=== PATIENT | male | born 1930 | race Caucasian/White ===

== ENCOUNTER → 2016-06-09 | Outpatient (CLI) | payer OTHER ==
[~2016-06-09] MED LIST: IOPAMIDOL (ISOVUE-300) 100 ML BTL IV ONE
== END ==
LOC: FIMAGING 14:21
PROVIDERS: ATTEND Internal Medicine
DX: R93.2 Abnormal findings on diagnostic imaging of liver and biliary tract (principal); J90 Pleural effusion, not elsewhere classified
CPT/HCPCS: 74178; Q9967

== ENCOUNTER 2016-06-10 12:24 | Inpatient (IN) | payer OTHER ==
--- NOTE | 2016-06-10 12:34 | EDPHY ---
H & P Time Seen by Provider: 06/10/16 12:31 HPI/ROS: CHIEF COMPLAINT: Here for embolization HISTORY OF PRESENT ILLNESS: This 85-year-old man has a history of atrial fibrillation and is on Eliquis anticoagulation. He is sent [facility] the [facility] for embolization of a bleeding intrahepatic hepatoma. This 85-year-old man has had bloating nausea and right upper per quadrant abdominal pain for the past 2 weeks. He had an ultrasound 2 days [address] a CT scan yesterday was seen in the gastroenterology office today by Dr. Mcbride and sent here for admission in embolization of a bleeding hepatoma in the right upper quadrant. REVIEW OF SYSTEMS: Eye: no change in vision ENT: no sore throat Cardiac: no chest pain or syncope Pulmonary: no cough or SOB Abdomen: No vomiting or diarrhea. Musculoskeletal: no back pain Skin: Ecchymosis especially on the left arm where he had tape placed a couple of days ago. Neuro: no headache. He is chronically little bit unsteady on his feet but no vertigo and no new symptoms of being off balance. Constitutional: no fever : no urinary symptoms A comprehensive 10 point review of systems is otherwise negative aside from elements mentioned in the history of present illness. PAST MEDICAL HISTORY: History and physical by Dr. Martinez dated 03/12/2016 personally reviewed by myself. Includes hyperkalemia, coronary artery disease with bypass grafting, ventricular tachycardia with AICD, atrial fibrillation, small-bowel obstruction , liver hepatoma as in HPI, aortic aneurysm, malignant melanoma, prostatic hypertrophy, ischemic cardiomyopathy. Social history: No tobacco or alcohol General Appearance: Alert and conversant, cooperative. Eyes: No scleral icterus. ENT, Mouth: Normal mucous membranes. Respiratory: Normal respiratory effort, breath sounds equal, lungs are clear to auscultation. Cardiovascular: Regular rate and rhythm. Gastrointestinal: Abdomen is soft and non tender. Central ventral hernia which is soft and not incarcerated. Neurological: Alert and oriented x3. Normally conversant. Face symmetric, normal movement and sensation in all extremities. Skin: Occasional scattered ecchymoses especially over the left AC. Musculoskeletal: No peripheral edema and no joint swelling. Psychiatric: Not agitated. Emergency Department course/MDM: Labs drawn to include CBC chemistries and coags. Admission to hospitalist with interventional Radiology consultation. Mao at [phone]. [phone]: Hematocrit noted is stable at 39, was 37.4 on 05/31/2016; admission to step-down unit anticipating interventional radiology procedure. Smoking Status: Former smoker Constitutional: Initial Vital Signs Temperature (C) 36.4 C 06/10/16 12:30 Heart Rate 77 06/10/16 12:30 Respiratory Rate 18 06/10/16 12:30 Blood Pressure 96/50 L 06/10/16 12:30 O2 Sat (%) 93 06/10/16 12:30 O2 Delivery Mode Room Air Allergies/Adverse Reactions: amiodarone Allergy (Verified 06/10/16 12:33) Other-Enter Comments aspirin Allergy (Verified 06/10/16 12:33) nitrofurantoin [From Macrobid] Allergy (Verified 06/10/16 12:33) nitrofurantoin macrocrystalline [From Macrobid] Allergy (Verified 06/10/16 12:33 ) Xefklkb-Iyr-Kmi Reductase Inhibitor Allergy (Verified 06/10/16 12:33) Home Medications: Medication Instructions Recorded Multivitamins [Multivitamin (*)] 1 each PO DAILY@12 07/09/14 Sotalol HCl [Betapace 80 MG (*)] 120 mg PO BID 07/09/14 Magnesium Hydroxide [Milk of 30 ml PO DAILY PRN #0 udcup 07/19/14 Magnesia (*)] Docusate Sodium [Colace 100 MG (*)] 100 mg PO BID PRN 03/20/15 Furosemide [Lasix 40 MG (*)] 80 mg PO DAILY@12 03/20/15 Omeprazole [Prilosec 20 mg] 20 mg PO DAILY@12 PRN 03/20/15 Mexiletine HCl [Mexiletine HCl 150 150 mg PO BID #60 cap 03/27/15 mg (*)] Spironolactone [Aldactone 25 MG 25 mg PO BID 01/10/16 (*)] Isosorbide Mononitrate [Imdur 30 15 mg PO DAILY@12 03/12/16 mg (*)] Losartan Potassium [Cozaar 25 mg 12.5 mg PO DAILY@12 03/12/16 (*)] [place]-3 Fatty Acids [Fish Oil 1000 1,000 mg PO BID 03/12/16 mg (*)] Acetaminophen [Tylenol ES 500 mg 1,000 mg PO TID PRN 06/10/16 (*)] Apixaban [Eliquis] 5 mg PO BID 06/10/16 Bismuth Subsalicylate 15 ml PO Q3 06/10/16 [Pepto-Bismol oral liquid (*)] Calcium Carbonate [Tums 500MG (*)] 1,000 mg PO Q4 PRN 06/10/16 Carvedilol [Coreg] 6.25 mg PO DAILY@12 06/10/16 Carvedilol [Coreg] 12.5 mg PO BID 06/10/16 Simethicone [GAS-X] 80 - 160 mg PO QID PRN 06/10/16 Medical Decision Making - Diagnostics EKG Interpretation: 12-lead EKG interpreted by me; official reading is in trace master. My interpretation is ventricular paced rhythm at a rate of 70. Differential Diagnosis: Differential for right upper quadrant abdominal pain considered including but not limited to cholecystitis, hepatitis, bleeding hepatoma, right lower lung problem, shingles. Consult/Admit Bed Type: [place] [id number] - Data Points Laboratory Results: Laboratory Results 06/10/16 12:53 06/10/16 12:53 06/10/16 06/10/16 06/10/16 12:53 12:53 12:53 WBC RBC Hgb Hct MCV MCH MCHC RDW Plt Count MPV Neut % (Auto) Lymph % (Auto) [place] % (Auto) Eos % (Auto) Baso % (Auto) Nucleat RBC Rel Count Absolute Neuts (auto) Absolute Lymphs (auto) Absolute Monos (auto) Absolute Eos (auto) Absolute Basos (auto) Absolute Nucleated RBC Immature Gran % Immature Gran # PT 17.4 SEC H SEC (12.0-15.0) INR 1.43 H (0.83-1.16) APTT 33.8 SEC SEC (23.0-38.0) Sodium 138 mEq/L mEq/L (134-144) Potassium 5.1 mEq/L mEq/L (3.5-5.2) Chloride 97 mEq/L mEq/L (97-110) Carbon Dioxide 31 mEq/l mEq/l (22-31) Anion Gap 10 mEq/L mEq/L (8-16) BUN 27 mg/dL H mg/dL (7-23) Creatinine 1.1 mg/dL mg/dL (0.7-1.3) Estimated GFR > 60 Glucose 85 mg/dL mg/dL (70-100) Calcium 9.1 mg/dL mg/dL (8.5-10.4) Total Bilirubin 1.6 mg/dL H mg/dL (0.1-1.4) Conjugated Bilirubin 0.6 mg/dL H mg/dL (0.0-0.5) Unconjugated Bilirubin 1.0 mg/dL mg/dL (0.0-1.1) AST 202 IU/L H IU/L (17-59) ALT 141 IU/L H IU/L (21-72) Alkaline Phosphatase 263 IU/L H IU/L (38-126) Total Protein 7.9 g/dL g/dL (6.3-8.2) Albumin 3.8 g/dL g/dL (3.5-5.0) Patient ABO/Rh B POSITIVE Antibody Screen NEGATIVE 06/10/16 12:53 WBC 6.02 10^3/uL 10^3/uL (3.80-9.50) RBC 4.13 10^6/uL L 10^6/uL (4.40-6.38) Hgb 12.7 g/dL L g/dL (13.7-17.5) Hct 39.4 % L % (40.0-51.0) MCV 95.4 fL fL (81.5-99.8) MCH 30.8 pg pg (27.9-34.1) MCHC 32.2 g/dL L g/dL (32.4-36.7) RDW 14.3 % % (11.5-15.2) Plt Count 271 10^3/uL 10^3/uL (150-400) MPV 9.5 fL fL (8.7-11.7) Neut % (Auto) 69.2 % % (39.3-74.2) Lymph % (Auto) 18.1 % % (15.0-45.0) [place] % (Auto) 11.0 % % (4.5-13.0) Eos % (Auto) 0.7 % % (0.6-7.6) Baso % (Auto) 0.7 % % (0.3-1.7) Nucleat RBC Rel Count 0.0 % % (0.0-0.2) Absolute Neuts (auto) 4.17 10^3/uL 10^3/uL (1.70-6.50) Absolute Lymphs (auto) 1.09 10^3/uL 10^3/uL (1.00-3.00) Absolute Monos (auto) 0.66 10^3/uL 10^3/uL (0.30-0.80) Absolute Eos (auto) 0.04 10^3/uL 10^3/uL (0.03-0.40) Absolute Basos (auto) 0.04 10^3/uL 10^3/uL (0.02-0.10) Absolute Nucleated RBC 0.00 10^3/uL 10^3/uL (0-0.01) Immature Gran % 0.3 % % (0.0-1.1) Immature Gran # 0.02 10^3/uL 10^3/uL (0.00-0.10) PT INR APTT Sodium Potassium Chloride Carbon Dioxide Anion Gap BUN Creatinine Estimated GFR Glucose Calcium Total Bilirubin Conjugated Bilirubin Unconjugated Bilirubin AST ALT Alkaline Phosphatase Total Protein Albumin Patient ABO/Rh Antibody Screen Departure - Departure Disposition: [facility] Acute Clinical Impression: Hepatoma Condition: Serious
[2016-06-10 13:11] LABS: % IMMATURE GRANULYOCYTES 0.3 % (0.0-1.1); ABSOLUTE IMMATURE GRANULOCYTES 0.02 10^3/uL (0.00-0.10); ADD DIFF? NO; ADD MORPH? NO; ADD SCAN? NO; ATYPICAL LYMPHOCYTE FLAG 0 (0-99); FRAGMENT RBC FLAG 0 (0-99); HEMATOCRIT 39.4 % (40.0-51.0); HEMOGLOBIN 12.7 g/dL (13.7-17.5); LEFT SHIFT FLG 0 (0-99); LIPEMIA HEMOLYSIS FLAG 80 (0-99); MEAN CELL HEMOGLOBIN 30.8 pg (27.9-34.1); MEAN CELL HEMOGLOBIN CONCENTR. 32.2 g/dL (32.4-36.7); MEAN CELL VOLUME 95.4 fL (81.5-99.8); MEAN PLATELET VOLUME 9.5 fL (8.7-11.7); PLATELET CLUMPS FLAG 0 (0-99); PLATELET COUNT 271 10^3/uL (150-400); RED BLOOD CELL COUNT 4.13 10^6/uL (4.40-6.38); RED CELL DISTRIBUTION WIDTH 14.3 % (11.5-15.2)
[2016-06-10 13:22] LABS: INR 1.43 (0.83-1.16); PROTIME(PATIENT) 17.4 SEC (12.0-15.0)
[2016-06-10 13:23] LABS: APTT 33.8 SEC (23.0-38.0)
[2016-06-10 13:35] LABS: ALANINE AMINOTRANSFERASE 141 IU/L (21-72); ALBUMIN 3.8 g/dL (3.5-5.0); ALKALINE PHOSPHATASE 263 IU/L (38-126); ANION GAP 10 mEq/L (8-16); ASPARTATE AMINOTRANSFERASE 202 IU/L (17-59); BILIRUBIN,TOTAL 1.6 mg/dL (0.1-1.4); BILIRUBIN-CONJUGATED 0.6 mg/dL (0.0-0.5); CALCIUM 9.1 mg/dL (8.5-10.4); CARBON DIOXIDE 31 mEq/l (22-31); CHLORIDE 97 mEq/L (97-110); CREATININE 1.1 mg/dL (0.7-1.3); GLOMERULAR FILTRATION RATE > 60; GLUCOSE 85 mg/dL (70-100); POTASSIUM 5.1 mEq/L (3.5-5.2); SODIUM 138 mEq/L (134-144); TOTAL PROTEIN 7.9 g/dL (6.3-8.2)
[2016-06-10] MEDS ORDERED: ONDANSETRON 4 MG/2 ML VIAL IVP PRN (14:07)
[2016-06-10] MEDS ORDERED: HYDROmorphONE/DILAUDID 1 MG/ML SYR IVP PRN (14:07)
[2016-06-10] MEDS ORDERED: oxyCODONE IR 5 MG TAB PO PRN (14:07)
[2016-06-10] MEDS ORDERED: ONDANSETRON DISINTEGRATING 4 MG TAB PO PRN (14:07)
[2016-06-10] MEDS ORDERED: NS 1,000 ML IV SCH (14:15)
--- NOTE | 2016-06-10 14:22 | PDGENHP ---
History and Physical - Chief Complaint abdominal pain and bloating - History of Present Illness 85 yo M with MMI including CAD, iCM with most recent EF of 30% as well as A fib on chronic anticoagulation and a known liver mass previously thought to be benign admitted with concerns from GI that he is likely bleeding into this liver tumor. He has been dealing with recurrent UTI versus prostatitis for the last several months and due to that has been on a prolonged course fo macrobid. This was thought to be resolved per his report when he developed the abdominal pain and bloating. He has been seen both by his PCP and GI and has had imaging including abd US and most recently an abdominal CT. The CT showed that this liver lesion had significantly increased in size and it noted to be hypervascular with internal hemorrhage and active bleeding. He was sent here for admission and presumably IR intervention for the bleeding. He notes that other than the abdominal pain and bloating he has felt more or less in his usual state of health. He is not having lightheadedness or fainting, has not had n/v or bowel changes. History Information - Allergies/Home Medication List Allergies/Adverse Reactions: amiodarone Allergy (Verified 06/10/16 12:33) Other-Enter Comments aspirin Allergy (Verified 06/10/16 12:33) nitrofurantoin [From Macrobid] Allergy (Verified 06/10/16 12:33) nitrofurantoin macrocrystalline [From Macrobid] Allergy (Verified 06/10/16 12:33 ) Bhlgczy-Rka-Qip Reductase Inhibitor Allergy (Verified 06/10/16 12:33) Home Medications: Multivitamins [Multivitamin (*)] 1 each PO DAILY@12 07/09/14 [Last Taken ] Sotalol HCl [Betapace 80 MG (*)] 120 mg PO BID 07/09/14 [Last Taken 06/10/16 09: 00] Docusate Sodium [Colace 100 MG (*)] 100 mg PO BID PRN 03/20/15 [Last Taken 03/12 09:00] Furosemide [Lasix 40 MG (*)] 80 mg PO DAILY@12 03/20/15 [Last Taken 06/09/16] Omeprazole [Prilosec 20 mg] 20 mg PO DAILY@12 PRN 03/20/15 [Last Taken 03/11/16] Spironolactone [Aldactone 25 MG (*)] 25 mg PO BID 01/10/16 [Last Taken 06/10/16] Isosorbide Mononitrate [Imdur 30 mg (*)] 15 mg PO DAILY@12 03/12/16 [Last Taken 06/09/16] Losartan Potassium [Cozaar 25 mg (*)] 12.5 mg PO DAILY@12 03/12/16 [Last Taken 06/09/16] [place]-3 Fatty Acids [Fish Oil 1000 mg (*)] 1,000 mg PO BID 03/12/16 [Last Taken 03/12/16 09:00] Acetaminophen [Tylenol ES 500 mg (*)] 1,000 mg PO TID PRN 06/10/16 [Last Taken Unknown] Apixaban [Eliquis] 5 mg PO BID 06/10/16 [Last Taken 06/10/16] Bismuth Subsalicylate [Pepto-Bismol oral liquid (*)] 15 ml PO Q3 06/10/16 [Last Taken Unknown] Calcium Carbonate [Tums 500MG (*)] 1,000 mg PO Q4 PRN 06/10/16 [Last Taken Unknown] Carvedilol [Coreg] 6.25 mg PO DAILY@12 06/10/16 [Last Taken 06/10/16 08:00] Carvedilol [Coreg] 12.5 mg PO BID 06/10/16 [Last Taken 06/10/16 08:00] Simethicone [GAS-X] 80 - 160 mg PO QID PRN 06/10/16 [Last Taken Unknown] I have personally reviewed and updated: family history, medical history, social history, surgical history - Past Medical History atrial fibrillation, coronary artery disease, cancer (malignant melanoma), CHF ( ischemic CM with EF of 15% and now 30%), hypertension, hyperlipidemia, liver disease (known liver mass, previously thought to be benign, as per HPI) Additional medical history: BPH. VT with VT storm requiring ablation. AAA - Surgical History Reports: coronary bypass surgery, cholecystectomy, pacemaker/AICD Additional surgical history: AAA repair. small bowel resection for SBO with HARRIS and bezoar - Family History Positive for: non-pertinent - Social History Smoking Status: Former smoker Alcohol Use: None Drug Use: None Additional social history: , lives independently with Review of Systems ROS: 10pt was reviewed & negative except for what was stated in HPI & below Physical Exam Temp Pulse Resp BP Pulse Ox 36.4 C 77 18 96/50 L 93 06/10/16 12:30 06/10/16 12:30 06/10/16 12:30 06/10/16 12:30 06/10/16 12:30 Constitutional: not in pain, chronically ill appearing Eyes: PERRL Ears, Nose, Mouth, Throat: moist mucous membranes, hearing normal Cardiovascular: regular rate and rhythym, no murmur, rub, or gallop, edema Respiratory: no respiratory distress, no rales or rhonchi, reduced air movement (at bases bilaterally) Gastrointestinal: normoactive bowel sounds, tenderness (slight ttp in ruq), distension, No guarding, No rebound Genitourinary: no bladder tenderness Skin: warm, normal color Musculoskeletal: full muscle strength, No asymmetric calves, No muscular tenderness Neurologic: AAOx3, CN II-XII Intact Psychiatric: interacting appropriately, not anxious, not encephalopathic Lab Data & Imaging Review 06/10/16 12:53 06/10/16 12:53 WBC 6.02 10^3/uL (3.80-9.50) 06/10/16 12:53 RBC 4.13 10^6/uL (4.40-6.38) L 06/10/16 12:53 Hgb 12.7 g/dL (13.7-17.5) L 06/10/16 12:53 Hct 39.4 % (40.0-51.0) L 06/10/16 12:53 MCV 95.4 fL (81.5-99.8) 06/10/16 12:53 MCH 30.8 pg (27.9-34.1) 06/10/16 12:53 MCHC 32.2 g/dL (32.4-36.7) L 06/10/16 12:53 RDW 14.3 % (11.5-15.2) 06/10/16 12:53 Plt Count 271 10^3/uL (150-400) 06/10/16 12:53 MPV 9.5 fL (8.7-11.7) 06/10/16 12:53 Neut % (Auto) 69.2 % (39.3-74.2) 06/10/16 12:53 Lymph % (Auto) 18.1 % (15.0-45.0) 06/10/16 12:53 [place] % (Auto) 11.0 % (4.5-13.0) 06/10/16 12:53 Eos % (Auto) 0.7 % (0.6-7.6) 06/10/16 12:53 Baso % (Auto) 0.7 % (0.3-1.7) 06/10/16 12:53 Nucleat RBC Rel Count 0.0 % (0.0-0.2) 06/10/16 12:53 Absolute Neuts (auto) 4.17 10^3/uL (1.70-6.50) 06/10/16 12:53 Absolute Lymphs (auto) 1.09 10^3/uL (1.00-3.00) 06/10/16 12:53 Absolute Monos (auto) 0.66 10^3/uL (0.30-0.80) 06/10/16 12:53 Absolute Eos (auto) 0.04 10^3/uL (0.03-0.40) 06/10/16 12:53 Absolute Basos (auto) 0.04 10^3/uL (0.02-0.10) 06/10/16 12:53 Absolute Nucleated RBC 0.00 10^3/uL (0-0.01) 06/10/16 12:53 Immature Gran % 0.3 % (0.0-1.1) 06/10/16 12:53 Immature Gran # 0.02 10^3/uL (0.00-0.10) 06/10/16 12:53 PT 17.4 SEC (12.0-15.0) H 06/10/16 12:53 INR 1.43 (0.83-1.16) H 06/10/16 12:53 APTT 33.8 SEC (23.0-38.0) 06/10/16 12:53 Sodium 138 mEq/L (134-144) 06/10/16 12:53 Potassium 5.1 mEq/L (3.5-5.2) 06/10/16 12:53 Chloride 97 mEq/L (97-110) 06/10/16 12:53 Carbon Dioxide 31 mEq/l (22-31) 06/10/16 12:53 Anion Gap 10 mEq/L (8-16) 06/10/16 12:53 BUN 27 mg/dL (7-23) H 06/10/16 12:53 Creatinine 1.1 mg/dL (0.7-1.3) 06/10/16 12:53 Estimated GFR > 60 06/10/16 12:53 Glucose 85 mg/dL (70-100) 06/10/16 12:53 Calcium 9.1 mg/dL (8.5-10.4) 06/10/16 12:53 Total Bilirubin 1.6 mg/dL (0.1-1.4) H 06/10/16 12:53 Conjugated Bilirubin 0.6 mg/dL (0.0-0.5) H 06/10/16 12:53 Unconjugated Bilirubin 1.0 mg/dL (0.0-1.1) 06/10/16 12:53 AST 202 IU/L (17-59) H 06/10/16 12:53 ALT 141 IU/L (21-72) H 06/10/16 12:53 Alkaline Phosphatase 263 IU/L (38-126) H 06/10/16 12:53 Total Protein 7.9 g/dL (6.3-8.2) 06/10/16 12:53 Albumin 3.8 g/dL (3.5-5.0) 06/10/16 12:53 Patient ABO/Rh B POSITIVE 06/10/16 12:53 Antibody Screen NEGATIVE 06/10/16 12:53 Visualized and Interpreted imaging results: Yes Interpretation: abdominal CT from 06/09: large hypervascular mass in R lobe of liver increased signficantly in size from prior w/ internal hemorrhage and active bleeding. --8th rib lesion most c/w metastasis Assessment & Plan Assessment: 85 yo M with MMI including CAD, CHF, A fib on chronic AC presenting with bleeding into liver mass # bleeding liver mass: noted to have active bleeding into large liver mass, most c/w HCC on imaging though previously benign on biopsy. IR is aware and plans to to perform angio in the am so long as he remains stable overnight-- patient did take his eliquis this am. Currently H/H are stable and hemodynamically stable though mildly hypotensive. Will trend h/h. Admit for close monitoring. # liver mass: as above with evidence of active bleeding and mass significantly increased from prior. Given comorbidities and patient goals, there are not plans to aggressively treat this mass. Is followed by [facility]. # chronic systolic heart failure: with EF of 30% most recently, appears to be largely euvolemic currently. Will monitor daily weight. Continue OP medications # a fib: with hx of multiple prior ablations, anti-coagulated as above, will hold eliquis for now and monitor on tele # CAD: without any recent issues, continue op meds # hx of: malignant melanoma, HTN, HLD, BPH # recent recurrent UTI/prostatitis: followed by urology, had been on macrobid for a prolonged period of time which is now listed as an allergy. Last urine culture showing > 100K or normal urogenital bonny on 05/31. No current sxs # dispo :IP status, high risk presenting issues Patient is new to my care. Old records reviewed and summarized as above. Care plan reviewed with ER doctor and Dr. Singh of IR.
[2016-06-10] MEDS ORDERED: ACETAMINOPHEN 500 MG TAB PO PRN (15:00)
[2016-06-10] MEDS ORDERED: DOCUSATE SODIUM 100 MG CAP PO PRN (15:00)
[2016-06-10] MEDS ORDERED: SIMETHICONE 80 MG TAB CHEW PO PRN (15:00)
--- NOTE | 2016-06-10 15:57 | CPEKG ---
Heart Rate: 70 RR Interval: 857 P-R Interval: 206 QRSD Interval: 178 QT Interval: 460 QTC Interval: 497 P Jarreau: 0 QRS Jarreau: 143 EKG Severity - ABNORMAL ECG - EKG Impression: VENTRICULAR-PACED RHYTHM Electronically Signed By: Noble Schrader 10-Jun-2016 16:29:23
[2016-06-10] MEDS: BISMUTH SUBSALICYLATE 524 MG/30 ML UDL PO SCH ×4 (17:33→23:58)
--- NOTE | 2016-06-10 17:52 | GCON ---
INPATIENT CONSULTATION NOTE REASON FOR CONSULTATION: Right upper quadrant pain and abnormal imaging of the GI tract. CHIEF COMPLAINT: Abdominal pain. HISTORY OF PRESENT ILLNESS: Briefly, the patient is an 85-year-old male with a history of chronic liver disease. He is uncertain exactly the nature of his chronic liver disease. He reports that he has been told over the last many decades of intermittent liver problems. He has undergone prior liver biopsy, including biopsy of an apparent liver mass. He reports these tests have been nondiagnostic. Over the last several weeks, he was noticing increasing abdominal discomfort. He recently had a urinary tract infection for which he was treated with antibiotics. After his urinary tract infection was resolved, he continued to have abdominal symptoms. His primary care doctor worked up those symptoms with laboratory testing and imaging. Imaging revealed a hepatic lesion with probable bleeding into it. With those symptoms and imaging findings , he was asked to present to the hospital for further management. PAST MEDICAL HISTORY: Includes atrial fibrillation for which he is on anticoagulation, dysphagia, elevated liver enzymes, esophagitis, heart disease, hypertension. Also has a recent history of congestive heart failure and has had an AICD and pacemaker placed. It was initially felt that his liver lesion was focal nodular hyperplasia. OUTPATIENT MEDICATIONS: Antacids, carvedilol, Colace, Eliquis, fish oil, isosorbide dinitrate, Klor-Con, Lasix, losartan, mexiletine, multivitamin, omeprazole, Pepto-Bismol, simethicone, milk of magnesia, sotalol, spironolactone , and Tylenol. ALLERGIES: Flomax. SOCIAL HISTORY: He drinks 3 cups of coffee a day. Does not smoke; was a former smoker. Is not using alcohol; his last alcohol use was in the ; prior to that, he drank on social occasions. He does not use any drugs. He is currently retired and . FAMILY HISTORY: Negative for chronic liver disease or liver cancer. His sister did have perhaps esophageal and lung cancer. REVIEW OF SYSTEMS: A complete 10-system review is undertaken with the patient and is negative except for those details described in the History of Present Illness. Pertinent positives and negatives are described there. PHYSICAL EXAM: GENERAL: This is a well-developed, well-nourished male, in no apparent distress. SKIN: Warm and dry. He has no icterus. HEENT: Exam reveals normocephalic exam with no scleral icterus. His oropharynx is grossly normal. NECK: Supple without lymphadenopathy. HEART: Regular without murmur. LUNGS: Normal with good respiratory effort. ABDOMEN: Soft, nontender. He has minimal right upper quadrant tenderness. There is no masses , rebound, or guarding. EXTREMITIES: Show no edema, cyanosis, or clubbing. NEURO: Exam is grossly nonfocal. He has no asterixis. MUSCULOSKELETAL: He appears to have good range of motion with normal station. LABORATORY TESTING: On 06/09/16, he had an abdominal and pelvis CT scan with and without IV contrast which revealed large hypervascular mass in the right lobe of the liver that has increased in size since June of 2014 and is suspicious for hepatocellular carcinoma. The mass has internal hemorrhage and probable active bleeding contained within the liver capsule. There are also numerous new hypervascular lesions scattered throughout the liver, suspicious for new multicentric hepatocellular carcinoma. There is also trace reactive stranding and fluid along the posterior capsule without hemoperitoneum. There is a sclerotic right 8th rib lesion as well. White count of 6.01, hematocrit of 39.4, hemoglobin of 12.7, platelet count of 271. INR of 1.43. Sodium of 138, potassium of 5.1, chloride of 97, bicarb of 31, BUN of 27, creatinine of 1.1. AST of 202, ALT of 141, alkaline phosphatase of 263, total bilirubin of 1.6. AFP of 3.6. IMPRESSION/RECOMMENDATIONS: The patient has been diagnosed with a liver mass with internal bleeding. The differential diagnosis for this includes hemangioma , hepatoma, focal nodular hyperplasia, etc. The radiographic appearance would be consistent with hepatoma. He reports having an uncertain chronic liver disease, to the degree that that may lead to cirrhosis, this would increase his likelihood of developing hepatoma. Given his ongoing symptoms and radiographic findings, additional management workup is necessary. IR services will be consulted in order to consider embolization of the bleeding into this lesion. We may need to consider repeat biopsy as well. AFP was normal, but this can be normal in as many as 40% of true hepatomas. Pending the success of the IR intervention, additional liver work-up may be indicated. It is not clear to me if the patient has underlying chronic liver disease. I will obtain his prior workup to review. /[id number]/MODL MTDD
[2016-06-10] MEDS: LOSARTAN POTASSIUM 25 MG TAB PO SCH (18:00)
[2016-06-10] MEDS: ISOSORBIDE MONONITRATE 30 MG TAB.SR PO SCH (18:02)
[2016-06-10] MEDS: CARVEDILOL 6.25 MG TAB PO SCH (18:21)
[2016-06-10] MEDS: ACETAMINOPHEN 325 MG TAB PO PRN (21:04)
[2016-06-10] MEDS: MAGNESIUM HYDROXIDE 30 ML UDCUP PO PRN (21:05)
[2016-06-10] MEDS: SOTALOL HCL 80 MG TAB PO SCH (21:05)
[2016-06-10] MEDS: OMEGA-3 FATTY ACIDS 1,000 MG CAP PO SCH (21:08)
[2016-06-10] MEDS: MEXILETINE HCL 150 MG CAP PO SCH (21:11)
[2016-06-10 22:58] LABS: HEMATOCRIT 32.6 % (40.0-51.0); HEMOGLOBIN 10.9 g/dL (13.7-17.5)
[2016-06-10] MEDS: CALCIUM CARBONATE 500 MG CHEWABLE TAB PO PRN (23:02)
[2016-06-10] MEDS: PANTOPRAZOLE SODIUM 40 MG TAB PO PRN (23:20)
[2016-06-11] MEDS: BISMUTH SUBSALICYLATE 524 MG/30 ML UDL PO SCH ×8 (00:07→20:23)
[2016-06-11 05:06] LABS: % IMMATURE GRANULYOCYTES 0.5 % (0.0-1.1); ABSOLUTE IMMATURE GRANULOCYTES 0.02 10^3/uL (0.00-0.10); ADD DIFF? NO; ADD MORPH? NO; ADD SCAN? NO; ATYPICAL LYMPHOCYTE FLAG 0 (0-99); FRAGMENT RBC FLAG 0 (0-99); HEMATOCRIT 32.9 % (40.0-51.0); HEMOGLOBIN 10.7 g/dL (13.7-17.5); LEFT SHIFT FLG 0 (0-99); LIPEMIA HEMOLYSIS FLAG 80 (0-99); MEAN CELL HEMOGLOBIN 30.7 pg (27.9-34.1); MEAN CELL HEMOGLOBIN CONCENTR. 32.5 g/dL (32.4-36.7); MEAN CELL VOLUME 94.3 fL (81.5-99.8); MEAN PLATELET VOLUME 9.5 fL (8.7-11.7); PLATELET CLUMPS FLAG 0 (0-99); PLATELET COUNT 171 10^3/uL (150-400); RED BLOOD CELL COUNT 3.49 10^6/uL (4.40-6.38); RED CELL DISTRIBUTION WIDTH 14.1 % (11.5-15.2)
[2016-06-11 05:20] LABS: ALANINE AMINOTRANSFERASE 155 IU/L (21-72); ALBUMIN 2.8 g/dL (3.5-5.0); ALKALINE PHOSPHATASE 198 IU/L (38-126); ANION GAP 5 mEq/L (8-16); ASPARTATE AMINOTRANSFERASE 260 IU/L (17-59); BILIRUBIN,TOTAL 1.4 mg/dL (0.1-1.4); CALCIUM 8.2 mg/dL (8.5-10.4); CARBON DIOXIDE 29 mEq/l (22-31); CHLORIDE 101 mEq/L (97-110); CREATININE 0.9 mg/dL (0.7-1.3); GLOMERULAR FILTRATION RATE > 60; GLUCOSE 69 mg/dL (70-100); POTASSIUM 4.3 mEq/L (3.5-5.2); SODIUM 135 mEq/L (134-144); TOTAL PROTEIN 6.1 g/dL (6.3-8.2)
[2016-06-11] MEDS: MEXILETINE HCL 150 MG CAP PO SCH ×2 (08:31→17:52)
[2016-06-11] MEDS: ACETAMINOPHEN 325 MG TAB PO PRN (08:31)
[2016-06-11] MEDS: SOTALOL HCL 80 MG TAB PO SCH ×2 (08:32→20:23)
[2016-06-11] MEDS: CARVEDILOL 6.25 MG TAB PO SCH ×3 (08:32→17:52)
[2016-06-11] MEDS ORDERED: POTASSIUM CL 20 MEQ TAB PO ONE (09:30)
[2016-06-11] MEDS: CALCIUM CARBONATE 500 MG CHEWABLE TAB PO PRN (10:26)
[2016-06-11] MEDS: OMEGA-3 FATTY ACIDS 1,000 MG CAP PO SCH ×2 (10:42→20:23)
[2016-06-11] MEDS ORDERED: MIDAZOLAM 2 MG/2 ML VIAL ONE ×2 (11:40→13:48)
[2016-06-11] MEDS ORDERED: fentaNYL 100 MCG/2 ML INJ ONE ×2 (11:41→13:48)
--- NOTE | 2016-06-11 11:48 | SOAPPROG ---
[facility] Progress Note Assessment/Plan: Assessment/Plan: 1. Liver lesion: - diagnosis uncertain - imaging has been suggestive of hepatoma - wedge bx in 2015 was consistent with FNH - recent clinical behavior (bleeding, localized spread) is more consistent with hepatoma - no obvious hx of fpc chronic liver disease - await IR intervention with embolization and bx - Dr. Ibrahim to assume GI rounds starting tonight at 1700, call with any questions. Subjective: CC: getting bored S: no pain no nausea no vomiting no diarrhea no jaundice no fever no dizziness feels hungry Objective: Vital Signs Temp Pulse Resp BP Pulse Ox 36.7 C 70 20 112/53 L 97 06/11/16 07:52 06/11/16 08:32 06/11/16 07:52 06/11/16 08:32 06/11/16 07:52 Laboratory Results 06/11/16 04:55 06/11/16 04:55 06/10/16 06/11/16 06/12/16 05:59 05:59 05:59 Intake Total 450 Output Total 875 Balance -425 PT 17.4 SEC (12.0-15.0) H 06/10/16 12:53 INR 1.43 (0.83-1.16) H 06/10/16 12:53 Physical Exam - Physical Exam General Appearance: alert EENT: No scleral icterus (R), No scleral icterus (L) Respiratory: lungs clear Cardiac/Chest: regular rate, rhythm, No edema Abdomen: normal bowel sounds Skin: normal color Extremities: normal range of motion Neuro/Psych: no motor/sensory deficits ICD10 Worksheet Patient Problems: Problems Problem Status Onset Hepatoma Acute Abdominal pain, epigastric Acute Afib Acute CHF (congestive heart failure) Acute Chest pain Acute Coronary artery disease Acute Hyperkalemia Acute Ischemic cardiomyopathy Acute Palpitations Acute Urinary tract infection Acute Ventricular tachycardia Acute Ventricular tachycardia by electrocardiogram Acute
[2016-06-11] MEDS ORDERED: NA BICARBONATE 50 MEQ/50 ML VIAL ONE (13:21)
[2016-06-11] MEDS ORDERED: LIDOCAINE 1% 30 ML SDV ONE (13:21)
--- NOTE | 2016-06-11 13:44 | GCON ---
CRITICAL CARE CONSULT. The patient is an 85-year-old male, with a history of cardiomyopathy with a known ejection fraction of 30%, and atrial fibrillation, along with other tachycardic issues. He has had a known liver mass that apparently was biopsied in the past consistent with FNH, who was admitted after imaging in the GI clinic noted an increasing size of a hepatoma, while he was having complaints of nausea and righ t upper quadrant pain for the last 2 weeks. In any case, he denied any symptoms today and is waitin g to go to Interventional Radiology for potential embolization. He is having some difficulty with m anaging his medications, which have been addressed elsewhere. REVIEW OF SYSTEMS: Otherwise negative. PAST MEDICAL HISTORY: Includes: 1. Ischemic cardiomyopathy with an ejection fraction of 30%. 2. Coronary artery disease. 3. Atrial fibrillation. 4. Chronic or recurrent urinary tract infections. 5. History of ventricular tachycardia requiring ablation. 6. Gastroesophageal reflux disease. 7. Melanoma. 8. Hypertension. 9. Hyperlipidemia. 10. Abdominal aortic aneurysm. 11. The liver mass as described above. PAST SURGICAL HISTORY: Includes coronary artery bypass grafting, pacemaker placement, cholecystecto my, AAA repair, and previous small bowel resection with lysis of adhesions due to a bezoar. SOCIAL HISTORY: He is a remote smoker, no alcohol or IV drug use. FAMILY HISTORY: Noncontributory. MEDICATIONS: Include sotalol, Lasix, omeprazole, Aldactone, Imdur, losartan, Eliquis, and carvedilo l. PHYSICAL EXAMINATION: VITAL SIGNS: He is afebrile, his blood pressure is 104/48, heart rate of 70, and sinus rhythm, respiratory rate of 18, oxygen saturation 98% on 2 L. He was awake and alert, in no apparent distress, and did not complain about medications to me. He spoke in full sentences wit hout using accessory muscles of breathing. HEENT: Pupils are equally round and reactive to light, noninjected, and nonicteric. Mucous membranes were dry but no erythema or exudate. NECK: Supple, without adenopathy or jugular vein distention. RESPIRATORY: Breath sounds are clear to auscultatio n bilaterally, without wheezes, rubs or rales. HEART: Regular rate and rhythm, without obvious mur mur to me. ABDOMEN: Soft, only tender to very deep palpation, but no rebound, no guarding, and nor moactive bowel tones. EXTREMITIES: Show no clubbing, cyanosis, or edema. NEUROLOGIC: Exam is non focal. LABORATORIES: Objective data includes his white count of 3.89, hematocrit 32, platelets of 171, INR was 1.4 yesterday, PTT was normal. Basic metabolic panel was normal. His AST was 260 today, 155 f or the ALT, 198 for alkaline phosphatase, albumin of 2.8. ASSESSMENT: 1. Intrahepatic bleeding with stable hemodynamics and blood counts. He is going to Interventional Radiology soon for embolization of this lesion, but otherwise has a very benign abdomen. 2. Atrial fibrillation and other arrhythmias. Because of his lowish blood pressure it is probably reasonable to continue his carvedilol at this time, maybe holding his sotalol to make sure that his rate stays reasonably well-controlled. Because his blood pressure is low I would probably hold his Imdur for now, and monitor for any sort of changes. In addition, the losartan should be held becaus e of his low blood pressure. 3. Transaminitis, this is likely due to his probable hepatoma. My understanding is that he is not interested in further workup of this mass at this time, but is interested in stopping any further bl eeding. /[id number]/MODL
[2016-06-11] MEDS ORDERED: IOPAMIDOL (ISOVUE-300) 100 ML BTL IV ONE (14:45)
[2016-06-11] MEDS ORDERED: HEPARIN 10,000 UNIT/10 ML MDV ONE (14:45)
[2016-06-11] MEDS ORDERED: NALOXONE HCL 0.4 MG/ML INJ IVP PRN (14:50)
[2016-06-11] MEDS ORDERED: HYDROmorphONE/DILAUDID 6 MG/30 ML PCA IV PRN (14:50)
--- NOTE | 2016-06-11 14:53 | POSTOPPROG ---
Post Op Note Date of Operation: 06/11/16 Surgeon: Lizy Singh Anesthesia: IV Sedation (fentanyl and versed) Pre-op Diagnosis: large liver masses, bleeding Post-op Diagnosis: same Indication: hypotension from bleeding Procedure: liver angiogram with embolization Findings: inferior RT hepatic artery bleeding, embolized Inf/Abcess present in the surg proc area at time of surgery?: No Depth: Superfical (Skin SQ) EBL: Minimal Complications: None
[2016-06-11] MEDS ORDERED: NS 1,000 ML IV SCH (15:00)
[2016-06-11] MEDS: MULTIVITAMINS 1 EACH TAB PO SCH (15:54)
[2016-06-11] MEDS: ISOSORBIDE MONONITRATE 30 MG TAB.SR PO SCH (15:54)
[2016-06-11] MEDS: LOSARTAN POTASSIUM 25 MG TAB PO SCH (15:54)
--- NOTE | 2016-06-11 16:38 | PDCARPN ---
Cardiology Progress Note Assessment/Plan: Assessment: Patient is an 85-year-old male well-known to me who has a complex cardiac history which includes CAD with prior CABG, ischemic cardiomyopathy with severely reduced left ventricular systolic function, s/p biventricular pacemaker /ICD, paroxysmal atrial fibrillation, and ventricular tachycardia. Currently hospitalized because of concerns over her bleeding into a hepatic mass. Patient has had a liver tumor for several years. It was previously biopsied and found to be nonmalignant. 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 He underwent an IR embolization procedure earlier today without complications. He reports that he has been stable with respect to his heart. He has not had any recent episodes of angina. His weight/volume status had been stable. He has not had any tachycardia episodes or shocks from his ICD. Plan: > Continue his usual cardiac medications as his blood pressure allows. > His most important medications are his sotalol, mexiletine, and carvedilol since they relate directly to his significant arrhythmia history. > Additionally, he tends to have more episodes of tachycardia and atrial fibrillation with relatively normal potassium levels- i.e; less than 4.5. > Goal serum potassium level for him is close to 5.0. > His Eliquis is currently on hold because of his admitting diagnosis and procedure. This can be held for as long as it is medically necessary and should be restarted as soon as it is safe to do so. 06/11/16 16:32 Subjective: No complaints. Reviewed/Discussed With: family Objective: Vital Signs (8 Hrs) Temp Pulse Resp BP Pulse Ox 06/11/16 11:36 36.6 C 70 18 104/48 L 98 06/11/16 08:32 70 112/53 L Intake/Output (24 Hrs) 06/10/16 06/11/16 06/12/16 05:59 05:59 05:59 Intake Total 450 Output Total 875 Balance -425 Intake: Oral (ml) 450 Output: Urine (ml) 875 Urinal 875 Other: Weight 80.739 kg 81.148 kg Intake Quantity Yes Sufficient Number of Voids Urinal 4 Number of Stools Urinal 4 1 Result Diagrams: 06/11/16 04:55 06/11/16 04:55 - Physical Exam Constitutional: other (chronically ill-appearing) Eyes: anicteric sclera Ears, Nose, Mouth, Throat: moist mucous membranes Cardiovascular: regular rate and rhythm Respiratory: clear to auscultate bilat Gastrointestinal: normoactive bowel sounds, no tenderness Skin: no rashes, no edema Neurologic: AAOx3 Psychiatric: not anxious ICD10 Worksheet Patient Problems: Problems Problem Status Onset Abdominal pain, epigastric Acute Afib Acute Ischemic cardiomyopathy Acute Coronary artery disease Acute Ventricular tachycardia Acute Palpitations Acute Chest pain Acute Ventricular tachycardia by electrocardiogram Acute Hyperkalemia Acute Urinary tract infection Acute CHF (congestive heart failure) Acute Hepatoma Acute
--- NOTE | 2016-06-11 16:54 | HOSPPROG ---
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 Will monitor daily weight. Continue OP medications # a fib: with hx of multiple prior ablations, anti-coagulated as above, will hold eliquis for now and monitor on tele # CAD: without any recent issues, continue op meds # hx of: malignant melanoma, HTN, HLD, BPH # recent recurrent UTI/prostatitis: followed by urology, had been on macrobid for a prolonged period of time which is now listed as an allergy. Last urine culture showing > 100K or normal urogenital bonny on 05/31. No current sxs # dispo :IP status, probable home tomorrow if stable Subjective: status post liver ambulation. Having some right upper quadrant pain. No new complaints Objective: Vital Signs Temp Pulse Resp BP Pulse Ox 36.6 C 70 18 104/48 L 98 06/11/16 11:36 06/11/16 11:36 06/11/16 11:36 06/11/16 11:36 06/11/16 11:36 Laboratory Results 06/11/16 04:55 06/11/16 04:55 06/10/16 06/11/16 06/12/16 05:59 05:59 05:59 Intake Total 450 Output Total 875 Balance -425 PT 17.4 SEC (12.0-15.0) H 06/10/16 12:53 INR 1.43 (0.83-1.16) H 06/10/16 12:53 - Physical Exam Constitutional: no apparent distress, appears nourished, not in pain Eyes: anicteric sclera, EOMI Ears, Nose, Mouth, Throat: moist mucous membranes Cardiovascular: regular rate and rhythym Respiratory: no respiratory distress, no rales or rhonchi, clear to auscultation Gastrointestinal: normoactive bowel sounds, soft, non-tender abdomen, no palpable masses Skin: warm Neurologic: AAOx3 Psychiatric: interacting appropriately, not anxious, not encephalopathic, thought process linear ICD10 Worksheet Patient Problems: Problems Problem Status Onset Hepatoma Acute Abdominal pain, epigastric Acute Afib Acute CHF (congestive heart failure) Acute Chest pain Acute Coronary artery disease Acute Hyperkalemia Acute Ischemic cardiomyopathy Acute Palpitations Acute Urinary tract infection Acute Ventricular tachycardia Acute Ventricular tachycardia by electrocardiogram Acute
[2016-06-11] MEDS: PANTOPRAZOLE SODIUM 40 MG TAB PO PRN (20:24)
[2016-06-12] MEDS: BISMUTH SUBSALICYLATE 524 MG/30 ML UDL PO SCH ×5 (01:08→14:00)
[2016-06-12 04:28] LABS: % IMMATURE GRANULYOCYTES 0.5 % (0.0-1.1); ABSOLUTE IMMATURE GRANULOCYTES 0.04 10^3/uL (0.00-0.10); ADD DIFF? NO; ADD MORPH? NO; ADD SCAN? NO; ATYPICAL LYMPHOCYTE FLAG 0 (0-99); FRAGMENT RBC FLAG 0 (0-99); HEMATOCRIT 36.8 % (40.0-51.0); HEMOGLOBIN 11.9 g/dL (13.7-17.5); LEFT SHIFT FLG 0 (0-99); LIPEMIA HEMOLYSIS FLAG 80 (0-99); MEAN CELL HEMOGLOBIN 30.5 pg (27.9-34.1); MEAN CELL HEMOGLOBIN CONCENTR. 32.3 g/dL (32.4-36.7); MEAN CELL VOLUME 94.4 fL (81.5-99.8); MEAN PLATELET VOLUME 9.6 fL (8.7-11.7); PLATELET CLUMPS FLAG 0 (0-99); PLATELET COUNT 188 10^3/uL (150-400); RED CELL DISTRIBUTION WIDTH 14.3 % (11.5-15.2)
[2016-06-12 04:36] LABS: ANION GAP 6 mEq/L (8-16); CALCIUM 8.5 mg/dL (8.5-10.4); CARBON DIOXIDE 26 mEq/l (22-31); CHLORIDE 102 mEq/L (97-110); CREATININE 0.9 mg/dL (0.7-1.3); GLOMERULAR FILTRATION RATE > 60; GLUCOSE 106 mg/dL (70-100); POTASSIUM 4.9 mEq/L (3.5-5.2); SODIUM 134 mEq/L (134-144)
[2016-06-12] MEDS: CARVEDILOL 6.25 MG TAB PO SCH ×3 (08:35→19:41)
[2016-06-12] MEDS: SOTALOL HCL 80 MG TAB PO SCH ×2 (08:35→19:42)
[2016-06-12] MEDS: MEXILETINE HCL 150 MG CAP PO SCH ×2 (08:36→19:41)
[2016-06-12] MEDS: OMEGA-3 FATTY ACIDS 1,000 MG CAP PO SCH ×2 (08:37→19:53)
--- NOTE | 2016-06-12 10:04 | PDCARPN ---
Cardiology Progress Note Chief Complaint: Patient is an 85-year-old male with a complex cardiac history which includes CAD with prior CABG, ischemic cardiomyopathy with severely reduced left ventricular systolic function, s/p biventricular pacemaker/ICD, paroxysmal atrial fibrillation, and ventricular tachycardia. Assessment/Plan: Assessment: At the present time he appears to be stable. He has no indication of volume overload clinically. His weight, however, is up several kg. He has not received any of his diuretics. Plan: Will plan to restart his Aldactone and Lasix. We will continue to follow him during his hospitalization here. His systemic anticoagulation can be restarted when this is thought appropriate with respect to his recent procedure. I did order follow-up electrolytes for the morning. We will continue to follow him on telemetry. There are considerations to potentially discharging him later today. 06/12/16 10:05 Subjective: The patient was seen and examined. His chart was reviewed. This is my 1st day seen the patient. I am covering for the weekend. He states that he is feeling well. He has no shortness of breath. He denies chest discomfort. He does feel a little bit weak and is experiencing mild right flank pain especially with deep inspiration. He has not had any hemodynamic instability. Reviewed/Discussed With: other ( Nurse) Objective: Vital Signs (8 Hrs) Temp Pulse Resp BP Pulse Ox 06/12/16 08:00 36.4 C 86 18 106/54 L 94 06/12/16 04:00 70 16 118/65 96 Intake/Output (24 Hrs) 06/11/16 06/12/16 06/13/16 05:59 05:59 05:59 Intake Total 450 1925 Output Total 875 1100 Balance -425 825 Intake: Oral (ml) 450 900 IV Infused (ml) 1025 Ns 1,000 ml @ 100 mls/hr 1025 IV CONT MICHEAL Rx#: [id number] Output: Urine (ml) 875 1100 Urinal 875 1100 Other: Weight 80.739 kg 81.148 kg 85 kg Intake Quantity Yes Sufficient Number of Voids Diapers/Briefs 2 Urinal 4 Number of Stools Urinal 4 1 Result Diagrams: 06/12/16 04:10 06/12/16 04:10 Telemetry: Atrial fibrillation. Ventricular pacing. - Physical Exam Constitutional: WDWN, healthy appearing Ears, Nose, Mouth, Throat: moist mucous membranes Cardiovascular: regular rate and rhythm, other (No edema.), No no murmurs, No no rubs, No no gallops, No jugular vein distention Peripheral Pulses: 1+: carotid (R), carotid (L) Respiratory: clear to auscultate bilat, no crackles, no wheezes Neurologic: AAOx3 Psychiatric: cooperative, interactive ICD10 Worksheet Patient Problems: Problems Problem Status Onset Hepatoma Acute Abdominal pain, epigastric Acute Afib Acute CHF (congestive heart failure) Acute Chest pain Acute Coronary artery disease Acute Hyperkalemia Acute Ischemic cardiomyopathy Acute Palpitations Acute Urinary tract infection Acute Ventricular tachycardia Acute Ventricular tachycardia by electrocardiogram Acute
[2016-06-12] MEDS: SPIRONOLACTONE 25 MG TAB PO SCH ×2 (10:07→19:42)
--- NOTE | 2016-06-12 10:31 | SOAPPROG ---
SOAP Progress Note Assessment/Plan: Assessment: 1. Hepatic mass with bleed; stable after embolization at IR yesterday(biopsies pending). 2. Post-hemorrhagic anemia; stable. 3. RUQ abdominal pain secondary to recent IR embolization and bx of liver mass. 4. Nausea secondary to pain meds. 5. IHD and fluid overload, under management per Cardiology. Plan: Await liver mass path. Rishi Ibrahim MD 06/12/16 10:32 Subjective: CC: Liver mass with bleed. Interval HPI: Patient resting in bed. C/O some dull RUQ pain since IR embolization of Liver mass which has been controlled with IV pain meds. Also c/ o nausea secondary to pain meds, which is improving. Objective: Vital Signs Temp Pulse Resp BP Pulse Ox 36.4 C 86 18 106/54 L 94 06/12/16 08:00 06/12/16 08:00 06/12/16 08:00 06/12/16 08:00 06/12/16 08:00 Laboratory Results 06/12/16 04:10 06/12/16 04:10 06/11/16 06/12/16 06/13/16 05:59 05:59 05:59 Intake Total 450 1925 Output Total 875 1100 Balance -425 825 PT 17.4 SEC (12.0-15.0) H 06/10/16 12:53 INR 1.43 (0.83-1.16) H 06/10/16 12:53 Physical Exam - Physical Exam General Appearance: alert, no apparent distress Respiratory: lungs clear, normal breath sounds Cardiac/Chest: normal peripheral pulses, regular rate, rhythm Abdomen: normal bowel sounds (mildly tender in RUQ.), soft Skin: normal color, warm/dry Neuro/Psych: alert, normal mood/affect, oriented x 3 ICD10 Worksheet Patient Problems: Problems Problem Status Onset Hepatoma Acute Abdominal pain, epigastric Acute Afib Acute CHF (congestive heart failure) Acute Chest pain Acute Coronary artery disease Acute Hyperkalemia Acute Ischemic cardiomyopathy Acute Palpitations Acute Urinary tract infection Acute Ventricular tachycardia Acute Ventricular tachycardia by electrocardiogram Acute
--- NOTE | 2016-06-12 11:47 | PDINTPN ---
Childcare Aide Progress Note Assessment/Plan: Assessment/plan: 85 M with history of afib, VT and pacer, admitted with bleeding hepatoma and soft BP. Underwent embolization and biopsy 06/11. * Hepatoma- final path pending. No evidence of further bleeding with Hct stable at 36.8. * afib- rate controlled currently. * hypotension- stable and resumed outpatient meds without issues. * LFTs- will need repeat in AM * Nausea- possibly related to dilaudid- change to po and observe. Treated with phenergen * Subjective: feels ok s/p embolization. C/O nausea without emesis. Pain controlled with dilaudid Objective: Vital Signs Temp Pulse Resp BP Pulse Ox 36.4 C 86 18 106/54 L 94 06/12/16 08:00 06/12/16 08:00 06/12/16 08:00 06/12/16 08:00 06/12/16 08:00 Laboratory Results 06/12/16 04:10 06/12/16 04:10 06/11/16 06/12/16 06/13/16 05:59 05:59 05:59 Intake Total 450 1925 Output Total 875 1100 Balance -425 825 PT 17.4 SEC (12.0-15.0) H 06/10/16 12:53 INR 1.43 (0.83-1.16) H 06/10/16 12:53 Physical Exam - Physical Exam General Appearance: alert, no apparent distress EENT: PERRL/EOMI Neck: supple Respiratory: lungs clear, normal breath sounds, No respiratory distress Cardiac/Chest: regular rate, rhythm, No edema Abdomen: non-tender, soft, No distended, No guarding, No rebound Skin: normal color, No rash Lymphatic: no adenopathy Extremities: non-tender, No pedal edema Neuro/Psych: alert, normal mood/affect, oriented x 3 ICD10 Worksheet Patient Problems: Problems Problem Status Onset Hepatoma Acute Abdominal pain, epigastric Acute Afib Acute CHF (congestive heart failure) Acute Chest pain Acute Coronary artery disease Acute Hyperkalemia Acute Ischemic cardiomyopathy Acute Palpitations Acute Urinary tract infection Acute Ventricular tachycardia Acute Ventricular tachycardia by electrocardiogram Acute
[2016-06-12] MEDS ORDERED: FUROSEMIDE 80 MG TAB PO SCH (12:00)
[2016-06-12] MEDS: PROMETHAZINE HCL 25 MG/ML INJ IVP PRN (12:22)
[2016-06-12] MEDS: ISOSORBIDE MONONITRATE 30 MG TAB.SR PO SCH (12:23)
[2016-06-12] MEDS: MULTIVITAMINS 1 EACH TAB PO SCH (12:23)
[2016-06-12] MEDS: LOSARTAN POTASSIUM 25 MG TAB PO SCH (12:25)
--- NOTE | 2016-06-12 12:35 | HOSPPROG ---
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, path pending - was bleeding, H/H stable now # ischemic cardiomyopathy: EF 35% - aldactone, coreg, losartan, lasix # a fib: with hx of multiple prior ablations, anti-coagulated as above, will hold eliquis for now and monitor on tele # CAD s/p CABG - coreg, loasartan, sotolol, mexiletine # hx VT - ICD # pain control - stop INVENTORY CHECKER, cont dialudid IV, oxy PO # nausea - phenergan # hx of: malignant melanoma, HTN, HLD, BPH # recent recurrent UTI/prostatitis: followed by urology, had been on macrobid for a prolonged period of time which is now listed as an allergy. Last urine culture showing > 100K or normal urogenital bonny on 05/31. No current sxs # DNR # dispo - med surg; needs to tolerate PO prior to dc ## new pt to me chart reviewed discussed with Dr Andres on ICU rounds Subjective: Complains of nausea, difficulty taking p.o., right upper quadrant abdominal pain Objective: Vital Signs Temp Pulse Resp BP Pulse Ox 36.4 C 86 18 106/54 L 94 06/12/16 08:00 06/12/16 08:00 06/12/16 08:00 06/12/16 08:00 06/12/16 08:00 Laboratory Results 06/12/16 04:10 06/12/16 04:10 06/11/16 06/12/16 06/13/16 05:59 05:59 05:59 Intake Total 450 1925 Output Total 875 1100 Balance -425 825 PT 17.4 SEC (12.0-15.0) H 06/10/16 12:53 INR 1.43 (0.83-1.16) H 06/10/16 12:53 Vitals reviewed Pleasant, no acute distress Regular rate and rhythm, no murmurs rubs or gallops No respiratory distress, lungs clear to auscultation bilaterally, no wheezes or rales Abdomen soft nontender, nondistended, no hepatosplenomegaly ICD10 Worksheet Patient Problems: Problems Problem Status Onset Abdominal pain, epigastric Acute Afib Acute Ischemic cardiomyopathy Acute Coronary artery disease Acute Ventricular tachycardia Acute Palpitations Acute Chest pain Acute Ventricular tachycardia by electrocardiogram Acute Hyperkalemia Acute Urinary tract infection Acute CHF (congestive heart failure) Acute Hepatoma Acute
[2016-06-12] MEDS: ACETAMINOPHEN 325 MG TAB PO PRN (23:13)
[2016-06-13 04:58] LABS: % IMMATURE GRANULYOCYTES 0.5 % (0.0-1.1); ABSOLUTE IMMATURE GRANULOCYTES 0.04 10^3/uL (0.00-0.10); ADD DIFF? NO; ADD MORPH? NO; ADD SCAN? NO; ATYPICAL LYMPHOCYTE FLAG 0 (0-99); FRAGMENT RBC FLAG 0 (0-99); HEMATOCRIT 32.7 % (40.0-51.0); HEMOGLOBIN 10.8 g/dL (13.7-17.5); LEFT SHIFT FLG 0 (0-99); LIPEMIA HEMOLYSIS FLAG 80 (0-99); MEAN CELL HEMOGLOBIN 31.1 pg (27.9-34.1); MEAN CELL VOLUME 94.2 fL (81.5-99.8); MEAN PLATELET VOLUME 9.9 fL (8.7-11.7); PLATELET CLUMPS FLAG 10 (0-99); PLATELET COUNT 111 10^3/uL (150-400); RED BLOOD CELL COUNT 3.47 10^6/uL (4.40-6.38); RED CELL DISTRIBUTION WIDTH 14.3 % (11.5-15.2)
[2016-06-13 05:14] LABS: ANION GAP 4 mEq/L (8-16); CALCIUM 8.1 mg/dL (8.5-10.4); CARBON DIOXIDE 27 mEq/l (22-31); CHLORIDE 102 mEq/L (97-110); CREATININE 1.2 mg/dL (0.7-1.3); GLOMERULAR FILTRATION RATE 58; GLUCOSE 133 mg/dL (70-100); POTASSIUM 4.7 mEq/L (3.5-5.2); SODIUM 133 mEq/L (134-144)
[2016-06-13] MEDS: OMEGA-3 FATTY ACIDS 1,000 MG CAP PO SCH ×3 (08:20→20:43)
[2016-06-13] MEDS: MEXILETINE HCL 150 MG CAP PO SCH ×3 (08:20→21:10)
[2016-06-13] MEDS: SOTALOL HCL 80 MG TAB PO SCH ×2 (08:21→21:10)
[2016-06-13] MEDS: FUROSEMIDE 40 MG TAB PO SCH (08:21)
[2016-06-13] MEDS: SPIRONOLACTONE 25 MG TAB PO SCH ×2 (08:22→19:13)
[2016-06-13] MEDS: CARVEDILOL 6.25 MG TAB PO SCH ×3 (08:22→19:13)
[2016-06-13] MEDS: PANTOPRAZOLE SODIUM 40 MG TAB PO PRN (08:26)
[2016-06-13] MEDS ORDERED: NS 500 ML IV ONE (09:28)
--- NOTE | 2016-06-13 09:48 | PDINTPN ---
[facility] Progress Note Assessment/Plan: Assessment/plan: 85 M with history of afib, VT and pacer, admitted with bleeding hepatoma and soft BP. Underwent embolization and biopsy 06/11. * Hepatoma- final path pending. No evidence of further bleeding with Hct stable. * afib- rate controlled currently. * hypotension- Resolved. Stable and resumed outpatient meds without issues. * LFTs- repeat pending * Nausea- Improved. Eating breakfast. Treated with phenergen * OK for SNF versus home care Subjective: Feels better- less nausea, no emesis, but still with poor appetite. Not sure he can manage at home per patient. Objective: Vital Signs Temp Pulse Resp BP Pulse Ox 36.7 C 70 92 H 138/123 H 98 06/13/16 08:00 06/13/16 08:21 06/13/16 08:00 06/13/16 08:22 06/13/16 04:00 Laboratory Results 06/13/16 04:40 06/13/16 04:40 06/12/16 06/13/16 06/14/16 05:59 05:59 05:59 Intake Total 1925 2093 Output Total 1100 535 Balance 825 1558 PT 17.4 SEC (12.0-15.0) H 06/10/16 12:53 INR 1.43 (0.83-1.16) H 06/10/16 12:53 Physical Exam - Physical Exam General Appearance: alert, no apparent distress EENT: PERRL/EOMI Neck: supple Respiratory: lungs clear, normal breath sounds, No respiratory distress Cardiac/Chest: normal peripheral pulses, regular rate, rhythm, No edema Abdomen: non-tender, soft, No distended Skin: normal color, warm/dry, No rash Lymphatic: no adenopathy Extremities: No pedal edema Neuro/Psych: alert, normal mood/affect, oriented x 3 ICD10 Worksheet Patient Problems: Problems Problem Status Onset Hepatoma Acute Abdominal pain, epigastric Acute Afib Acute CHF (congestive heart failure) Acute Chest pain Acute Coronary artery disease Acute Hyperkalemia Acute Ischemic cardiomyopathy Acute Palpitations Acute Urinary tract infection Acute Ventricular tachycardia Acute Ventricular tachycardia by electrocardiogram Acute
[2016-06-13] MEDS: PROMETHAZINE HCL 25 MG/ML INJ IVP PRN (10:38)
--- NOTE | 2016-06-13 11:07 | SOAPPROG ---
[facility] Progress Note Assessment/Plan: Assessment: He appears stable at the present time with respect to his cardiovascular disease. Yesterday, his home medications were reinstituted. He denies any cardiovascular complaints. Plan: At this point, I think the patient can be discharged home on his current medications. He can follow up routinely as an outpatient with his primary rod welder Dr. Jackson. 06/13/16 11:07 Subjective: He states that he is feeling better today than he did yesterday. His appetite has improved. He did manage to have a little bit of breakfast. Notes that he is not short of breath. He denies chest discomfort. Objective: Vital Signs Temp Pulse Resp BP Pulse Ox 36.7 C 70 92 H 138/123 H 98 06/13/16 08:00 06/13/16 08:21 06/13/16 08:00 06/13/16 08:22 06/13/16 04:00 Laboratory Results 06/13/16 04:40 06/13/16 04:40 06/12/16 06/13/16 06/14/16 05:59 05:59 05:59 Intake Total 1925 2093 Output Total 1100 535 Balance 825 1558 PT 17.4 SEC (12.0-15.0) H 06/10/16 12:53 INR 1.43 (0.83-1.16) H 06/10/16 12:53 Physical Exam - Physical Exam General Appearance: WD/WN, no apparent distress Neck: non-tender, full range of motion Respiratory: lungs clear, normal breath sounds, crackles (At the bases that clear with deep inspiration) Cardiac/Chest: regular rate, rhythm, No edema, No gallop, No JVD Peripheral Pulses: 2+: carotid (R), carotid (L) ICD10 Worksheet Patient Problems: Problems Problem Status Onset Hepatoma Acute Abdominal pain, epigastric Acute Afib Acute CHF (congestive heart failure) Acute Chest pain Acute Coronary artery disease Acute Hyperkalemia Acute Ischemic cardiomyopathy Acute Palpitations Acute Urinary tract infection Acute Ventricular tachycardia Acute Ventricular tachycardia by electrocardiogram Acute
--- NOTE | 2016-06-13 11:23 | HOSPPROG ---
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, path pending - was bleeding, H/H stable now - will likely restart Eliquis soon # volume status: Despite markedly elevated BNP, appears clinically dry with hypotension, thirst, elevated SCr - he already received Lasix today - small bolus of normal saline # elevated SCr - follow tomorrow # mild hyponatremia - follow tomorrow # ischemic cardiomyopathy: EF 35% - aldactone, coreg, losartan, lasix (on hold for now) # a fib: with hx of multiple prior ablations, anti-coagulated as above, hold eliquis for now and monitor on tele # CAD s/p CABG - coreg, losartan, sotolol, mexiletine # hx VT - ICD # pain control - on PO narcotics, decrease as able # nausea - phenergan # hx of: malignant melanoma, HTN, HLD, BPH # recent recurrent UTI/prostatitis: followed by urology, had been on macrobid for a prolonged period of time which is now listed as an allergy. Last urine culture showing > 100K or normal urogenital bonny on 05/31. No current sxs # DNR # dispo - not ready for dc yet ## chart reviewed, including notes Subjective: Feels slightly stronger today; still has abdominal pain; still very weak; not taking much p.o. Objective: Vital Signs Temp Pulse Resp BP Pulse Ox 36.7 C 70 92 H 138/123 H 98 06/13/16 08:00 06/13/16 08:21 06/13/16 08:00 06/13/16 08:22 06/13/16 04:00 Laboratory Results 06/13/16 04:40 06/13/16 04:40 06/12/16 06/13/16 06/14/16 05:59 05:59 05:59 Intake Total 1925 2093 Output Total 1100 535 Balance 825 1558 PT 17.4 SEC (12.0-15.0) H 06/10/16 12:53 INR 1.43 (0.83-1.16) H 06/10/16 12:53 Vitals reviewed Pleasant, no acute distress, weak appearing Regular rate and rhythm, 1/6 systolic murmur, no rubs or gallops No respiratory distress, lungs clear to auscultation bilaterally, no wheezes or rales Abdomen soft nontender, nondistended, no hepatosplenomegaly ICD10 Worksheet Patient Problems: Problems Problem Status Onset Abdominal pain, epigastric Acute Afib Acute Ischemic cardiomyopathy Acute Coronary artery disease Acute Ventricular tachycardia Acute Palpitations Acute Chest pain Acute Ventricular tachycardia by electrocardiogram Acute Hyperkalemia Acute Urinary tract infection Acute CHF (congestive heart failure) Acute Hepatoma Acute
[2016-06-13] MEDS: LOSARTAN POTASSIUM 25 MG TAB PO SCH (11:52)
[2016-06-13] MEDS: ISOSORBIDE MONONITRATE 30 MG TAB.SR PO SCH (11:53)
[2016-06-13] MEDS: MULTIVITAMINS 1 EACH TAB PO SCH (11:53)
--- NOTE | 2016-06-13 13:18 | SOAPPROG ---
SOAP Progress Note Assessment/Plan: Assessment: 1. Hepatic mass with bleed; stable after embolization at IR yesterday(biopsies pending). 2. Post-hemorrhagic anemia; stable. 3. RUQ abdominal pain secondary to recent IR embolization and bx of liver mass. 4. Nausea secondary to pain meds but also present before admission; ? secondary to liver tumor. 5. IHD. Plan: Await liver mass path. I discussed medical condition and treatment plan with patient, , daughter and grand daughter, and patient's nurse in the patient' s room today. 20 minutes of counseling and education spent with total of 30 minute encounter(12:44-13:14). Rishi Ibrahim MD 06/13/16 13:14 Subjective: CC: Hepatic tumor with bleed. Interval HPI: Patient continues to c/o RUQ dull pain and nausea albeit improved from yesterday. Appetite poor but attempting to eat soft diet today. Objective: Vital Signs Temp Pulse Resp BP Pulse Ox 36.7 C 70 92 H 138/123 H 98 06/13/16 08:00 06/13/16 08:21 06/13/16 08:00 06/13/16 08:22 06/13/16 04:00 Laboratory Results 06/13/16 04:40 06/13/16 04:40 06/12/16 06/13/16 06/14/16 05:59 05:59 05:59 Intake Total 1925 2093 Output Total 1100 535 Balance 825 1558 PT 17.4 SEC (12.0-15.0) H 06/10/16 12:53 INR 1.43 (0.83-1.16) H 06/10/16 12:53 Physical Exam - Physical Exam General Appearance: alert (but somewhat sleepy.), no apparent distress Respiratory: lungs clear, normal breath sounds Cardiac/Chest: normal peripheral pulses, regular rate, rhythm Abdomen: normal bowel sounds (tender in RUQ), soft Skin: normal color, warm/dry Neuro/Psych: normal mood/affect, oriented x 3 ICD10 Worksheet Patient Problems: Problems Problem Status Onset Hepatoma Acute Abdominal pain, epigastric Acute Afib Acute CHF (congestive heart failure) Acute Chest pain Acute Coronary artery disease Acute Hyperkalemia Acute Ischemic cardiomyopathy Acute Palpitations Acute Urinary tract infection Acute Ventricular tachycardia Acute Ventricular tachycardia by electrocardiogram Acute
[2016-06-13] MEDS: ACETAMINOPHEN 325 MG TAB PO PRN (16:07)
[2016-06-13] MEDS ORDERED: NS 250 ML IV ONE (19:30)
[2016-06-13] MEDS ORDERED: NS BOLUS 500 ML (Wide open) IV ONE (21:30)
[2016-06-13 22:35] LABS: ALBUMIN 2.5 g/dL (3.5-5.0); BILIRUBIN,TOTAL 2.1 mg/dL (0.1-1.4); BILIRUBIN-UNCONJUGATED 1.1 mg/dL (0.0-1.1); TOTAL PROTEIN 5.9 g/dL (6.3-8.2)
[2016-06-14] MEDS: SOTALOL HCL 80 MG TAB PO SCH ×3 (00:03→20:02)
[2016-06-14] MEDS: ACETAMINOPHEN 325 MG TAB PO PRN ×3 (00:05→21:39)
[2016-06-14] MEDS: OMEGA-3 FATTY ACIDS 1,000 MG CAP PO SCH ×3 (00:07→20:01)
[2016-06-14 05:06] LABS: % IMMATURE GRANULYOCYTES 0.8 % (0.0-1.1); ABSOLUTE IMMATURE GRANULOCYTES 0.05 10^3/uL (0.00-0.10); ADD DIFF? NO; ADD MORPH? NO; ADD SCAN? NO; ATYPICAL LYMPHOCYTE FLAG 0 (0-99); FRAGMENT RBC FLAG 0 (0-99); HEMATOCRIT 30.6 % (40.0-51.0); HEMOGLOBIN 10.1 g/dL (13.7-17.5); LEFT SHIFT FLG 0 (0-99); LIPEMIA HEMOLYSIS FLAG 80 (0-99); MEAN CELL HEMOGLOBIN 30.1 pg (27.9-34.1); MEAN CELL VOLUME 91.1 fL (81.5-99.8); MEAN PLATELET VOLUME 10.2 fL (8.7-11.7); PLATELET CLUMPS FLAG 0 (0-99); PLATELET COUNT 98 10^3/uL (150-400); RED BLOOD CELL COUNT 3.36 10^6/uL (4.40-6.38); RED CELL DISTRIBUTION WIDTH 14.3 % (11.5-15.2)
[2016-06-14 05:26] LABS: ANION GAP 6 mEq/L (8-16); CALCIUM 7.7 mg/dL (8.5-10.4); CARBON DIOXIDE 24 mEq/l (22-31); CHLORIDE 101 mEq/L (97-110); CREATININE 1.1 mg/dL (0.7-1.3); GLOMERULAR FILTRATION RATE > 60; GLUCOSE 93 mg/dL (70-100); POTASSIUM 4.1 mEq/L (3.5-5.2); SODIUM 131 mEq/L (134-144)
[2016-06-14 06:28] LABS: ALBUMIN 2.6 g/dL (3.5-5.0); TOTAL PROTEIN 6.1 g/dL (6.3-8.2)
[2016-06-14] MEDS: CARVEDILOL 6.25 MG TAB PO SCH ×4 (08:30→21:38)
[2016-06-14] MEDS: ISOSORBIDE MONONITRATE 30 MG TAB.SR PO SCH (08:41)
[2016-06-14] MEDS: LOSARTAN POTASSIUM 25 MG TAB PO SCH (08:41)
[2016-06-14] MEDS: SPIRONOLACTONE 25 MG TAB PO SCH ×2 (08:42→20:05)
[2016-06-14] MEDS ORDERED: POTASSIUM CL 20 MEQ TAB PO ONE (10:46)
[2016-06-14] MEDS ORDERED: NS 250 ML IV ONE (10:48)
--- NOTE | 2016-06-14 11:09 | HOSPPROG ---
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, path pending - was bleeding, H/H stable now - will need to restart Eliquis soon - f/u path # volume status: I still think is clinically dry although his BNP is still elevated - small bolus of normal saline - no diuretics today - will discuss with Cardiology # hypotension - getting fluids, hope to be able to give him his cardiac meds today # ischemic cardiomyopathy: EF 35% - aldactone, coreg, losartan, lasix (on hold for now) # a fib: with hx of multiple prior ablations, anti-coagulated as above, hold eliquis for now and monitor on tele # CAD s/p CABG - coreg, losartan, sotolol, mexiletine (hold) # hx VT - ICD - potassium should be around 5, getting K today # pain control - on PO narcotics, decrease as able # nausea - phenergan # hx of: malignant melanoma, HTN, HLD, BPH # recent recurrent UTI/prostatitis: followed by urology, had been on macrobid for a prolonged period of time which is now listed as an allergy. Last urine culture showing > 100K or normal urogenital bonny on 05/31. No current sxs # DNR # dispo - not ready for dc yet ## chart reviewed, including notes Subjective: Still feels very weak, not eating well Objective: Vital Signs Temp Pulse Resp BP Pulse Ox 36.8 C 71 20 100/52 L 99 06/14/16 08:00 06/14/16 09:07 06/14/16 09:07 06/14/16 09:07 06/14/16 09:07 Laboratory Results 06/14/16 04:45 06/14/16 04:45 06/13/16 06/14/16 06/15/16 05:59 05:59 05:59 Intake Total 2093 2943 Output Total 535 275 Balance 1558 2668 PT 17.4 SEC (12.0-15.0) H 06/10/16 12:53 INR 1.43 (0.83-1.16) H 06/10/16 12:53 Vitals reviewed Pleasant, no acute distress Regular rate and rhythm, 2/6 systolic murmur, no rubs or gallops No respiratory distress, lungs clear to auscultation bilaterally, no wheezes or rales Abdomen soft nontender, nondistended, no hepatosplenomegaly ICD10 Worksheet Patient Problems: Problems Problem Status Onset Abdominal pain, epigastric Acute Afib Acute Ischemic cardiomyopathy Acute Coronary artery disease Acute Ventricular tachycardia Acute Palpitations Acute Chest pain Acute Ventricular tachycardia by electrocardiogram Acute Hyperkalemia Acute Urinary tract infection Acute CHF (congestive heart failure) Acute Hepatoma Acute
[2016-06-14] MEDS: MEXILETINE HCL 150 MG CAP PO SCH ×3 (12:42→18:33)
--- NOTE | 2016-06-14 12:58 | SOAPPROG ---
SOAP Progress Note Assessment/Plan: Assessment: 1. Hepatic mass with bleed; stable after embolization at IR yesterday(PATH pending today). 2. Post-hemorrhagic anemia; stable. 3. RUQ abdominal pain secondary to recent IR embolization and bx of liver mass; improved. 4. Nausea secondary to pain meds but also present before admission; ? secondary to liver tumor; resolved 5. IHD. Plan: Await liver mass path. Rishi Ibrahim MD 06/14/16 12:54 Subjective: CC: Liver mass with bleed. Interval HPI: Nausea resolved albeith some bloating wityh meals. Minor RUQ pain with deep breath. Energy level much better today. Objective: Vital Signs Temp Pulse Resp BP Pulse Ox 36.8 C 65 20 95/42 L 99 06/14/16 08:00 06/14/16 12:43 06/14/16 09:07 06/14/16 12:43 06/14/16 09:07 Laboratory Results 06/14/16 04:45 06/14/16 04:45 06/13/16 06/14/16 06/15/16 05:59 05:59 05:59 Intake Total 2093 2943 Output Total 535 275 Balance 1558 2668 PT 17.4 SEC (12.0-15.0) H 06/10/16 12:53 INR 1.43 (0.83-1.16) H 06/10/16 12:53 Physical Exam - Physical Exam General Appearance: alert, no apparent distress Respiratory: lungs clear, normal breath sounds Cardiac/Chest: normal peripheral pulses, regular rate, rhythm Abdomen: normal bowel sounds, non-tender, soft Neuro/Psych: alert, normal mood/affect, oriented x 3 ICD10 Worksheet Patient Problems: Problems Problem Status Onset Hepatoma Acute Abdominal pain, epigastric Acute Afib Acute CHF (congestive heart failure) Acute Chest pain Acute Coronary artery disease Acute Hyperkalemia Acute Ischemic cardiomyopathy Acute Palpitations Acute Urinary tract infection Acute Ventricular tachycardia Acute Ventricular tachycardia by electrocardiogram Acute
--- NOTE | 2016-06-14 15:27 | PDCARPN ---
Cardiology Progress Note Chief Complaint: Patient reports RUQ pain, but getting adequate pain control Assessment/Plan: Assessment: 85-year-old male with known history CAD with prior CABG, ischemic cardiomyopathy with severely reduced LV systolic function, status post biventricular AICD, permanent atrial fibrillation, ventricular tachycardia. Admitted to the hospital June 10 with bleeding into a liver mass and hypotension. IR procedure done on 06/11/2016 with biopsy of liver and embolization. H&H has maintained stable. Patient does report right-sided pain. He is in atrial fibrillation, but well rate controlled. Denies of any chest pain or shortness of breath. Has been noted to be hypotensive over last 16 hours, requiring IV fluid boluses (a total of around 1250 mL). No ventricular arrhythmias noted on continuous telemetry. Denies of any therapeutic shocks from his AICD. H&H this morning was 10.1 and 30.6. Noted to be mildly hyponatremic with sodium at 131.. Potassium at 4.1. ProBNP last evening was 12,400, repeated today was 8880. Or Lasix has been placed on hold due to hypotension. Patient has had not had his a.m. dose of carvedilol, sotalol or mexiletine. Plan: 1. Hypotension: Patient noted to have systolic blood pressures down in the 70s , requiring several IV boluses of saline (1200 mL.). At this time, BP is been stable. Agree with holding oral Lasix, will also hold losartan and Imdur doses. Patient's most important cardiac meds should be sotalol, mexiletine an carvedilol due to history of VT. 2. CAD: Denies of any chest pain or symptoms suggesting of ischemia. Current anti-platelet and full anticoagulation on hold. Carvedilol dose has been held, have asked that it be resumed. Discussed with Dr. Tse, patient should receive carvedilol as long as systolic blood pressure remains greater than 95 mm Hg. Will hold his Imdur as above. Patient is statin intolerant. 3. Ischemic cardiomyopathy: Most recent EF was 35-40% (echocardiogram 2014). Elevated BNP, IV diuresis held due to hypotension. Have also held losartan. Would like him to continue on carvedilol, and if can tolerate Aldactone. Bi V pace. With recent hypotensive events, I would like him get an echocardiogram done to evaluate pump function 4. Atrial fibrillation: Well rate controlled at current time. Patient is noted to be better rate control with potassium level is closer to 5.0, hospitalist services as ordered potassium replacement. Continue on carvedilol, and sotalol as mentioned above. Anticoagulation on hold due to bleed. 5. Bleeding and liver mass: Status post embolization status post embolization in Interventional Radiology. H&H has been stable. Pathology pending. 6. VT: History of sustained VT, AICD implantation, no therapeutic shocks. Would like him to continue on carvedilol, sotalol, and mexiletine. Cont to monitor K. 06/14/16 15:26 Subjective: Patient denies of any chest pressure, pain, lightheadedness, palpitations, or therapeutic shocks from his AICD. Does admit mild shortness of breath. Reviewed/Discussed With: multidisciplinary team (Patient [employer]), other (Dr Tse ) Objective: Vital Signs (8 Hrs) Temp Pulse Resp BP Pulse Ox 06/14/16 14:00 70 19 103/48 L 99 06/14/16 13:00 72 20 96/39 L 97 06/14/16 12:43 65 95/42 L 06/14/16 12:30 71 21 H 95/42 L 97 06/14/16 12:00 71 19 110/44 L 93 06/14/16 11:30 36.8 C 71 19 116/46 L 92 06/14/16 10:00 71 20 83/41 L 93 06/14/16 09:07 71 20 100/52 L 99 06/14/16 08:00 36.8 C 70 19 91/49 L 98 Intake/Output (24 Hrs) 06/13/16 06/14/16 06/15/16 05:59 05:59 05:59 Intake Total 2093 2943 Output Total 535 275 Balance 1558 2668 Intake: Oral (ml) 1480 1240 IV Intake (ml) 1203 IV Infused (ml) 613 500 Ns 1,000 ml @ 100 mls/hr 613 IV CONT MICHEAL Rx#: [id number] Ns 500 ml @ 1500 mls/hr 500 IV ONCE ONE Rx#: [id number] Output: Urine (ml) 535 275 Urinal 535 275 Other: Weight 84.5 kg 90.6 kg Output Comment Toilet not observed Number of Voids Diapers/Briefs 2 1 Toilet 1 3 Number of Stools Toilet 1 3 Result Diagrams: 06/14/16 04:45 06/14/16 04:45 - Physical Exam Constitutional: no apparent distress Ears, Nose, Mouth, Throat: moist mucous membranes Cardiovascular: no rubs, no gallops, irregularly irregular (AFib with ventricular paced beats. Rate within normal limits), pulses symmetric bilat, No no murmurs (1-2/6 systolic murmur noted along left sternal border.), No jugular vein distention, No carotid bruit Peripheral Pulses: 1+: dorsalis-pedis (R), dorsalis-pedis (L), 2+: carotid (R), carotid (L) Respiratory: other (Clear but diminished in bases bilateral, no rhonchi, rales, or wheezing noted.) Gastrointestinal: normoactive bowel sounds Skin: warm, No no edema (+1 to 2 peripheral edema bilateral lower extremities) Neurologic: AAOx3 Psychiatric: cooperative, interactive, following commands ICD10 Worksheet Patient Problems: Problems Problem Status Onset Abdominal pain, epigastric Acute Afib Acute Ischemic cardiomyopathy Acute Coronary artery disease Acute Ventricular tachycardia Acute Palpitations Acute Chest pain Acute Ventricular tachycardia by electrocardiogram Acute Hyperkalemia Acute Urinary tract infection Acute CHF (congestive heart failure) Acute Hepatoma Acute
[2016-06-14 16:18] LABS: POTASSIUM 4.9 mEq/L (3.5-5.2)
[2016-06-14] MEDS: MULTIVITAMINS 1 EACH TAB PO SCH (16:48)
--- NOTE | 2016-06-14 16:59 | ECHO ---
[id number] + + [address] : : [place] [address] : : [phone] + Adult Echocardiographic Report + --+ :Name: Alberto PATEL Date: 06/14/2016 04:12 PM : : Hospital Admission Number: [id number] Location: 2 44: :: 1930 Gender: Male Height: 72 in : :Age: 85 yrs Race: WH Weight: 199 lb : :Reason For Study: Eval LV Fx : : BSA: 2.1 meters2 : :History: ICM, hypotension : + --+ MMode/2D Measurements \T\ Calculations IVSd: 1.3 cm LVIDd: 5.3 cm FS: 12.7 % Ao root diam: LVPWd: 1.4 cm LVIDs: 4.7 cm EDV(Teich): 4.0 cm 138.3 ml ACS: 1.8 cm ESV(Teich): LA dimension: 100.8 ml 4.8 cm EF(Teich): 27.1 % LVOT diam: 2.1 cmLVLd ap4: 9.2 cm SV(MOD-sp4): LVOT area: EDV(MOD-sp4): 74.0 ml 3.5 cm2 206.0 ml LVLs ap4: 8.7 cm ESV(MOD-sp4): 132.0 ml EF(MOD-sp4): 35.9 % Normal Measurement Values: + + :LVIDd (3.5-5.7cm) IVSd (0.6-1.1cm) LVPWd (0.6-1.1cm) Aortic Root (2.0-3.7cm)Left Atrium (1.5-4.0cm): :LV Vol(d) (76-115ml) LV Vol(s) (29-48ml) Ejec Fraction (50-65%)PV Sixto (0.6- 1.2m/s) TV Sixto (0.4-1.0m/s) : :MV E Sixto (0.8-1.0m/s)MV A Sixto (0.3-1.0m/s)LVOT Sixto (0.7-1.2m/s) Asc Ao Sixto ( 0.9-1.8m/s) : + + Doppler Measurements \T\ Calculations MV E max sixto: MV V2 mean: Ao V2 max: AI max sixto: 127.8 cm/sec 275.0 cm/sec 199.5 cm/sec 328.5 cm/sec MV A max sixto: MV mean PG: Ao max PG: AI max P.6 cm/sec 35.0 mmHg 15.9 mmHg 43.2 mmHg MV E/A: 3.8 MV V2 VTI: Ao mean P.0 cm 8.9 mmHg MVA(VTI): 0.56 cm2 Ao V2 mean: 139.4 cm/sec Ao V2 VTI: 40.7 cm JASPREET(I,D): 1.7 cm2 JASPREET(V,D): 1.6 cm2 LV V1 max: MR max sixto: SV(LVOT): 67.6 ml PA V2 max: 91.3 cm/sec 327.1 cm/sec 99.1 cm/sec LV V1 max PG: MR max PG: PA max P.3 mmHg 42.8 mmHg 3.9 mmHg LV V1 mean P.0 mmHg LV V1 mean: 65.2 cm/sec LV V1 VTI: 19.5 cm PI end-d sixto: TR max sixto: 150.7 cm/sec 333.9 cm/sec TR max P.6 mmHg RAP systole: 5.0 mmHg RVSP(TR): 49.6 mmHg Left Ventricle The left ventricle is normal in size. There is mild concentric left ventricular hypertrophy. There is Doppler evidence for diastolic dysfunction. Ejection Fraction = 35%. There is inferior and inferolateral hypokinesis. Right Ventricle There is a pacemaker lead in the right ventricle. The right ventricle is moderately dilated. Atria The left atrium is severely dilated. The right atrium is moderate to severely dilated. Mitral Valve The mitral valve is normal. There is no mitral valve stenosis. There is mild mitral regurgitation. Tricuspid Valve There is mild tricuspid regurgitation. Right ventricular systolic pressure is 50mmHg. There is Doppler evidence for moderate pulmonary hypertension. Aortic Valve Mild-Moderate Aortic Valve Calcification. There is no aortic stenosis. Moderate aortic regurgitation. Pulmonic Valve The pulmonic valve is normal in structure and function. Mild pulmonic valvular regurgitation. Great Vessels The aortic root is normal size. Pericardium/Pleural There is no pericardial effusion. Conclusion A complete two-dimensional transthoracic echocardiogram was performed (2D, M-mode, Doppler and color flow Doppler). There is mild concentric left ventricular hypertrophy. There is Doppler evidence for diastolic dysfunction. Ejection Fraction = 35%. There is inferior and inferolateral hypokinesis. There is a pacemaker lead in the right ventricle. The right ventricle is moderately dilated. The left atrium is severely dilated. The right atrium is moderate to severely dilated. There is mild mitral regurgitation. There is mild tricuspid regurgitation. Right ventricular systolic pressure is 50mmHg. There is Doppler evidence for moderate pulmonary hypertension. Mild-Moderate Aortic Valve Calcification Moderate aortic regurgitation. Mild pulmonic valvular regurgitation. The aortic root is normal size. There is no pericardial effusion. Compared with 03/24/2015, LV systolic function and wall motion are similar. Pulmonary HTN is now noted Final Reading Physician: Dr Dayanna Tse electronically signed on 06/14/2016 04:58 PM Ordering Physician: Girma Huggins Performed By: Justen Duckworth, DENISHACS
[2016-06-14] MEDS: MAGNESIUM HYDROXIDE 30 ML UDCUP PO PRN (18:35)
--- NOTE | 2016-06-15 03:15 | CPEKG ---
Heart Rate: 104 RR Interval: 577 P-R Interval: 176 QRSD Interval: 250 QT Interval: 412 QTC Interval: 542 P [place]: 151 QRS [place]: 164 T Wave [place]: -16 EKG Severity - ABNORMAL ECG - EKG Impression: VT Electronically Signed By: Macario Jensen 15-Jun-2016 09:10:37
[2016-06-15] MEDS ORDERED: CARVEDILOL 6.25 MG TAB PO ONE (03:23)
--- NOTE | 2016-06-15 03:49 | HOSPPROG ---
Hospitalist Progress Note Assessment/Plan: XC note / STAT team: Called to bedside for sustained V tac in 85 yo male with h/o CAD, ischemic cardiomyopathy, h/o VT and pacer/AICD. Tele revealed wide complex tachcardia, but rate only 105. 12 lead obtained, slow V tac. BP was 110/55. Pt denied CP , though felt weak and a bit SOB. Prior EKG's reviewed, which showed a paced rhythm. Not paced in current rhythm. His evening coreg dose was halved due to sbp >90. Pt was placed on monitor and pads placed, receiving O2, IV access confirmed. His pacemaker then seemed to capture and he returned to a paced rhythm. With sbp of 110, feel he can tolerate another 6.25 mg of coreg (the other half of his previously reduced dose). Discussed with cards. Will transfer to PCU. Though he had previously noted he would not want to be shocked, during this event, he stated he would want cardioversion if necessary. He is DNR however. He'll need his pacemaker interrogated in the morning. Objective: Vital Signs Temp Pulse Resp BP Pulse Ox 36.6 C 54 L 22 H 96/50 L 97 06/14/16 23:36 06/15/16 01:21 06/15/16 01:21 06/15/16 01:21 06/15/16 01:21 Laboratory Results 06/14/16 04:45 06/14/16 15:50 06/13/16 06/14/16 06/15/16 05:59 05:59 05:59 Intake Total 2093 2943 250 Output Total 535 275 450 Balance 1558 2668 -200 PT 17.4 SEC (12.0-15.0) H 06/10/16 12:53 INR 1.43 (0.83-1.16) H 06/10/16 12:53 - Physical Exam Constitutional: no apparent distress Cardiovascular: tachycardia Respiratory: no respiratory distress, clear to auscultation Skin: warm Neurologic: AAOx3 Psychiatric: interacting appropriately ICD10 Worksheet Patient Problems: Problems Problem Status Onset Hepatoma Acute Abdominal pain, epigastric Acute Afib Acute CHF (congestive heart failure) Acute Chest pain Acute Coronary artery disease Acute Hyperkalemia Acute Ischemic cardiomyopathy Acute Palpitations Acute Urinary tract infection Acute Ventricular tachycardia Acute Ventricular tachycardia by electrocardiogram Acute
[2016-06-15 06:06] LABS: % IMMATURE GRANULYOCYTES 0.6 % (0.0-1.1); ABSOLUTE IMMATURE GRANULOCYTES 0.04 10^3/uL (0.00-0.10); ADD DIFF? NO; ADD MORPH? NO; ADD SCAN? NO; ATYPICAL LYMPHOCYTE FLAG 0 (0-99); FRAGMENT RBC FLAG 0 (0-99); HEMATOCRIT 32.1 % (40.0-51.0); HEMOGLOBIN 10.3 g/dL (13.7-17.5); LEFT SHIFT FLG 0 (0-99); LIPEMIA HEMOLYSIS FLAG 80 (0-99); MEAN CELL HEMOGLOBIN 30.5 pg (27.9-34.1); MEAN CELL HEMOGLOBIN CONCENTR. 32.1 g/dL (32.4-36.7); MEAN PLATELET VOLUME 10.8 fL (8.7-11.7); PLATELET CLUMPS FLAG 30 (0-99); PLATELET COUNT 101 10^3/uL (150-400); RED BLOOD CELL COUNT 3.38 10^6/uL (4.40-6.38); RED CELL DISTRIBUTION WIDTH 14.6 % (11.5-15.2)
[2016-06-15 06:29] LABS: ANION GAP 6 mEq/L (8-16); CALCIUM 7.8 mg/dL (8.5-10.4); CARBON DIOXIDE 20 mEq/l (22-31); CHLORIDE 104 mEq/L (97-110); CREATININE 0.8 mg/dL (0.7-1.3); GLOMERULAR FILTRATION RATE > 60; GLUCOSE 86 mg/dL (70-100); POTASSIUM 5.1 mEq/L (3.5-5.2); SODIUM 130 mEq/L (134-144)
[2016-06-15] MEDS: SOTALOL HCL 80 MG TAB PO SCH ×2 (09:15→21:11)
[2016-06-15] MEDS: CARVEDILOL 6.25 MG TAB PO SCH ×4 (09:15→18:35)
[2016-06-15] MEDS: OMEGA-3 FATTY ACIDS 1,000 MG CAP PO SCH ×2 (09:15→21:12)
[2016-06-15] MEDS: SPIRONOLACTONE 25 MG TAB PO SCH ×2 (09:16→21:12)
[2016-06-15] MEDS ORDERED: FUROSEMIDE 40 MG/4 ML VIAL IVP ONE ×2 (09:16→16:38)
[2016-06-15] MEDS: MEXILETINE HCL 150 MG CAP PO SCH ×2 (09:35→18:35)
--- NOTE | 2016-06-15 10:38 | PDCARPN ---
Cardiology Progress Note Chief Complaint: Patient reports increased shortness of breath, and bloating feeling. Reports ongoing right upper quadrant pain. Assessment/Plan: Assessment: 85-year-old male with known history CAD with prior CABG, ischemic cardiomyopathy with severely reduced LV systolic function, status post biventricular AICD, permanent atrial fibrillation, ventricular tachycardia. Admitted to the hospital June 10 with bleeding into a liver mass and hypotension. IR procedure done on 06/11/2016 with biopsy of liver and embolization. He has been noted to be hypotensive since his procedure, requiring several fluid boluses, and holding his diuretic therapy, carvedilol, and losartan. ProBNP on 06/14/2016 months 8880. Echocardiogram done 06/14/2016 showed mild concentric LVH, diastolic dysfunction, EF of 35% with inferior and inferior lateral hypokinesis. RV was moderately dilated, LA is severely dilated , RA is moderately to severely dilated, mild MR, mild TR, RVSP estimated at 50 mm Hg, moderate AI, mild mild TR, no pericardial effusion. Patient transferred to same day surgery center last evening from ICU, noted to have a slow ventricular tachycardia at a rate of 105 BPM around 3:00 a.m, no LOC, no therapeutic shocks from his AICD. Note patient's evening dose of carvedilol had been held due to lower systolic blood pressure less than 90. Patient eventually converted back into AFib, and was given dose of carvedilol. Patient was transferred to PCU. Reviewing telemetry since arriving PCU, no further runs of VT. Patient denies of any therapeutic shocks from his AICD. Reviewing laboratory studies to day, H&H remained stable. Sodium has decreased down to 130, potassium is 5.1 this a.m., at 3:00 a.m., magnesium was 2.8. Reviewing patient's weight an I&Os, patient is probably 5 kilos heavier since hospital admission. P.o. diuresis has been on held due to hypotension. Patient noted to have JVD 7-8 cm above sternal notch at 45 degree angle. Patient denies of any chest pain or pressure suggesting of ischemia, but reports increased shortness of breath, and bloating sensation. Plan: 1. Hypotension: Improvement today. Will continue holding his losartan and Imdur at this time. 2. CAD: Denies of any chest pain or symptoms suggesting of ischemia. Current anti-platelet and full anticoagulation on hold due to bleed. Continue on Carvedilol. Will hold his Imdur as above. Patient is statin intolerant. 3. Ischemic cardiomyopathy: Echo yesterday showed EF 35%. Bi V pace. Continue on carvedilol and Aldactone as ordered. Losartan on hold due to hypotension. 4. Acute on chronic acute on chronic systolic heart failure: Patient's diuresis has been held for last few days due to hypotension, weight is up a minimum of 5 kilos from hospital admission. Patient noted JVD 7-8 cm, increased shortness of breath and bloating sensation. Will give him a dose of IV Lasix of 40 mg this a.m.. Repeat BMP and magnesium level at 2:00 p.m., with consideration of repeating Lasix dosage afterwards. 4. Atrial fibrillation: Well rate controlled at current time. Continue on carvedilol and sotalol. Anticoagulation on hold due to bleed. 5. Bleeding and liver mass: Status post embolization status post embolization in Interventional Radiology. H&H stable. Pathology pending. 6. VT: Patient with slow VT last evening, Coreg given, and spontaneously converted back to AFib. AICD implantation, no therapeutic shocks. Continue on carvedilol, sotalol, and mexiletine. Continue monitoring BMP and magnesium later this afternoon. Continue on cardiac monitoring Patient was examined with Dr. Tse. 06/15/16 10:39 Subjective: Patient reports increased shortness of breath at rest, bloating sensation. Denies of any chest pressure or pain. Denies of any therapeutic shocks from his AICD. Denies of any palpitations. Reviewed/Discussed With: other (Patient was examined with Dr. Tse.) Objective: Vital Signs (8 Hrs) Temp Pulse Resp BP Pulse Ox 06/15/16 08:00 36.8 C 72 20 103/47 L 98 06/15/16 04:00 36.9 C 62 17 91/49 L 98 Intake/Output (24 Hrs) 06/14/16 06/15/16 06/16/16 05:59 05:59 05:59 Intake Total 2943 250 Output Total 275 450 200 Balance 2668 -200 -200 Intake: Oral (ml) 1240 0 IV Intake (ml) 1203 250 IV Infused (ml) 500 Ns 500 ml @ 1500 mls/hr 500 IV ONCE ONE Rx#: [id number] Output: Urine (ml) 275 450 200 Toilet 200 Urinal 275 450 Other: Weight 90.6 kg Number of Voids Diapers/Briefs 1 Toilet 3 1 1 Number of Stools Toilet 3 1 Result Diagrams: 06/15/16 05:45 06/15/16 05:13 - Physical Exam Constitutional: no apparent distress Ears, Nose, Mouth, Throat: moist mucous membranes Cardiovascular: no murmurs, no rubs, no gallops, irregularly irregular (AFib on monitors.), jugular vein distention (7-8 cm above sternal notch at 45 degree angle), pulses symmetric bilat, No carotid bruit Peripheral Pulses: 1+: dorsalis-pedis (R), dorsalis-pedis (L), 2+: carotid (R), carotid (L) Respiratory: other (Upper lobes clear, rales noted in bases bilateral, no rhonchi, or wheezing noted. No accessary muscle use, no intercostal muscle retraction noted.) Gastrointestinal: normoactive bowel sounds, tenderness (Right upper quadrant) Skin: no rashes, warm, No no edema (+1 peripheral edema bilateral lower extremities) Neurologic: AAOx3 Psychiatric: cooperative, interactive, following commands, not anxious ICD10 Worksheet Patient Problems: Problems Problem Status Onset Hepatoma Acute Abdominal pain, epigastric Acute Afib Acute CHF (congestive heart failure) Acute Chest pain Acute Coronary artery disease Acute Hyperkalemia Acute Ischemic cardiomyopathy Acute Palpitations Acute Urinary tract infection Acute Ventricular tachycardia Acute Ventricular tachycardia by electrocardiogram Acute
[2016-06-15] MEDS: PANTOPRAZOLE SODIUM 40 MG TAB PO PRN (12:58)
[2016-06-15] MEDS: MULTIVITAMINS 1 EACH TAB PO SCH (13:03)
[2016-06-15] MEDS: MAGNESIUM HYDROXIDE 30 ML UDCUP PO PRN (14:42)
--- NOTE | 2016-06-15 14:50 | HOSPPROG ---
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, path pending - was bleeding, H/H stable now - f/u path # volume status: Today he is somewhat volume overloaded - lasix IV today # hypotension - getting fluids, hope to be able to give him his cardiac meds today - hold his Imdur and losartan; will attempt to continue antiarrhythmics # ischemic cardiomyopathy: EF 35% - aldactone, coreg, lasix # a fib: with hx of multiple prior ablations, anti-coagulated as above, hold eliquis for now and monitor on tele # CAD s/p CABG - coreg, sotolol, mexiletine # hx VT - ICD - potassium should be around 5, getting K today # pain control - on PO narcotics, decrease as able # nausea - phenergan # hx of: malignant melanoma, HTN, HLD, BPH # recent recurrent UTI/prostatitis: followed by urology, had been on macrobid for a prolonged period of time which is now listed as an allergy. Last urine culture showing > 100K or normal urogenital bonny on 05/31. No current sxs # DNR # dispo - not ready for dc yet ## discussed with Dr Tse Subjective: When and slow V-tach last night; transferred to PCU Objective: Vital Signs Temp Pulse Resp BP Pulse Ox 36.7 C 92 20 98/46 L 95 06/15/16 11:55 06/15/16 11:55 06/15/16 11:55 06/15/16 12:53 06/15/16 11:55 Laboratory Results 06/15/16 05:45 06/14/16 06/15/16 06/16/16 05:59 05:59 05:59 Intake Total 2943 250 960 Output Total 275 450 600 Balance 2668 -200 360 PT 17.4 SEC (12.0-15.0) H 06/10/16 12:53 INR 1.43 (0.83-1.16) H 06/10/16 12:53 Vitals reviewed Pleasant, no acute distress Regular rate and rhythm, no murmurs rubs or gallops No respiratory distress, lungs clear to auscultation bilaterally, no wheezes or rales Abdomen soft nontender, nondistended, no hepatosplenomegaly ICD10 Worksheet Patient Problems: Problems Problem Status Onset Abdominal pain, epigastric Acute Afib Acute Ischemic cardiomyopathy Acute Coronary artery disease Acute Ventricular tachycardia Acute Palpitations Acute Chest pain Acute Ventricular tachycardia by electrocardiogram Acute Hyperkalemia Acute Urinary tract infection Acute CHF (congestive heart failure) Acute Hepatoma Acute
[2016-06-15 15:30] LABS: ANION GAP 9 mEq/L (8-16); CARBON DIOXIDE 20 mEq/l (22-31); CHLORIDE 101 mEq/L (97-110); CREATININE 0.8 mg/dL (0.7-1.3); GLOMERULAR FILTRATION RATE > 60; GLUCOSE 145 mg/dL (70-100); POTASSIUM 4.8 mEq/L (3.5-5.2); SODIUM 130 mEq/L (134-144)
[2016-06-15] MEDS: ACETAMINOPHEN 325 MG TAB PO PRN (21:13)
[2016-06-16 05:29] LABS: % IMMATURE GRANULYOCYTES 1.2 % (0.0-1.1); ABSOLUTE IMMATURE GRANULOCYTES 0.08 10^3/uL (0.00-0.10); ADD DIFF? NO; ADD MORPH? NO; ADD SCAN? NO; ATYPICAL LYMPHOCYTE FLAG 30 (0-99); FRAGMENT RBC FLAG 20 (0-99); HEMATOCRIT 30.3 % (40.0-51.0); HEMOGLOBIN 10.5 g/dL (13.7-17.5); LEFT SHIFT FLG 10 (0-99); LIPEMIA HEMOLYSIS FLAG 90 (0-99); MEAN CELL HEMOGLOBIN 30.5 pg (27.9-34.1); MEAN CELL HEMOGLOBIN CONCENTR. 34.7 g/dL (32.4-36.7); MEAN CELL VOLUME 88.1 fL (81.5-99.8); MEAN PLATELET VOLUME 11.3 fL (8.7-11.7); PLATELET CLUMPS FLAG 40 (0-99); PLATELET COUNT 119 10^3/uL (150-400); RED BLOOD CELL COUNT 3.44 10^6/uL (4.40-6.38); RED CELL DISTRIBUTION WIDTH 14.3 % (11.5-15.2)
[2016-06-16 06:06] LABS: ANION GAP 8 mEq/L (8-16); CALCIUM 8.1 mg/dL (8.5-10.4); CARBON DIOXIDE 22 mEq/l (22-31); CHLORIDE 101 mEq/L (97-110); CREATININE 0.9 mg/dL (0.7-1.3); GLOMERULAR FILTRATION RATE > 60; GLUCOSE 84 mg/dL (70-100); MAGNESIUM 2.1 mg/dL (1.6-2.3); POTASSIUM 4.7 mEq/L (3.5-5.2); SODIUM 131 mEq/L (134-144)
[2016-06-16] MEDS: ACETAMINOPHEN 325 MG TAB PO PRN ×2 (07:27→16:08)
[2016-06-16] MEDS: SOTALOL HCL 80 MG TAB PO SCH ×2 (08:21→20:05)
[2016-06-16] MEDS: MEXILETINE HCL 150 MG CAP PO SCH ×2 (08:21→17:32)
[2016-06-16] MEDS: OMEGA-3 FATTY ACIDS 1,000 MG CAP PO SCH ×3 (08:22→20:06)
[2016-06-16] MEDS: CARVEDILOL 6.25 MG TAB PO SCH ×4 (09:49→17:31)
[2016-06-16] MEDS: SPIRONOLACTONE 25 MG TAB PO SCH ×2 (10:22→20:04)
--- NOTE | 2016-06-16 10:26 | SOAPPROG ---
SOAP Progress Note Assessment/Plan: Assessment: 1. Hepatic mass with bleed; stable after embolization at IR yesterday(PATH special stains pending for today). 2. Post-hemorrhagic anemia; stable. 3. RUQ abdominal pain secondary to recent IR embolization and bx of liver mass; improved. 4. IHD, recent VT. Plan: Await liver mass path. Discussed with patient, and daughter possible second opinion of path slide with [facility] if this set of IHC stains indeterminate of diagnosis. 15 minute of 20 minute encounter(10:02-10:22) spent on reviewing treatment plan. Rishi Ibrahim MD 06/16/16 10:22 Subjective: CC; Hepatic mass with bleed. Interval HPI: Patient feeling better. No nausea, less RUQ pain. Objective: Vital Signs Temp Pulse Resp BP Pulse Ox 36.5 C 68 18 92/45 L 96 06/16/16 07:48 06/16/16 08:21 06/16/16 07:48 06/16/16 09:22 06/16/16 07:48 Laboratory Results 06/16/16 04:00 06/16/16 04:00 06/15/16 06/16/16 06/17/16 05:59 05:59 05:59 Intake Total 250 1180 Output Total 450 2100 100 Balance -200 -920 -100 PT 17.4 SEC (12.0-15.0) H 06/10/16 12:53 INR 1.43 (0.83-1.16) H 06/10/16 12:53 Physical Exam - Physical Exam General Appearance: alert, no apparent distress Respiratory: lungs clear, normal breath sounds Cardiac/Chest: regular rate, rhythm Abdomen: normal bowel sounds, non-tender, soft, distended Skin: normal color, warm/dry Neuro/Psych: alert, normal mood/affect, oriented x 3 ICD10 Worksheet Patient Problems: Problems Problem Status Onset Hepatoma Acute Abdominal pain, epigastric Acute Afib Acute CHF (congestive heart failure) Acute Chest pain Acute Coronary artery disease Acute Hyperkalemia Acute Ischemic cardiomyopathy Acute Palpitations Acute Urinary tract infection Acute Ventricular tachycardia Acute Ventricular tachycardia by electrocardiogram Acute
[2016-06-16] MEDS: FUROSEMIDE 40 MG TAB PO SCH (11:19)
[2016-06-16] MEDS: MULTIVITAMINS 1 EACH TAB PO SCH (11:50)
--- NOTE | 2016-06-16 14:45 | PDCARPN ---
Cardiology Progress Note Chief Complaint: Patient reports mild shortness of breath, and improvement in right upper quadrant pain. Assessment/Plan: Assessment: 85-year-old male with known history CAD with prior CABG, ischemic cardiomyopathy with severely reduced LV systolic function, status post biventricular AICD, permanent atrial fibrillation, ventricular tachycardia. Admitted to the hospital June 10 with bleeding into a liver mass and hypotension. IR procedure done on 06/11/2016 with biopsy of liver and embolization. ProBNP on 06/14/2016 months [id number]. Echocardiogram done 06/14/2016 showed mild concentric LVH, diastolic dysfunction, EF of 35% with inferior and inferior lateral hypokinesis. RV was moderately dilated, LA is severely dilated , RA is moderately to severely dilated, mild MR, mild TR, RVSP estimated at 50 mm Hg, moderate AI, mild mild TR, no pericardial effusion. Since his IR procedure, he has been having bouts of hypotension, with periods during the hospitalization of holding his cardiac medications. Also for episodes of hypotension, he has received multiple IV fluid boluses. Today, patient reports improvement in shortness after IV Lasix yesterday. Patient's weight is down 3 kilos. JVD decreased. Patient noted to have 2 runs of nonsustained ventricular tachycardia, 1st at 7:39 p.m., lasting 8-10 beats, at a rate around 100 BPM. 2nd at 6:10 a.m. that lasted 20 seconds. Again rate around 100 BPM. Patient asymptomatic. Potassium 4.7, magnesium 2.1, this a.m.. Denies of any chest pain or symptoms suggesting of ischemia. Reports improvement in right upper quadrant. Improvement in hyponatremia with sodium at 1:31 a.m. today. Blood pressure appears to be more stable. He has not missed any doses of cardiac medications. Plan: 1. Hypotension: Improvement today. Systolic blood pressure running in mid 90s. Will continue holding losartan and Imdur. Consider restarting these as an outpatient. 2. CAD: Denies of any chest pain or symptoms suggesting of ischemia. Continue on Carvedilol. Will hold his Imdur as above. Patient is statin intolerant. Patient had not been on aspirin therapy due to GI upset. 3. Ischemic cardiomyopathy: Echo 06/14 showed EF 35%. Bi V pace. Continue on carvedilol and Aldactone as ordered. Losartan on hold due to hypotension. 4. Acute on chronic acute on chronic systolic heart failure: Patient's weight down today by close to 3 kilos. Patient reporting good output with IV Lasix yesterday. Improvement in shortness of breath. Restarted him on home dose of oral Lasix today. Continue on home dose of Aldactone. 5. Atrial fibrillation: Well rate controlled at current time. Continue on carvedilol and sotalol. Anticoagulation of Eliquis has been on hold since bleed. Did discussed with Dr. Lopez, who has spoken with GI. Recommendation of starting on anti-platelet therapy. Hold off on full anticoagulation at this time. Patient has a chads Vasc score of at least 4 (age, CHF, CAD). I have discussed this with Dr. French (EP services) and Dr. Tse. I have discussed the risk of not being on anticoagulation with both the patient and his , they verbalize understanding. Plan at current time is to start him on low-dose enteric-coated aspirin for few weeks (patient reports he has no problem taking enteric-coated aspirin), when proven no further bleeding, then consideration restarting him on full anticoagulation, possibly an agent that is reversible such as Pradaxa or warfarin. 6. Bleeding and liver mass: Status post embolization status post embolization in Interventional Radiology. H&H stable. Pathology pending. 7. VT: Patient noted overnight to have 2 slow episodes of nonsustained ventricular tachycardia, rate of 100 BPM. Patient denies of any therapeutic shocks from his AICD. Potassium and magnesium levels within normal limits. Continue on current doses of carvedilol, sotalol, and mexiletine. Patient has AICD. 06/16/16 14:34 Subjective: Patient reports improvement in his shortness of breath, denies of any chest pressure or pain. Denies of any palpitations, lightheadedness, near-syncope or syncopal events. Denies of any therapeutic shocks from his AICD. Reports bloating sensation has improved since restarting diuretic therapy. Reviewed/Discussed With: hospitalist (Dr Lopez), other (Dr Tse and Dr French) Objective: Vital Signs (8 Hrs) Temp Pulse Resp BP Pulse Ox 06/16/16 12:58 70 108/53 L 06/16/16 11:19 36.3 C 71 18 96/46 L 98 06/16/16 10:21 70 96/48 L 06/16/16 09:22 92/45 L 06/16/16 08:21 68 101/46 L 06/16/16 07:48 36.5 C 52 L 18 94/49 L 96 Intake/Output (24 Hrs) 06/15/16 06/16/16 06/17/16 05:59 05:59 05:59 Intake Total 250 1180 Output Total 450 2100 100 Balance -200 -920 -100 Intake: Oral (ml) 0 1180 IV Intake (ml) 250 Output: Urine (ml) 450 2100 100 Toilet 1550 100 Urinal 450 550 Other: Weight 90.6 kg 87 kg Number of Voids Toilet 1 2 Number of Stools Toilet 1 1 Result Diagrams: 06/16/16 04:00 06/16/16 04:00 - Physical Exam Constitutional: no apparent distress Ears, Nose, Mouth, Throat: moist mucous membranes Cardiovascular: regular rate and rhythm (Underlying rhythm atrial fibrillation, ventricular paced beat.), no rubs, no gallops, systolic murmur (1/6 systolic murmur noted along left sternal border.), jugular vein distention (5-6 cm above sternal notch at a 45 degree angle.), pulses symmetric bilat, No carotid bruit Peripheral Pulses: 1+: dorsalis-pedis (R), dorsalis-pedis (L) Respiratory: other (Lungs diminished in bases, no rhonchi, rales, or wheezing noted. No accessary muscle use, no intercostal muscle retraction noted.) Gastrointestinal: normoactive bowel sounds Skin: warm, no edema Neurologic: AAOx3 Psychiatric: cooperative, interactive, following commands ICD10 Worksheet Patient Problems: Problems Problem Status Onset Abdominal pain, epigastric Acute Afib Acute Ischemic cardiomyopathy Acute Coronary artery disease Acute Ventricular tachycardia Acute Palpitations Acute Chest pain Acute Ventricular tachycardia by electrocardiogram Acute Hyperkalemia Acute Urinary tract infection Acute CHF (congestive heart failure) Acute Hepatoma Acute
--- NOTE | 2016-06-16 15:40 | HOSPPROG ---
Hospitalist Progress Note Assessment/Plan: # Likely hepatoma status post embolization, path pending - was bleeding, H/H stable now - path pending # Ascites - continue Lasix 80mg daily + Aldactone # Hypotension -cont to hold Imdur and losartan # ischemic cardiomyopathy: EF 35% - Aldactone, Coreg, Lasix # a fib: with hx of multiple prior ablations, anti-coagulated as above -start ECASA # CAD s/p CABG - Coreg, Sotalol, mexiletine # hx VT - ICD - potassium should be around 5, getting K today # pain control - on PO narcotics, decrease as able # nausea - phenergan # hx of: malignant melanoma, HTN, HLD, BPH # recent recurrent UTI/prostatitis: followed by urology, had been on macrobid for a prolonged period of time which is now listed as an allergy. Last urine culture showing > 100K or normal urogenital bonny on 05/31. No current sxs # DNR # dispo - dc home once bp is stable on po meds ## discussed with Dr Tse Subjective: reports some abd swelling. no chest pain or sob. no fever or chills. denies obvious bleeding Objective: Vital Signs Temp Pulse Resp BP Pulse Ox 36.3 C 70 18 108/53 L 98 06/16/16 11:19 06/16/16 12:58 06/16/16 11:19 06/16/16 12:58 06/16/16 11:19 Laboratory Results 06/16/16 04:00 06/16/16 04:00 06/15/16 06/16/16 06/17/16 05:59 05:59 05:59 Intake Total 250 1180 Output Total 450 2100 100 Balance -200 -920 -100 PT 17.4 SEC (12.0-15.0) H 06/10/16 12:53 INR 1.43 (0.83-1.16) H 06/10/16 12:53 - Physical Exam Constitutional: no apparent distress, appears nourished, not in pain Cardiovascular: No edema Respiratory: no respiratory distress, no rales or rhonchi, clear to auscultation , reduced air movement, No expiratory wheeze, No inspiratory crackles Gastrointestinal: normoactive bowel sounds, soft, non-tender abdomen, no palpable masses, distension, No guarding, No rebound Neurologic: AAOx3, CN II-XII Intact, No facial droop ICD10 Worksheet Patient Problems: Problems Problem Status Onset Abdominal pain, epigastric Acute Afib Acute Ischemic cardiomyopathy Acute Coronary artery disease Acute Ventricular tachycardia Acute Palpitations Acute Chest pain Acute Ventricular tachycardia by electrocardiogram Acute Hyperkalemia Acute Urinary tract infection Acute CHF (congestive heart failure) Acute Hepatoma Acute
[2016-06-16] MEDS: PANTOPRAZOLE SODIUM 40 MG TAB PO PRN (16:08)
[2016-06-16] MEDS: BISMUTH SUBSALICYLATE 524 MG/30 ML UDL PO PRN (20:04)
[2016-06-17] MEDS: ACETAMINOPHEN 325 MG TAB PO PRN ×2 (01:26→18:37)
[2016-06-17 08:45] LABS: % IMMATURE GRANULYOCYTES 0.4 % (0.0-1.1); ABSOLUTE IMMATURE GRANULOCYTES 0.03 10^3/uL (0.00-0.10); ADD DIFF? NO; ADD MORPH? NO; ADD SCAN? NO; ATYPICAL LYMPHOCYTE FLAG 40 (0-99); FRAGMENT RBC FLAG 0 (0-99); HEMOGLOBIN 10.9 g/dL (13.7-17.5); LEFT SHIFT FLG 0 (0-99); LIPEMIA HEMOLYSIS FLAG 80 (0-99); MEAN CELL HEMOGLOBIN 30.8 pg (27.9-34.1); MEAN CELL VOLUME 93.2 fL (81.5-99.8); MEAN PLATELET VOLUME 10.3 fL (8.7-11.7); PLATELET CLUMPS FLAG 10 (0-99); PLATELET COUNT 134 10^3/uL (150-400); RED BLOOD CELL COUNT 3.54 10^6/uL (4.40-6.38); RED CELL DISTRIBUTION WIDTH 14.4 % (11.5-15.2)
[2016-06-17] MEDS: ASPIRIN EC 81 MG TAB PO SCH (09:02)
[2016-06-17] MEDS: SOTALOL HCL 80 MG TAB PO SCH ×2 (09:02→21:05)
[2016-06-17] MEDS: SPIRONOLACTONE 25 MG TAB PO SCH ×2 (09:02→21:06)
[2016-06-17] MEDS: MEXILETINE HCL 150 MG CAP PO SCH ×2 (09:02→18:12)
[2016-06-17] MEDS: OMEGA-3 FATTY ACIDS 1,000 MG CAP PO SCH ×2 (09:04→21:06)
[2016-06-17] MEDS: CARVEDILOL 6.25 MG TAB PO SCH ×3 (09:04→18:12)
[2016-06-17] MEDS: FUROSEMIDE 40 MG TAB PO SCH (09:04)
[2016-06-17 09:34] LABS: ANION GAP 9 mEq/L (8-16); CALCIUM 8.1 mg/dL (8.5-10.4); CARBON DIOXIDE 23 mEq/l (22-31); CHLORIDE 98 mEq/L (97-110); CREATININE 0.8 mg/dL (0.7-1.3); GLOMERULAR FILTRATION RATE > 60; GLUCOSE 138 mg/dL (70-100); POTASSIUM 4.2 mEq/L (3.5-5.2); SODIUM 130 mEq/L (134-144)
--- NOTE | 2016-06-17 10:58 | HOSPPROG ---
Hospitalist Progress Note Assessment/Plan: # biopsy proven hepatoma status post embolization - h/h stable - will consult onc # Ascites - continue Lasix 80mg daily + Aldactone # Hypotension (stable) -cont to hold Imdur and losartan # ischemic cardiomyopathy: EF 35% - Aldactone, Coreg, Lasix # a fib: with hx of multiple prior ablations, anti-coagulated as above - ECASA restarted 06/16 # CAD s/p CABG - Coreg, Sotalol, mexiletine # paroxysmal VT - ICD - potassium should be around 5, getting K today # pain control - on PO narcotics, decrease as able # nausea - phenergan # hx of: malignant melanoma, HTN, HLD, BPH # recent recurrent UTI/prostatitis: followed by urology, had been on macrobid for a prolonged period of time which is now listed as an allergy. Last urine culture showing > 100K or normal urogenital bonny on 05/31. No current sxs # DNR # dispo - possible dc tomorrow Subjective: episode of palpatations this morning. no other acute complaints Objective: Vital Signs Temp Pulse Resp BP Pulse Ox 36.3 C 61 22 H 101/41 L 99 06/17/16 07:55 06/17/16 07:55 06/17/16 07:55 06/17/16 07:55 06/17/16 07:55 Laboratory Results 06/17/16 08:38 06/17/16 08:38 06/16/16 06/17/16 06/18/16 05:59 05:59 05:59 Intake Total 1180 1570 Output Total 2100 1550 225 Balance -920 20 -225 PT 17.4 SEC (12.0-15.0) H 06/10/16 12:53 INR 1.43 (0.83-1.16) H 06/10/16 12:53 - Physical Exam Constitutional: no apparent distress, appears nourished, not in pain Cardiovascular: regular rate and rhythym, no murmur, rub, or gallop Respiratory: no respiratory distress, no rales or rhonchi, clear to auscultation Gastrointestinal: normoactive bowel sounds, soft, non-tender abdomen, no palpable masses, distension, No guarding, No rebound Neurologic: AAOx3, sensation intact bilaterally ICD10 Worksheet Patient Problems: Problems Problem Status Onset Abdominal pain, epigastric Acute Afib Acute Ischemic cardiomyopathy Acute Coronary artery disease Acute Ventricular tachycardia Acute Palpitations Acute Chest pain Acute Ventricular tachycardia by electrocardiogram Acute Hyperkalemia Acute Urinary tract infection Acute CHF (congestive heart failure) Acute Hepatoma Acute
[2016-06-17] MEDS: BISMUTH SUBSALICYLATE 524 MG/30 ML UDL PO SCH (10:59)
[2016-06-17] MEDS: MULTIVITAMINS 1 EACH TAB PO SCH (12:21)
[2016-06-17] MEDS: PANTOPRAZOLE SODIUM 40 MG TAB PO PRN (12:21)
[2016-06-17 13:59] LABS: % SATURATION 11 % (20-55); TOTAL IRON BINDING CAPACITY 259 ug/dL (260-490)
[2016-06-17 14:26] LABS: ALPHA-FETOPROTEIN TUMOR MARKER 2.12 ng/mL (0.00-7.51)
--- NOTE | 2016-06-17 14:28 | SOAPPROG ---
SOAP Progress Note Assessment/Plan: Assessment: 1. Hepatic mass with bleed; stable after embolization at IR yesterday(PATH shows HCC). 2. Post-hemorrhagic anemia; stable. 3. RUQ abdominal pain secondary to recent IR embolization and bx of liver mass; improved. 4. IHD, recent VT. Plan: 1. Oncology consultation today. 2. Probable D/C home tomorrow. 3. Will sign off case today. Rishi Ibrahim MD 06/17/16 14:16 Subjective: CC: Hepatoma with bleed. Interval HPI: Patient without complaints. No significant abdominal pain. Wants to take a walk in the [place]. Objective: Vital Signs Temp Pulse Resp BP Pulse Ox 36.3 C 74 16 107/52 L 95 06/17/16 12:00 06/17/16 12:00 06/17/16 12:00 06/17/16 12:00 06/17/16 12:00 Laboratory Results 06/17/16 08:38 06/17/16 08:38 06/16/16 06/17/16 06/18/16 05:59 05:59 05:59 Intake Total 1180 1570 Output Total 2100 1550 700 Balance -920 20 -700 PT 17.4 SEC (12.0-15.0) H 06/10/16 12:53 INR 1.43 (0.83-1.16) H 06/10/16 12:53 Physical Exam - Physical Exam General Appearance: alert, no apparent distress Respiratory: chest non-tender, lungs clear, normal breath sounds Abdomen: normal bowel sounds, non-tender Skin: normal color, warm/dry Neuro/Psych: alert, normal mood/affect, oriented x 3 ICD10 Worksheet Patient Problems: Problems Problem Status Onset Hepatoma Acute Abdominal pain, epigastric Acute Afib Acute CHF (congestive heart failure) Acute Chest pain Acute Coronary artery disease Acute Hyperkalemia Acute Ischemic cardiomyopathy Acute Palpitations Acute Urinary tract infection Acute Ventricular tachycardia Acute Ventricular tachycardia by electrocardiogram Acute
[2016-06-17 16:14] LABS: MAGNESIUM 1.9 mg/dL (1.6-2.3); POTASSIUM 4.5 mEq/L (3.5-5.2)
[2016-06-17] MEDS ORDERED: IOPAMIDOL (ISOVUE-300) 100 ML BTL IV ONE (18:20)
--- NOTE | 2016-06-17 18:26 | PDCARPN ---
Cardiology Progress Note Chief Complaint: Dyspnea on exertion after 100 feet of walking, right upper quadrant pain. Assessment/Plan: Assessment: 85-year-old male with known history CAD with prior CABG, ischemic cardiomyopathy with severely reduced LV systolic function, status post biventricular AICD, permanent atrial fibrillation, ventricular tachycardia. Admitted to the hospital June 10 with bleeding into a liver mass and hypotension. IR procedure done on 06/11/2016 with biopsy of liver and embolization. ProBNP on 06/14/2016 months [id number]. Echocardiogram done 06/14/2016 showed mild concentric LVH, diastolic dysfunction, EF of 35% with inferior and inferior lateral hypokinesis. RV was moderately dilated, LA is severely dilated , RA is moderately to severely dilated, mild MR, mild TR, RVSP estimated at 50 mm Hg, moderate AI, mild mild TR, no pericardial effusion. Since his IR procedure, he has been having bouts of hypotension, with periods during the hospitalization of holding his cardiac medications. Also for episodes of hypotension, he has received multiple IV fluid boluses post procedure. 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 Patient weight is down half a kilos from yesterday. Noted to have 2 runs of nonsustained ventricular tachycardia, longest was at 1:00 p.m. around 20 seconds. Asymptomatic. Repeated lab work showed potassium 4.5, magnesium 1.9. Patient' s H&H remained stable at 10.9 and 33.0. Reviewed VT strips with Dr. Jensen, recommend continuation with carvedilol, sotalol, and mexiletine. Attempt to restart on losartan. BP has been stable, with systolic in low 100s most today. Denies of any chest pressure or symptoms suggesting of ischemia. Improvement in abdomen bloating. Does admit LIAO with exertion of greater than 100 feet. Plan: 1. Hypotension: Improvement today. Systolic blood pressure running in 100's. Will continue holding Imdur. Consider restarting as an outpatient. 2. CAD: Denies of any chest pain or symptoms suggesting of ischemia. Continue on Carvedilol. Will hold his Imdur as above. Patient is statin intolerant. Patient had not been on aspirin therapy due to GI upset. 3. Ischemic cardiomyopathy: Echo 06/14 showed EF 35%. Bi V pace. Continue on carvedilol and Aldactone as ordered. Restart on losartan. 4. Acute on chronic acute on chronic systolic heart failure: Patient weight is down 0.5 kilos. He has been restarted on home dose of Lasix. Reporting good output. Continue on home dose of Aldactone. Continue monitoring daily weights , electrolyte meds, renal function and magnesium. 5. Atrial fibrillation: Well rate controlled at current time. Continue on carvedilol and sotalol. Have discussed anticoagulation with , agrees with leaving patient on anti-platelet therapy of enteric-coated aspirin at 81 mg, consider restarting full anticoagulation in 2 weeks, with recommendation of warfarin or Pradaxa (reversible agents) 6. Bleeding and liver mass: Status post embolization status post embolization in Interventional Radiology. H&H stable. Pathology showing HCC, patient to be seen by Oncology today. 7. VT: Patient noted to have 2 slow episodes of nonsustained ventricular tachycardia, rate of 100 BPM, last episode at 1:00 p.m. potassium and magnesium within normal limits. Patient denies of any therapeutic shocks from his AICD. Reviewed with Dr. Jensen. Continue on current doses of carvedilol, sotalol, and mexiletine. Restart losartan. Patient has AICD. 06/17/16 18:23 Subjective: Patient continues to report right upper quadrant pain, denies of any chest pressure or symptoms suggesting of ischemia. Denies of any episodes of palpitations, lightheadedness, near-syncope or syncopal events. Denies of any therapeutic shocks from AICD. Reports dyspnea on exertion with 100 feet of walking Reviewed/Discussed With: family (Patient and his ), hospitalist (Dr Lopez), multidisciplinary team (Dr Ibrahim), other (Dr Jensen) Objective: Vital Signs (8 Hrs) Temp Pulse Resp BP Pulse Ox 06/17/16 16:00 36.7 C 88 25 H 103/52 L 95 06/17/16 12:00 36.3 C 74 16 107/52 L 95 Intake/Output (24 Hrs) 06/16/16 06/17/16 06/18/16 05:59 05:59 05:59 Intake Total 1180 1570 550 Output Total 2100 1550 1300 Balance -920 20 -750 Intake: Oral (ml) 1180 1570 550 Output: Urine (ml) 2100 1550 1300 Toilet 1550 1400 Urinal [phone] Other: Weight 87 kg 86.7 kg Number of Voids Toilet 2 1 1 Urinal 1 Number of Stools Toilet 1 2 1 Result Diagrams: 06/17/16 08:38 06/17/16 15:35 - Physical Exam Constitutional: no apparent distress Ears, Nose, Mouth, Throat: moist mucous membranes Cardiovascular: regular rate and rhythm (Underlying rhythm atrial fibrillation ventricular paced beat.), no rubs, no gallops, jugular vein distention (5-6 cm above sternal notch), pulses symmetric bilat Peripheral Pulses: 1+: dorsalis-pedis (R), dorsalis-pedis (L) Respiratory: other (Lungs diminished in bases bilateral, no rhonchi, rales, or wheezing noted. No accessary muscle use, no intercostal muscle retraction noted. ) Gastrointestinal: normoactive bowel sounds, tenderness (Right upper quadrant,), other (Abdomen firm.) Skin: warm, no edema Neurologic: AAOx3 Psychiatric: cooperative, interactive, following commands, not anxious ICD10 Worksheet Patient Problems: Problems Problem Status Onset Hepatoma Acute Abdominal pain, epigastric Acute Afib Acute CHF (congestive heart failure) Acute Chest pain Acute Coronary artery disease Acute Hyperkalemia Acute Ischemic cardiomyopathy Acute Palpitations Acute Urinary tract infection Acute Ventricular tachycardia Acute Ventricular tachycardia by electrocardiogram Acute
[2016-06-17] MEDS ORDERED: POTASSIUM CL 10 MEQ TAB PO ONE (19:00)
[2016-06-17] MEDS: BISMUTH SUBSALICYLATE 524 MG/30 ML UDL PO PRN (20:02)
[2016-06-17 22:55] VITALS: O2SAT 94
--- NOTE | 2016-06-17 23:00 | GCON ---
ONCOLOGY CONSULTATION DATE OF CONSULTATION: 06/17/2016 REFERRING PHYSICIAN: Salvador Lopez DO REASON FOR CONSULTATION: Newly diagnosed hepatocellular carcinoma. HISTORY OF PRESENT ILLNESS: The patient is an 85-year-old man with newly diagnosed hepatocellular carcinoma. For number of years, he had a lesion noted in the liver, which was not changing. It was felt to represent a benign tumor. He had abdominal surgery for unrelated reasons. A wedge biopsy of the liver was performed which showed nodular hyperplasia. However, over the past several weeks, he began to develop some right upper quadrant pain. A repeat CT scan showed that the lesion, which had previously measured 8 cm, now measured 12 cm and there were at least 8 new hypervascular lesions measuring up to 6 cm in both lobes of the liver. There was some concern that he might be having bleeding into one of the lesions. He was on Coumadin for atrial fibrillation. He was admitted to the hospital. An embolization procedure was performed on June 11. A liver biopsy was also performed which revealed a hepatocellular carcinoma. The examination was somewhat limited by the fact that the majority of the specimen consisted of benign hepatic tissue. The tumor stained positive for Hep Par 1, and HMB-45, melan-A S100 TTF-1, CK7, CK20 , and ONEIL negative. A stain for CEA was also negative. This was felt to be most consistent with hepatocellular carcinoma. The patient does not have any prior history of known liver disease. PAST MEDICAL HISTORY: 1. Coronary artery disease. 2. Ischemic cardiomyopathy with ejection fraction of 30%. 3. ICD placement. 4. Chronic atrial fibrillation. CURRENT MEDICATIONS: Includes: 1. Aspirin 81 mg. 2. Carvedilol 12.5 mg p.o. twice daily. 3. Lasix 80 mg p.o. daily. 4. Imdur 50 mg p.o. daily. 5. Losartan 12.5 mg daily. 6. Mexiletine 150 mg b.i.d. 7. Oxycodone 5019 mg p.o. q.3 hours p.r.n. pain. 8. Protonix 40 mg daily. 9. Spironolactone 25 mg b.i.d. ALLERGIES: Amiodarone. FAMILY HISTORY: Noncontributory. SOCIAL HISTORY: He is a nonsmoker and nondrinker. Lives with his . REVIEW OF SYSTEMS: Pertinent positives noted in the HPI. A 14-point review of systems are negative. PHYSICAL EXAMINATION: VITAL SIGNS: Temperature was 36.7, blood pressure 103/52 , heart rate 88, oxygen saturation 95% on 1 L. GENERAL: He was an elderly man in no acute distress. HEENT: Sclerae anicteric. Oropharynx is clear. NECK: Supple without lymphadenopathy. LUNGS: Clear to auscultation bilaterally. CARDIAC: Regular rate and rhythm. No murmurs, gallops, rubs. ABDOMEN: Normoactive bowel sounds. Liver edge is palpable 2 cm below the costal margin. It was nontender. EXTREMITIES: Trace edema. SKIN: There were some ecchymoses bilaterally. LABORATORY DATA: White count 6.73, hemoglobin 10.9, platelets of 134. Sodium 130, potassium 4.2, chloride 98, bicarb 23, BUN 28, creatinine 0.8. ALT 786 AST 485 Alk phos 250 total bili 2.0. Ferritin 916, iron saturation 11%. AFP was normal at 212. Serology was negative for hepatitis B, but positive for hepatitis C. IMPRESSION: This is an 85-year-old man presenting with multifocal hepatocellular carcinoma. He tested positive for hepatitis C antibody, which suggests a chronic viral hepatitis C as a potential etiology of his tumor. He has mild hyperbilirubinemia and elevated LFTs that may be the result of the tumor or chronic viral hepatitis. Given the diffuse nature of the disease throughout the liver, this is not a curable malignancy. In any event, the patient is too old and has too many comorbidities to be considered for liver transplant, which is really the only curative modality for this malignancy. I ordered a chest CT as well as a bone scan to evaluate for the possibility of extrahepatic metastases. If he does not have any extrahepatic metastases, I would favor liver-directed therapy approach. I discussed the case at length with Dr. Singh, who has already performed angiography on the patient. She felt that he would be a reasonable candidate for radio embolization but that transarterial chemoembolization would be difficult given the widespread nature of the disease. I also discussed with the patient the use of the oral antineoplastic agent, sorafenib, which sometimes results in good responses in patients with hepatocellular carcinoma. The patient will likely be discharged tomorrow, in which case, I will see him to review the imaging studies and discuss the next step in his care. I will also send for a hepatitis C viral load and genotype to better characterize that illness. Thank you for this consultation. It was a pleasure to meet the patient. I appreciate the opportunity to be involved in his care. Please feel free to contact me if you have any additional questions or concerns. /[id number]/MODL MTDD
[2016-06-18 03:26] VITALS: RESP 18
[2016-06-18 03:53] LABS: % IMMATURE GRANULYOCYTES 0.6 % (0.0-1.1); ABSOLUTE IMMATURE GRANULOCYTES 0.04 10^3/uL (0.00-0.10); ADD DIFF? NO; ADD MORPH? NO; ADD SCAN? YES; FRAGMENT RBC FLAG 0 (0-99); HEMATOCRIT 29.7 % (40.0-51.0); LEFT SHIFT FLG 10 (0-99); LIPEMIA HEMOLYSIS FLAG 80 (0-99); MEAN CELL HEMOGLOBIN 30.3 pg (27.9-34.1); MEAN CELL HEMOGLOBIN CONCENTR. 33.7 g/dL (32.4-36.7); MEAN PLATELET VOLUME 10.2 fL (8.7-11.7); PLATELET CLUMPS FLAG 0 (0-99); PLATELET COUNT 139 10^3/uL (150-400); RED CELL DISTRIBUTION WIDTH 14.2 % (11.5-15.2)
[2016-06-18 04:09] LABS: ANION GAP 7 mEq/L (8-16); CALCIUM 7.9 mg/dL (8.5-10.4); CARBON DIOXIDE 25 mEq/l (22-31); CHLORIDE 96 mEq/L (97-110); CREATININE 0.8 mg/dL (0.7-1.3); GLOMERULAR FILTRATION RATE > 60; GLUCOSE 85 mg/dL (70-100); MAGNESIUM 1.9 mg/dL (1.6-2.3); POTASSIUM 4.8 mEq/L (3.5-5.2); SODIUM 128 mEq/L (134-144)
[2016-06-18 04:23] LABS: ATYPICAL LYMPHOCYTE FLAG 100 (0-99)
[2016-06-18 05:06] LABS: SCAN NEGATIVE
[2016-06-18] MEDS: SPIRONOLACTONE 25 MG TAB PO SCH (05:51)
[2016-06-18] MEDS: FUROSEMIDE 40 MG TAB PO SCH (05:57)
[2016-06-18 08:10] VITALS: TEMP 97.7
[2016-06-18] MEDS: MEXILETINE HCL 150 MG CAP PO SCH (08:55)
[2016-06-18] MEDS: SOTALOL HCL 80 MG TAB PO SCH (08:55)
--- NOTE | 2016-06-18 08:55 | SOAPPROG ---
SOAP Progress Note Assessment/Plan: Assessment: 1. Hepatocellular carcinoma, extensive in liver 2. HCV antibody + 3. Elevated LFTS / bili 2.0 4. CAD, CHF, EF 30% 5. Atrial fibrillation 6. Pulmonary emboli Plan: - resume anticoagulation for PEs- will d/w Dr. Lopez and GI - bone scan today - likely Rx with Y90 radioembolization. Sorafenib could also be considered. - HCV antibody + -- viral load and genotype pending. - f/u in clinic with me next week if he is discharged today 06/18/16 08:53 Subjective: somewhat dyspneic last night. Objective: exam: elderly, mildly dyspneic Lungs dullness @ bases CV RRR no MGR Abd: +BS NT ND. hepatomegaly Ext: 2+ edema neuro: a+xo3. Vital Signs Temp Pulse Resp BP Pulse Ox 36.5 C 67 18 101/47 L 94 06/18/16 08:00 06/18/16 08:00 06/18/16 08:00 06/18/16 08:00 06/18/16 08:00 Laboratory Results 06/18/16 03:18 06/18/16 03:18 06/17/16 06/18/16 06/19/16 05:59 05:59 05:59 Intake Total 1570 1090 Output Total 1550 1675 Balance 20 -585 PT 17.4 SEC (12.0-15.0) H 06/10/16 12:53 INR 1.43 (0.83-1.16) H 06/10/16 12:53 CT chest: RIMA emboli. mildly enlarged mediastinal nodes. indeterminate L 8th rib lesion ICD10 Worksheet Patient Problems: Problems Problem Status Onset Hepatoma Acute Abdominal pain, epigastric Acute Afib Acute CHF (congestive heart failure) Acute Chest pain Acute Coronary artery disease Acute Hyperkalemia Acute Ischemic cardiomyopathy Acute Palpitations Acute Urinary tract infection Acute Ventricular tachycardia Acute Ventricular tachycardia by electrocardiogram Acute
[2016-06-18] MEDS: CARVEDILOL 6.25 MG TAB PO SCH ×2 (08:56→13:04)
[2016-06-18] MEDS: ASPIRIN EC 81 MG TAB PO SCH (09:05)
[2016-06-18] MEDS: OMEGA-3 FATTY ACIDS 1,000 MG CAP PO SCH (09:06)
[2016-06-18] MEDS ORDERED: APIXABAN 5 MG TAB PO SCH (11:00)
[2016-06-18] MEDS ORDERED: DABIGATRAN ETEXILATE MESYL 150 MG CAP PO SCH (11:30)
[2016-06-18] MEDS: LOSARTAN POTASSIUM 25 MG TAB PO SCH (13:07)
[2016-06-18 13:08] VITALS: BP 115/57; PULSE 63
[2016-06-18] MEDS: MULTIVITAMINS 1 EACH TAB PO SCH (13:08)
[2016-06-18 14:37] LABS: HEPATITIS Bs Ab QUANT <5.0 mIU/mL
--- NOTE | 2016-06-18 14:42 | GDS ---
DISCHARGE DIAGNOSES: 1. Bleeding liver mass, status post embolization, biopsy-proven hepatocellular carcinoma. 2. Ischemic cardiomyopathy, ejection fraction 35%. 3. Atrial fibrillation. 4. Coronary artery disease. 5. Paroxysmal ventricular tachycardia. 6. Ascites. 7. History of malignant melanoma. 8. History of recurrent urinary tract infections. 9. Incidentally found pulmonary embolism. CONSULTANTS: [facility]; [facility]; Dr. Singh, Interventional Radiology. HOSPITAL COURSE AND STAY BY PROBLEM: 1. Bleeding liver mass: The patient presented with a bleeding liver mass, where he was taken to the interventional radiology lab on 06/11/2016 where he underwent catheter embolization. Liver biopsy subsequently revealed hepatocellular carcinoma. The patient was seen by Dr. Gutierrez from oncology, who will see the patient on an outpatient basis. 2. Pulmonary embolism: The patient had a cancer staging chest CT done on 06/17 that showed small volume acute thromboembolic disease in the left upper lobe. I discussed treatment options with the patient that included warfarin versus Lovenox versus Pradaxa versus Eliquis. The patient has opted to start Pradaxa given the fact that it has a reversibility agent. I discussed with the patient the FDA recommendation to start tgo-[id number] heparin for 5 days given the fact that he has a PE prior to starting Pradaxa. Despite this FDA recommendation, the patient has decided to start Pradaxa alone since he is unable to afford Lovenox injections. The patient was instructed to seek medical attention if he develops any worsening shortness of breath or chest pain. I was somewhat reluctant to start any anticoagulation given the patient' s history of recent bleeding. The patient was advised to seek emergency medical care if he develops any worsening liver pain or signs of symptomatic anemia. 3. History of ischemic cardiomyopathy with acute on chronic systolic heart failure and paroxysmal ventricular tachycardia: The patient has been followed by [facility], who have recommended that we continue with his current dose of Coreg. Losartan has been restarted. DISCHARGE PHYSICAL EXAM: VITAL SIGNS: On the day of discharge, blood pressure 115/57, pulse 63, respiratory rate 18, O2 sat 94% on 1 L, temperature afebrile. GENERAL: No acute distress. HEART: S1, S2. LUNGS: Clear. ABDOMEN: Soft , distended. EXTREMITIES: There is no edema. DIAGNOSTICS DONE THIS HOSPITAL STAY: Liver biopsy done on 06/11/2016, refer to report. Particle embolization performed to the bleeding liver tumor done by Dr. Singh on 06/11/2016. DISCHARGE MEDICATIONS: Please refer to discharge medication reconciliation in [facility]. DISCHARGE INSTRUCTIONS: The patient will be discharged home, where he should follow up with [facility] for a routine hospital followup. He should also follow up with his primary care provider for routine hospital followup. He plans to see Dr. Israel Gutierrez next week to further discuss treatment options for his hepatoma. Greater than 30 minutes were spent on the discharge of this patient /[id number]/MODL MTDD
--- NOTE | 2016-06-18 15:09 | PDIAF ---
- Diagnosis Diagnosis: bleeding hepatoma Code Status: Do Not Resuscitate - Medication Management Discharge Medications: Medications to Continue on Transfer Multivitamins [Multivitamin (*)] 1 each PO DAILY@12 07/09/14 [Last Taken ] Sotalol HCl [Betapace 80 MG (*)] 120 mg PO BID 07/09/14 [Last Taken 06/10/16 09: 00] Magnesium Hydroxide [Milk of Magnesia (*)] 30 ml PO DAILY PRN #0 udcup 07/19/14 [Last Taken 04/29/15] Docusate Sodium [Colace 100 MG (*)] 100 mg PO BID PRN 03/20/15 [Last Taken 03/12 09:00] Omeprazole [Prilosec 20 mg] 20 mg PO DAILY@12 PRN 03/20/15 [Last Taken 03/11/16] Mexiletine HCl [Mexiletine HCl 150 mg (*)] 150 mg PO BID #60 cap 03/27/15 [Last Taken 03/12/16 09:00] Losartan Potassium [Cozaar 25 mg (*)] 12.5 mg PO DAILY@12 03/12/16 [Last Taken 06/09/16] [place]-3 Fatty Acids [Fish Oil 1000 mg (*)] 1,000 mg PO BID 03/12/16 [Last Taken 03/12/16 09:00] Acetaminophen [Tylenol ES 500 mg (*)] 1,000 mg PO TID PRN 06/10/16 [Last Taken Unknown] Bismuth Subsalicylate [Pepto-Bismol oral liquid (*)] 15 ml PO Q3 06/10/16 [Last Taken Unknown] Calcium Carbonate [Tums 500MG (*)] 1,000 mg PO Q4 PRN 06/10/16 [Last Taken Unknown] Carvedilol [Coreg] 6.25 mg PO DAILY@12 06/10/16 [Last Taken 06/10/16 08:00] Carvedilol [Coreg] 12.5 mg PO BID 06/10/16 [Last Taken 06/10/16 08:00] Simethicone [GAS-X] 80 - 160 mg PO QID PRN 06/10/16 [Last Taken Unknown] Acetaminophen [Tylenol 325mg (*)] 650 mg PO Q4HRS PRN #0 tab 06/18/16 [Last Taken Unknown] Dabigatran Etexilate Mesyl [Pradaxa 150 MG (*)] 150 mg PO BID #60 cap 06/18/16 [ Last Taken Unknown] Furosemide [Lasix 40 MG (*)] 80 mg PO DAILY #60 tab 06/18/16 [Last Taken Unknown ] Spironolactone [Aldactone 25 MG (*)] 25 mg PO BID #30 tab 06/18/16 [Last Taken Unknown] Discharge Medications: Refer to the Discharge Home Medication list for PRN reason. - Orders Services needed: Home Care, Registered Nurse, Physical Therapy, Occupational Therapy Home Care Face to Face: I certify that this patient was under my care and that I had the required [id number] encounter meeting the encounter requirements on the discharge day. My findings support the fact that the patient is homebound as defined in CMS Chapter 7 Medicare Benefits Manual 30.1.1, The condition of the patient is such that there exists a normal inability to leave home and consequently, leaving home would require a considerable and taxing effort. Diet Recommendation: sodium restricted Diet Texture: Regular Texture Diet - Follow Up Care Current Providers and Referrals: Cem Conley MD [Medical Doctor] - (June 21 at 11:[address] Miller at [facility] [place] office.) Gabriella Arnett MD [Primary Care Provider] - As per Instructions
[2016-06-18 15:31] LABS: ALANINE AMINOTRANSFERASE 184 IU/L (21-72); ALBUMIN 2.7 g/dL (3.5-5.0); ALKALINE PHOSPHATASE 279 IU/L (38-126); ANION GAP 8 mEq/L (8-16); ASPARTATE AMINOTRANSFERASE 121 IU/L (17-59); BILIRUBIN,TOTAL 1.8 mg/dL (0.1-1.4); CARBON DIOXIDE 28 mEq/l (22-31); CHLORIDE 94 mEq/L (97-110); CREATININE 0.9 mg/dL (0.7-1.3); GLOMERULAR FILTRATION RATE > 60; GLUCOSE 95 mg/dL (70-100); POTASSIUM 4.6 mEq/L (3.5-5.2); SODIUM 130 mEq/L (134-144); TOTAL PROTEIN 6.3 g/dL (6.3-8.2)
--- NOTE | 2016-06-18 18:02 | PDCARPN ---
Cardiology Progress Note Chief Complaint: Patient reports shortness of breath, and right upper quadrant pain. Assessment/Plan: Assessment: 85-year-old male with known history CAD with prior CABG, ischemic cardiomyopathy with severely reduced LV systolic function, status post biventricular AICD, permanent atrial fibrillation, ventricular tachycardia. Admitted to the hospital June 10 with bleeding into a liver mass and hypotension. IR procedure done on 06/11/2016 with biopsy of liver and embolization. ProBNP on 06/14/2016 months [id number]. Echocardiogram done 06/14/2016 showed mild concentric LVH, diastolic dysfunction, EF of 35% with inferior and inferior lateral hypokinesis. RV was moderately dilated, LA is severely dilated , RA is moderately to severely dilated, mild MR, mild TR, RVSP estimated at 50 mm Hg, moderate AI, mild mild TR, no pericardial effusion. Since his IR procedure, he has been having bouts of hypotension, with periods during the hospitalization of holding his cardiac medications. Also for episodes of hypotension, he has received multiple IV fluid boluses post procedure. CT done on 06/17/2016 showed small volume acute thrombotic disease in left upper lobe. Hepatic cellular carcinoma found with biopsy. Today, patient's weight is been stable, denies of any worsening shortness of breath. Patient planning to be discharged. Him and his family her discussing possible palliative care in the future. Plan: 1. Hypotension: Improvement today. Systolic blood pressure running in 100's. Will continue holding Imdur. Consider restarting as an outpatient. 2. CAD: Denies of any chest pain or symptoms suggesting of ischemia. Continue on Carvedilol. Will hold his Imdur as above. Patient is statin intolerant. 3. Ischemic cardiomyopathy: Echo 06/14 showed EF 35%. Bi V pace. Continue on carvedilol, losartan and Aldactone. 4. Acute on chronic acute on chronic systolic heart failure: Patient weight is down 0.5 kilos. He has been restarted on home dose of Lasix. Reporting good output. Continue on home dose of Aldactone. Continue monitoring daily weights , electrolyte meds, renal function and magnesium. 5. PE: CT last evening showed small volume acute thrombotic disease in left upper lobe. Patient has refused Lovenox injections, but will start on Pradaxa. 6. Atrial fibrillation: Well rate controlled at current time. Continue on carvedilol and sotalol. Due to PE, patient has been started on Pradaxa ( reversible agent). 7. Bleeding and liver mass: Status post embolization status post embolization in Interventional Radiology. H&H stable. 8. Hepatic Cellular Carcinoma: Patient saw oncology today and will follow up with them next week to discuses all options 9. VT: None noted. Potassium and magnesium stable. Continue on current doses of carvedilol, sotalol, and mexiletine. Restart losartan. Patient has AICD. Patient to be discharged home today, went over all his cardiac medications. He has a follow-up appointment with Dr. Miller on Tuesday. He has been advised to monitor weight daily, notify our office if he gains more than 2 lb in a day or 5 lb in a week. 06/17/16 18:23 Subjective: Patient denies of any chest pressure, palpitations, near-syncope, or syncopal events. Denies of any therapeutic shocks from AICD. Reviewed/Discussed With: family (Patient and Daughter), hospitalist (Dr Lopez), other (Dr Tse) Objective: Vital Signs (8 Hrs) Pulse BP 06/18/16 13:07 115/57 L 06/18/16 13:04 63 115/57 L Intake/Output (24 Hrs) 06/17/16 06/18/16 06/19/16 05:59 05:59 05:59 Intake Total 1570 1090 Output Total 1550 1675 825 Balance 20 -585 -825 Intake: Oral (ml) 1570 1090 Output: Urine (ml) 1550 1675 825 Toilet 1400 Urinal 150 1675 825 Other: Weight 86.7 kg 86.75 kg Number of Voids Toilet 1 1 1 Urinal 1 2 Number of Stools Toilet 2 1 1 Result Diagrams: 06/18/16 03:18 06/18/16 14:50 - Physical Exam Constitutional: no apparent distress Ears, Nose, Mouth, Throat: moist mucous membranes Cardiovascular: regular rate and rhythm (100% ventricular paced.), pulses symmetric bilat, No carotid bruit Peripheral Pulses: 1+: dorsalis-pedis (R), dorsalis-pedis (L), 2+: carotid (R), carotid (L) Respiratory: other (Diminished in bases bilateral, no rhonchi, rales, or wheezing noted. No accessary muscle use, no intercostal muscle retraction noted. ) Gastrointestinal: normoactive bowel sounds Skin: warm, No no edema (Trace pedal edema bilateral lower extremities.) Neurologic: AAOx3 Psychiatric: cooperative, interactive ICD10 Worksheet Patient Problems: Problems Problem Status Onset Abdominal pain, epigastric Acute Afib Acute CHF (congestive heart failure) Acute Chest pain Acute Coronary artery disease Acute Hepatoma Acute Hyperkalemia Acute Ischemic cardiomyopathy Acute Palpitations Acute Urinary tract infection Acute Ventricular tachycardia Acute Ventricular tachycardia by electrocardiogram Acute
== END 2016-06-18 16:25 | disposition home or self-care (01) | DRG 987 ==
LOC: F2N 16:10 → F3E 06-14 17:14 → F2W 06-15 04:00
PROVIDERS: ADMIT Internal Medicine; ATTEND Family Medicine
PROC: 04L33DZ Occlusion of Hepatic Artery with Intraluminal Device, Percutaneous Approach (ICD-10-PCS; principal; 2016-06-11)
PROC: B4121ZZ Fluoroscopy of Hepatic Artery using Low Osmolar Contrast (ICD-10-PCS; principal; 2016-06-11)
PROC: 0FB13ZX Excision of Right Lobe Liver, Percutaneous Approach, Diagnostic (ICD-10-PCS; 2016-06-11)
DX: K76.89 Other specified diseases of liver (principal); C22.0 Liver cell carcinoma; I50.23 Acute on chronic systolic (congestive) heart failure; I47.2 Ventricular tachycardia; I26.99 Other pulmonary embolism without acute cor pulmonale; R18.8 Other ascites; I48.2 Chronic atrial fibrillation; I95.9 Hypotension, unspecified; D50.0 Iron deficiency anemia secondary to blood loss (chronic); I25.10 Atherosclerotic heart disease of native coronary artery without angina pectoris; K21.9 Gastro-esophageal reflux disease without esophagitis; N40.0 Benign prostatic hyperplasia without lower urinary tract symptoms; I25.5 Ischemic cardiomyopathy; E78.5 Hyperlipidemia, unspecified; I11.0 Hypertensive heart disease with heart failure; R11.0 Nausea; T42.6X5A Adverse effect of other antiepileptic and sedative-hypnotic drugs, initial encounter; Z79.01 Long term (current) use of anticoagulants; Z95.1 Presence of aortocoronary bypass graft; Z95.810 Presence of automatic (implantable) cardiac defibrillator; Z87.440 Personal history of urinary (tract) infections; Z85.820 Personal history of malignant melanoma of skin; Z66 Do not resuscitate
CPT/HCPCS: 86704-90; 97116-GP; 97161-GP; 97530-GP; A9503; C1769; C1894; G0472; G8978-GP-CJ; G8979-GP-CI; J1170; J1644; J2250; J2550; J3010; Q9967

== ENCOUNTER 2016-06-18 21:03 | Inpatient (IN) | payer OTHER ==
--- NOTE | 2016-06-18 21:46 | CPEKG ---
Heart Rate: 97 RR Interval: 619 P-R Interval: 140 QRSD Interval: 238 QT Interval: 464 QTC Interval: 590 P [place]: 0 QRS [place]: 162 T Wave [place]: -19 EKG Severity - ABNORMAL ECG - EKG Impression: VENTRICULAR-PACED COMPLEXES EKG Impression: RBBB AND LPFB EKG Impression: CONSIDER LEFT VENTRICULAR HYPERTROPHY Electronically Signed By: Marguerite Sargent 18-Jun-2016 23:06:26
--- NOTE | 2016-06-18 21:54 | EDPHY ---
H & P Time Seen by Provider: 06/18/16 21:21 HPI/ROS: CHIEF COMPLAINT: Palpitations HISTORY OF PRESENT ILLNESS: Patient is an 85-year-old male with multiple medical problems including ischemic cardiomyopathy, bleeding liver mass, paroxysmal ventricular tachycardia on Pradaxa. Patient was discharged from the hospital earlier today after being admitted for bleeding liver mass ( hepatocellular carcinoma). Patient has felt palpitations since returning home. This feels similar to his ventricular tachycardia in the past. He has had no AICD firing. The patient describes chest discomfort when he has the palpitations. This is not radiate. He has mild shortness of breath. No cough. No fevers or chills. No new abdominal pain. No nausea or vomiting. Patient does feel weak. REVIEW OF SYSTEMS: My complete review of systems is negative except as mentioned in the HPI. Past Medical/Surgical History: Includes bleeding liver mass, ischemic cardiomyopathy, atrial fibrillation, coronary artery disease, paroxysmal ventricular tachycardia, ascites, malignant melanoma, urinary tract infection, pulmonary embolus, BPH melanoma, hepatocellular carcinoma Past surgical history: Includes ablation, CABG, cholecystectomy, AICD placement , AAA repair, small-bowel resection, lysis of adhesions Smoking Status: Former smoker Physical Exam: Vitals noted GENERAL: No acute distress, alert. HEENT: Eyes normal to inspection, normal pharynx, no signs of dehydration. NECK: No thyromegaly, no lymphadenopathy, supple. RESPIRATORY: Clear to auscultation bilaterally, no rales, rhonchi or wheezing. CVS: Regular rate and rhythm, no rubs, or gallops. Mild murmur. Chest wall: No tenderness palpation. Sternotomy scar. Left anterior chest wall scar. AICD in place left chest ABDOMEN: Soft, nontender, nondistended, no organomegaly. Large midline surgical scar. BACK: Normal to inspection, no CVA tenderness. SKIN: Normal color, no rash, warm, dry. No pallor. EXTREMITIES: No pedal edema, no calf tenderness, no Homans sign or cords, no joint swelling. NEURO/PSYCH: Alert and oriented x3, normal mood and affect, normal motor sensory exam. No obvious cranial nerve deficit. Constitutional: Initial Vital Signs Temperature (C) 36.6 C 06/18/16 21:10 Heart Rate 71 06/18/16 21:10 Respiratory Rate 20 06/18/16 21:10 Blood Pressure 90/55 L 06/18/16 21:10 O2 Sat (%) 96 06/18/16 21:10 O2 Delivery Mode Nasal Cannula O2 (L/minute) 1 Allergies/Adverse Reactions: nitrofurantoin macrocrystalline [From Macrobid] Allergy (Mild, Verified 21:10) amiodarone Allergy (Verified 06/18/16 21:10) Other-Enter Comments aspirin Allergy (Verified 06/18/16 21:10) nitrofurantoin [From Macrobid] Allergy (Verified 06/18/16 21:10) Blpuuyn-Kbj-Klm Reductase Inhibitor Allergy (Verified 06/18/16 21:10) Home Medications: Medication Instructions Recorded Multivitamins [Multivitamin (*)] 1 each PO DAILY@12 07/09/14 Sotalol HCl [Betapace 80 MG (*)] 120 mg PO BID 07/09/14 Magnesium Hydroxide [Milk of 30 ml PO DAILY PRN #0 udcup 07/19/14 Magnesia (*)] Docusate Sodium [Colace 100 MG (*)] 100 mg PO BID PRN 03/20/15 Omeprazole [Prilosec 20 mg] 20 mg PO DAILY@12 PRN 03/20/15 Mexiletine HCl [Mexiletine HCl 150 150 mg PO BID #60 cap 03/27/15 mg (*)] Losartan Potassium [Cozaar 25 mg 12.5 mg PO DAILY@12 03/12/16 (*)] Rothschild-3 Fatty Acids [Fish Oil 1000 1,000 mg PO BID 03/12/16 mg (*)] Acetaminophen [Tylenol ES 500 mg 1,000 mg PO TID PRN 06/10/16 (*)] Bismuth Subsalicylate 15 ml PO Q3 06/10/16 [Pepto-Bismol oral liquid (*)] Calcium Carbonate [Tums 500MG (*)] 1,000 mg PO Q4 PRN 06/10/16 Carvedilol [Coreg] 6.25 mg PO DAILY@12 06/10/16 Carvedilol [Coreg] 12.5 mg PO BID 06/10/16 Simethicone [GAS-X] 80 - 160 mg PO QID PRN 06/10/16 Acetaminophen [Tylenol 325mg (*)] 650 mg PO Q4HRS PRN #0 tab 06/18/16 Dabigatran Etexilate Mesyl 150 mg PO BID #60 cap 06/18/16 [Pradaxa 150 MG (*)] Furosemide [Lasix 40 MG (*)] 80 mg PO DAILY #60 tab 06/18/16 Spironolactone [Aldactone 25 MG 25 mg PO BID #30 tab 06/18/16 (*)] Medical Decision Making ED Course/Re-evaluation: In the emergency department I discussed possible etiologies with the patient. EKG, chest x-ray and laboratory studies were ordered. I reviewed the patient's previous medical record. On the lunchroom monitor the patient appeared to have a paced rhythm. EKG: Ventricular paced rhythm at 97. We attempted to have the patient's AICD interrogated. I spoke with Dr. Douglass on the phone. He will interrogated the pacer tomorrow. Patient was noted to have numerous abnormal laboratory studies. Her sodium is low 130. This was been consistently low. Patient has elevated bilirubin. AST and ALT are also elevated. Alk-phos [place] [address]. This is up from 8000. Discussed the result with the patient. I answered all his questions. I subsequently spoke with the hospitalist service, Dr. Bustamante, who accepted the patient. Differential Diagnosis: My differential includes but is not limited to ventricular tachycardia, dysrhythmia, ACS, acute OH, electrolyte abnormality, sugar abnormality, anemia, dissection, aneurysm, pulmonary embolus, recurrent bleeding, malignancy - Data Points Laboratory Results: Laboratory Results 06/18/16 21:25 06/18/16 06/18/16 06/18/16 21:25 21:25 21:25 WBC Pending RBC Pending Hgb Pending Hct Pending MCV Pending MCH Pending MCHC Pending RDW Pending Plt Count Pending MPV Pending Neut % (Auto) Pending Lymph % (Auto) Pending Scott % (Auto) Pending Eos % (Auto) Pending Baso % (Auto) Pending Nucleat RBC Rel Count Pending Absolute Neuts (auto) Pending Absolute Lymphs (auto) Pending Absolute Monos (auto) Pending Absolute Eos (auto) Pending Absolute Basos (auto) Pending Absolute Nucleated RBC Pending Immature Gran % Pending Immature Gran # Pending PT 16.4 SEC H SEC (12.0-15.0) INR 1.32 H (0.83-1.16) APTT 37.1 SEC SEC (23.0-38.0) Sodium 130 mEq/L L mEq/L (134-144) Potassium 4.2 mEq/L mEq/L (3.5-5.2) Chloride 93 mEq/L L mEq/L (97-110) Carbon Dioxide 27 mEq/l mEq/l (22-31) Anion Gap 10 mEq/L mEq/L (8-16) BUN 29 mg/dL H mg/dL (7-23) Creatinine 1.0 mg/dL mg/dL (0.7-1.3) Estimated GFR > 60 Glucose 161 mg/dL H mg/dL (70-100) Calcium 8.4 mg/dL L mg/dL (8.5-10.4) Total Bilirubin 2.0 mg/dL H mg/dL (0.1-1.4) Conjugated Bilirubin 1.1 mg/dL H mg/dL (0.0-0.5) Unconjugated Bilirubin 0.9 mg/dL mg/dL (0.0-1.1) AST 126 IU/L H IU/L (17-59) ALT 183 IU/L H IU/L (21-72) Alkaline Phosphatase 319 IU/L H IU/L (38-126) Troponin I 0.027 ng/mL ng/mL (0-0.034) NT-Pro-B Natriuret Pep 82007 pg/mL H pg/mL (0-450) Total Protein 6.9 g/dL g/dL (6.3-8.2) Albumin 3.0 g/dL L g/dL (3.5-5.0) Lipase 104.0 IU/L IU/L (23-300) Medications Given: Discontinued Medications Sodium Chloride (Ns) 500 mls @ 0 mls/hr IV ONCE ONE PRN Reason: As Directed Stop: 06/18/16 22:06 Last Admin: 06/18/16 22:26 Dose: 500 mls Departure - Departure Disposition: [facility] Inpatient Acute Clinical Impression: Palpitations, Hyponatremia Anemia Qualifiers: Anemia type: unspecified type Qualified Code(s): D64.9 - Anemia, unspecified Condition: Good Referrals: Gabriella Arnett MD [Primary Care Provider] - As per Instructions
[2016-06-18] MEDS ORDERED: NS 500 ML IV ONE (22:05)
[2016-06-18 22:14] LABS: INR 1.32 (0.83-1.16); PROTIME(PATIENT) 16.4 SEC (12.0-15.0)
[2016-06-18 22:15] LABS: APTT 37.1 SEC (23.0-38.0)
[2016-06-18 22:17] LABS: ALANINE AMINOTRANSFERASE 183 IU/L (21-72); ALKALINE PHOSPHATASE 319 IU/L (38-126); ANION GAP 10 mEq/L (8-16); ASPARTATE AMINOTRANSFERASE 126 IU/L (17-59); BILIRUBIN-CONJUGATED 1.1 mg/dL (0.0-0.5); BILIRUBIN-UNCONJUGATED 0.9 mg/dL (0.0-1.1); CALCIUM 8.4 mg/dL (8.5-10.4); CARBON DIOXIDE 27 mEq/l (22-31); CHLORIDE 93 mEq/L (97-110); GLOMERULAR FILTRATION RATE > 60; GLUCOSE 161 mg/dL (70-100); POTASSIUM 4.2 mEq/L (3.5-5.2); SODIUM 130 mEq/L (134-144); TOTAL PROTEIN 6.9 g/dL (6.3-8.2)
[2016-06-18 22:23] LABS: % IMMATURE GRANULYOCYTES 1.2 % (0.0-1.1); ADD DIFF? NO; ADD MORPH? NO; ADD SCAN? YES; FRAGMENT RBC FLAG 0 (0-99); HEMATOCRIT 33.8 % (40.0-51.0); HEMOGLOBIN 11.4 g/dL (13.7-17.5); LEFT SHIFT FLG 10 (0-99); LIPEMIA HEMOLYSIS FLAG 80 (0-99); MEAN CELL HEMOGLOBIN 30.2 pg (27.9-34.1); MEAN CELL HEMOGLOBIN CONCENTR. 33.7 g/dL (32.4-36.7); MEAN CELL VOLUME 89.4 fL (81.5-99.8); MEAN PLATELET VOLUME 10.6 fL (8.7-11.7); PLATELET CLUMPS FLAG 0 (0-99); PLATELET COUNT 260 10^3/uL (150-400); RED BLOOD CELL COUNT 3.78 10^6/uL (4.40-6.38); RED CELL DISTRIBUTION WIDTH 14.3 % (11.5-15.2)
[2016-06-18 22:27] LABS: TROPONIN I 0.027 ng/mL (0-0.034)
[2016-06-18 22:28] LABS: ATYPICAL LYMPHOCYTE FLAG 120 (0-99)
[2016-06-18 22:59] LABS: SCAN NEGATIVE
[2016-06-19] MEDS ORDERED: POTASSIUM CL 20 MEQ/15 ML UDCUP PO ONE ×2 (00:37→10:02)
[2016-06-19] MEDS ORDERED: ACETAMINOPHEN 325 MG TAB PO PRN (00:40)
[2016-06-19] MEDS ORDERED: HYDROCODONE/APAP 5/325 TAB PO PRN (00:40)
[2016-06-19] MEDS ORDERED: ONDANSETRON 4 MG/2 ML VIAL IVP PRN (00:40)
[2016-06-19] MEDS ORDERED: BISMUTH SUBSALICYLATE 524 MG/30 ML UDL PO PRN (00:45)
[2016-06-19 05:12] LABS: INR 1.49 (0.83-1.16)
[2016-06-19 05:13] LABS: POTASSIUM 4.4 mEq/L (3.5-5.2)
[2016-06-19 05:14] LABS: ANION GAP 6 mEq/L (8-16); CALCIUM 8.1 mg/dL (8.5-10.4); CARBON DIOXIDE 27 mEq/l (22-31); CHLORIDE 99 mEq/L (97-110); CREATININE 0.8 mg/dL (0.7-1.3); GLOMERULAR FILTRATION RATE > 60; GLUCOSE 91 mg/dL (70-100); SODIUM 132 mEq/L (134-144)
[2016-06-19 05:21] LABS: APTT 51.1 SEC (23.0-38.0)
[2016-06-19 05:27] LABS: % IMMATURE GRANULYOCYTES 1.4 % (0.0-1.1); ADD DIFF? NO; ADD MORPH? NO; ADD SCAN? YES; FRAGMENT RBC FLAG 0 (0-99); HEMATOCRIT 30.3 % (40.0-51.0); LEFT SHIFT FLG 10 (0-99); LIPEMIA HEMOLYSIS FLAG 80 (0-99); MEAN CELL HEMOGLOBIN 29.4 pg (27.9-34.1); MEAN CELL VOLUME 89.1 fL (81.5-99.8); MEAN PLATELET VOLUME 10.1 fL (8.7-11.7); PLATELET CLUMPS FLAG 10 (0-99); PLATELET COUNT 195 10^3/uL (150-400); RED CELL DISTRIBUTION WIDTH 14.4 % (11.5-15.2)
[2016-06-19 05:29] LABS: ATYPICAL LYMPHOCYTE FLAG 110 (0-99)
[2016-06-19 07:05] LABS: SCAN POSITIVE
[2016-06-19 07:11] LABS: HYPOCHROMIA 1+; POLYCHROMASIA 1+
[2016-06-19 07:12] LABS: GIANT PLATELETS PRESENT; PLATELET ESTIMATE ADEQUATE (ADEQ)
--- NOTE | 2016-06-19 08:29 | PDGENHP ---
History and Physical - Chief Complaint palpitations - History of Present Illness Patient is an 85/M with CAD s/p CABG, ischemic cardiomyopathy EF 35% with AICD, ventricular tachycardia, atrial fibrillation, recently diagnosed hepatocellular carcinoma, complicated by bleeding liver mass requiring IR embolization during most recent hospitalization. Patient was admitted on 06/10 for the bleeding liver mass, hospitalization was complicated by an episode of ventricular tachycardia and newly discover RUL pulmonary embolism; bleeding was controlled with embolization, he was initiated on systemic anticoagulation for the PE and tachycardia was controlled with carvedilol and Sotalol and he was discharged home on the afternoon of 06/18. Patient states he felt well on the morning of discharge, he arrived home in the late afternoon and took a nap. He awoke for dinner, ate soup and then shortly after dinner reports feeling sustained palpitations. He denies associated chest pain or pressure, reports only feeling a generalized fatigue/weakness. He called his senior etl developer, who recommended he come back to the hospital for further evaluation. On arrival the ED patient was afebrile, hemodynamically stable. Labs revealed CBC at baseline, BMP wnl, transaminitis consistent with previous levels, indeterminant trop and elevated BNP. ED ppm interrogation was unsuccessful. EKG revealed ventricularly paced rhythm. He was then admitted for further management. History Information - Allergies/Home Medication List Allergies/Adverse Reactions: nitrofurantoin macrocrystalline [From Macrobid] Allergy (Mild, Verified 21:10) amiodarone Allergy (Verified 06/18/16 21:10) Other-Enter Comments aspirin Allergy (Verified 06/18/16 21:10) nitrofurantoin [From Macrobid] Allergy (Verified 06/18/16 21:10) Ptxvpvy-Vqj-Eeu Reductase Inhibitor Allergy (Verified 06/18/16 21:10) Home Medications: Multivitamins [Multivitamin (*)] 1 each PO DAILY@12 07/09/14 [Last Taken ] Sotalol HCl [Betapace 80 MG (*)] 120 mg PO BID 07/09/14 [Last Taken 06/10/16 09: 00] Docusate Sodium [Colace 100 MG (*)] 100 mg PO BID PRN 03/20/15 [Last Taken 03/12 09:00] Omeprazole [Prilosec 20 mg] 20 mg PO DAILY@12 PRN 03/20/15 [Last Taken 03/11/16] Losartan Potassium [Cozaar 25 mg (*)] 12.5 mg PO DAILY@12 03/12/16 [Last Taken 06/09/16] Acetaminophen [Tylenol ES 500 mg (*)] 1,000 mg PO TID PRN 06/10/16 [Last Taken Unknown] Bismuth Subsalicylate [Pepto-Bismol oral liquid (*)] 15 ml PO Q3 06/10/16 [Last Taken Unknown] Calcium Carbonate [Tums 500MG (*)] 1,000 mg PO Q4 PRN 06/10/16 [Last Taken Unknown] Carvedilol [Coreg] 6.25 mg PO DAILY@12 06/10/16 [Last Taken 06/10/16 08:00] Carvedilol [Coreg] 12.5 mg PO BID 06/10/16 [Last Taken 06/10/16 08:00] Simethicone [GAS-X] 80 - 160 mg PO QID PRN 06/10/16 [Last Taken Unknown] Herbals/Supplements -Info Only 1 ea PO DAILY 06/19/16 [Last Taken Unknown] I have personally reviewed and updated: family history, medical history, social history, surgical history - Past Medical History atrial fibrillation, coronary artery disease, cancer (malignant melanoma), CHF ( ischemic CM with EF of 15% and now 30%), hypertension, hyperlipidemia, liver disease (known liver mass, previously thought to be benign, as per HPI) Additional medical history: BPH. VT with VT storm requiring ablation. AAA - Surgical History Reports: coronary bypass surgery, cholecystectomy, pacemaker/AICD Additional surgical history: AAA repair. small bowel resection for SBO with HARRIS and bezoar - Family History Positive for: non-pertinent - Social History Smoking Status: Former smoker Additional social history: , lives independently with Review of Systems ROS: 10pt was reviewed & negative except for what was stated in HPI & below Physical Exam Temp Pulse Resp BP Pulse Ox 36.6 C 70 20 92/47 L 99 06/19/16 04:26 06/19/16 04:26 06/19/16 04:26 06/19/16 04:26 06/19/16 04:26 O2 (L/minute) 1 Constitutional: no apparent distress, appears nourished, not in pain Eyes: PERRL, anicteric sclera, EOMI Ears, Nose, Mouth, Throat: moist mucous membranes, hearing normal, ears appear normal, no oral mucosal ulcers Cardiovascular: regular rate and rhythym, systolic murmur, pulses symmetric bilaterally, No JVD, No edema Peripheral Pulses: 2+: dorsalis-pedis (R), dorsalis-pedis (L) Respiratory: no respiratory distress, no rales or rhonchi, clear to auscultation Gastrointestinal: normoactive bowel sounds, soft, non-tender abdomen, no palpable masses Genitourinary: no bladder fullness, no bladder tenderness Skin: warm, normal color, no rashes or abrasions, no fluctuance, no induration, No mottled Musculoskeletal: full muscle strength, no muscle tenderness, normal joint ROM, no joint effusions Neurologic: AAOx3, sensation intact bilaterally, CN II-XII Intact, No weakness, No numbness, No pronator drift, No facial droop Psychiatric: interacting appropriately, not anxious, not encephalopathic, thought process linear Lab Data & Imaging Review 06/19/16 03:59 06/19/16 03:59 WBC 6.96 10^3/uL (3.80-9.50) 06/19/16 03:59 RBC 3.40 10^6/uL (4.40-6.38) L 06/19/16 03:59 Hgb 10.0 g/dL (13.7-17.5) L 06/19/16 03:59 Hct 30.3 % (40.0-51.0) L 06/19/16 03:59 MCV 89.1 fL (81.5-99.8) 06/19/16 03:59 MCH 29.4 pg (27.9-34.1) 06/19/16 03:59 MCHC 33.0 g/dL (32.4-36.7) 06/19/16 03:59 RDW 14.4 % (11.5-15.2) 06/19/16 03:59 Plt Count 195 10^3/uL (150-400) D 06/19/16 03:59 MPV 10.1 fL (8.7-11.7) 06/19/16 03:59 Neut % (Auto) 73.9 % (39.3-74.2) 06/19/16 03:59 Lymph % (Auto) 10.6 % (15.0-45.0) L 06/19/16 03:59 Todd % (Auto) 12.9 % (4.5-13.0) 06/19/16 03:59 Eos % (Auto) 0.9 % (0.6-7.6) 06/19/16 03:59 Baso % (Auto) 0.3 % (0.3-1.7) 06/19/16 03:59 Nucleat RBC Rel Count 0.0 % (0.0-0.2) 06/19/16 03:59 Absolute Neuts (auto) 5.14 10^3/uL (1.70-6.50) 06/19/16 03:59 Absolute Lymphs (auto) 0.74 10^3/uL (1.00-3.00) L 06/19/16 03:59 Absolute Monos (auto) 0.90 10^3/uL (0.30-0.80) H 06/19/16 03:59 Absolute Eos (auto) 0.06 10^3/uL (0.03-0.40) 06/19/16 03:59 Absolute Basos (auto) 0.02 10^3/uL (0.02-0.10) 06/19/16 03:59 Absolute Nucleated RBC 0.00 10^3/uL (0-0.01) 06/19/16 03:59 Immature Gran % 1.4 % (0.0-1.1) H 06/19/16 03:59 Seg Neutrophils % 69 % 06/19/16 03:59 Band Neutrophils % 5 % 06/19/16 03:59 Lymphocytes % 16 % 06/19/16 03:59 Monocytes % 9 % 06/19/16 03:59 Myelocytes % 1 % 06/19/16 03:59 Immature Gran # 0.10 10^3/uL (0.00-0.10) 06/19/16 03:59 Absolute Seg Neuts 4.80 10^/uL (1.70-6.50) 06/19/16 03:59 Absolute Band Neuts 0.35 10^3/uL (0.00-0.70) 06/19/16 03:59 Absolute Lymphocytes 1.11 10^3/uL (1.00-3.00) 06/19/16 03:59 Absolute Monocytes 0.63 10^3/uL (0.30-0.80) 06/19/16 03:59 Absolute Myelocytes 0.07 10^3/mL (0.00-0.00) H 06/19/16 03:59 Platelet Estimate ADEQUATE (ADEQ) 06/19/16 03:59 Giant Platelets PRESENT H 06/19/16 03:59 Polychromasia 1+ H 06/19/16 03:59 Hypochromasia 1+ H 06/19/16 03:59 PT 18.0 SEC (12.0-15.0) H 06/19/16 03:59 INR 1.49 (0.83-1.16) H 06/19/16 03:59 APTT 51.1 SEC (23.0-38.0) H 06/19/16 03:59 Sodium 132 mEq/L (134-144) L 06/19/16 03:59 Potassium 4.4 mEq/L (3.5-5.2) 06/19/16 03:59 Chloride 99 mEq/L (97-110) 06/19/16 03:59 Carbon Dioxide 27 mEq/l (22-31) 06/19/16 03:59 Anion Gap 6 mEq/L (8-16) L 06/19/16 03:59 BUN 27 mg/dL (7-23) H 06/19/16 03:59 Creatinine 0.8 mg/dL (0.7-1.3) 06/19/16 03:59 Estimated GFR > 60 06/19/16 03:59 Glucose 91 mg/dL (70-100) 06/19/16 03:59 Calcium 8.1 mg/dL (8.5-10.4) L 06/19/16 03:59 Magnesium 2.0 mg/dL (1.6-2.3) 06/19/16 03:59 Total Bilirubin 2.0 mg/dL (0.1-1.4) H 06/18/16 21:25 Conjugated Bilirubin 1.1 mg/dL (0.0-0.5) H 06/18/16 21:25 Unconjugated Bilirubin 0.9 mg/dL (0.0-1.1) 06/18/16 21:25 AST 126 IU/L (17-59) H 06/18/16 21:25 ALT 183 IU/L (21-72) H 06/18/16 21:25 Alkaline Phosphatase 319 IU/L (38-126) H 06/18/16 21:25 Troponin I 0.030 ng/mL (0-0.034) 06/19/16 03:59 NT-Pro-B Natriuret Pep 98912 pg/mL (0-450) H 06/18/16 21:25 Total Protein 6.9 g/dL (6.3-8.2) 06/18/16 21:25 Albumin 3.0 g/dL (3.5-5.0) L 06/18/16 21:25 Lipase 104.0 IU/L (23-300) 06/18/16 21:25 Visualized and Interpreted Chest x-ray results: Yes Chest X-Ray results: other (possible effusions/edema) Visualized and Interpreted EKG results: Yes EKG additional interpertation: v-paced rhythm Assessment & Plan Assessment: Patient is an 85/M with ischemic cardiomyopathy, CAD, afib, Vtach, pulm HTN, HCC with recent intraabdominal bleeding and new PE who was discharged on 06/18 and returns on the evening after discharge with recurrent palpitations. ED work up is largely unrevealing for any acute change in labs or vital signs. Pending AICD interrogation. Plan: # palpitations, h/o Afib and Vtach On my evaluation, patient was asymptomatic and with normal VS. Patient reports taking all his prescribed PM meds after discharge home yesterday. Will need to interrogate AICD and f/u cardiology recommendations. Anticoagulted with pradaxa , will cont home coreg, sotalol and mexiletine. Will also continue to trend troponins, monitor on telemetry and monitor electrolytes with K goal > 5 and Mg > 2. # CAD with ischemic cardiomyopathy, EF 35% Patient denies chest pain, reports only above palpitations. Appears euvolemic. Troponin mildly elevated, will continue to trend. Will continue aldactone, coreg and lasix. # hepatocellular carcinoma with recent intra-hepatic bleeding H/H has remained stable, patient denies any abdominal pain. Will cont to monitor H/H and serial abdominal exams. If change, will consider re-imaging abdomen. LFTs are at previous levels, will cont to monitor. # chronic hypotension Appears to be at baseline/stable. Hold antihypertensives. # hx of: malignant melanoma, HTN, HLD, BPH # dispo: admit under observation, if AICD interrogation is unremarkable, may be discharged home Gen: Cardiac diet DVT ppx; on pradaxa DNR
[2016-06-19] MEDS ORDERED: SIMETHICONE 80 MG TAB CHEW PO PRN (09:17)
[2016-06-19] MEDS ORDERED: CALCIUM CARBONATE 500 MG CHEWABLE TAB PO PRN (09:17)
[2016-06-19] MEDS ORDERED: Herbals/Supplements -Info Only PO SCH (09:30)
[2016-06-19] MEDS: SPIRONOLACTONE 25 MG TAB PO SCH ×2 (10:04→20:25)
[2016-06-19] MEDS: FUROSEMIDE 40 MG TAB PO SCH (10:04)
[2016-06-19] MEDS: MEXILETINE HCL 150 MG CAP PO SCH ×2 (10:04→20:24)
[2016-06-19] MEDS: SOTALOL HCL 80 MG TAB PO SCH ×2 (10:04→20:24)
[2016-06-19] MEDS: DABIGATRAN ETEXILATE MESYL 150 MG CAP PO SCH ×2 (10:04→20:23)
[2016-06-19] MEDS: CARVEDILOL 6.25 MG TAB PO SCH ×2 (10:05→17:35)
[2016-06-19] MEDS ORDERED: CARVEDILOL 6.25 MG TAB PO SCH (12:00)
[2016-06-19] MEDS: PANTOPRAZOLE SODIUM 40 MG TAB PO SCH (12:09)
[2016-06-19] MEDS: MULTIVITAMINS 1 EACH TAB PO SCH (12:09)
[2016-06-19] MEDS: LOSARTAN POTASSIUM 25 MG TAB PO SCH (12:26)
[2016-06-19] MEDS: BISMUTH SUBSALICYLATE 524 MG/30 ML UDL PO PRN (13:44)
--- NOTE | 2016-06-19 15:06 | SOAPPROG ---
JACINDA Progress Note Assessment/Plan: E&M HCC * hepatocellucar carcinoma with recent intra-hepatic bleeding: s/p embolization ; H/H stable. After discharge, he is to see Dr. Gutierrez to potentially set up [id number]. No new recs at this time. Subjective: Patient went home yesterday but came back with palpitations. No bleeding. Feeling tired but no chest pain Objective: Vital Signs Temp Pulse Resp BP Pulse Ox 36.6 C 71 16 140/49 H 92 06/19/16 12:00 06/19/16 12:30 06/19/16 12:00 06/19/16 12:30 06/19/16 12:30 Laboratory Results 06/19/16 03:59 06/19/16 03:59 06/18/16 06/19/16 06/20/16 05:59 05:59 05:59 Intake Total 500 Output Total 75 400 Balance 425 -400 PT 18.0 SEC (12.0-15.0) H 06/19/16 03:59 INR 1.49 (0.83-1.16) H 06/19/16 03:59 Physical Exam - Physical Exam General Appearance: no apparent distress Cardiac/Chest: regular rate, rhythm Abdomen: non-tender, soft ICD10 Worksheet Patient Problems: Problems Problem Status Onset Anemia Acute Hyponatremia Acute Palpitations Acute Abdominal pain, epigastric Acute Afib Acute CHF (congestive heart failure) Acute Chest pain Acute Coronary artery disease Acute Hepatoma Acute Hyperkalemia Acute Ischemic cardiomyopathy Acute Palpitations Acute Urinary tract infection Acute Ventricular tachycardia Acute Ventricular tachycardia by electrocardiogram Acute
--- NOTE | 2016-06-19 15:48 | HOSPPROG ---
Hospitalist Progress Note Assessment/Plan: #Concern for VT: [employer] interrogated and showed 40 sec nonsustained VT. Intermittently going into VT here and then back to paced rhythm in 70s -K and Mg at goal. Will keep K closer to 5 -spoke with Dr. Conley. No changes in medications at this time. patient not a candidate for VT ablation given new diagnosis of HCC -cont Sotalol, Mexiletine, Coreg #Atrial fibrillation: Pradaxa #CAD: statin #Compensated ischemic cardiomyopathy: EF 35%: cont Coreg, Lasix, aldactone #HCC with recent intrahepatic bleed: H/H stable #Goals: in speaking with cardiology, broaching patient about Hospice seems reasonable given multiple comorbidities. I will try to initiate this topic Subjective: Pt denies CP, palpitations today Objective: Vital Signs Temp Pulse Resp BP Pulse Ox 36.6 C 71 16 140/49 H 92 06/19/16 12:00 06/19/16 12:30 06/19/16 12:00 06/19/16 12:30 06/19/16 12:30 Laboratory Results 06/19/16 03:59 06/19/16 03:59 06/18/16 06/19/16 06/20/16 05:59 05:59 05:59 Intake Total 500 Output Total 75 580 Balance 425 -580 PT 18.0 SEC (12.0-15.0) H 06/19/16 03:59 INR 1.49 (0.83-1.16) H 06/19/16 03:59 - Physical Exam Constitutional: no apparent distress Eyes: PERRL Ears, Nose, Mouth, Throat: moist mucous membranes Cardiovascular: regular rate and rhythym Respiratory: no respiratory distress, reduced air movement (mildly reduced at bases) Skin: warm Musculoskeletal: full muscle strength Neurologic: AAOx3, CN II-XII Intact ICD10 Worksheet Patient Problems: Problems Problem Status Onset Anemia Acute Hyponatremia Acute Palpitations Acute Abdominal pain, epigastric Acute Afib Acute CHF (congestive heart failure) Acute Chest pain Acute Coronary artery disease Acute Hepatoma Acute Hyperkalemia Acute Ischemic cardiomyopathy Acute Palpitations Acute Urinary tract infection Acute Ventricular tachycardia Acute Ventricular tachycardia by electrocardiogram Acute
[2016-06-19] MEDS: MAGNESIUM HYDROXIDE 30 ML UDCUP PO PRN (17:30)
[2016-06-19] MEDS: DOCUSATE SODIUM 100 MG CAP PO PRN (20:25)
[2016-06-20] MEDS: MAGNESIUM HYDROXIDE 30 ML UDCUP PO PRN (02:25)
[2016-06-20 05:51] LABS: ANION GAP 8 mEq/L (8-16); CALCIUM 8.4 mg/dL (8.5-10.4); CARBON DIOXIDE 25 mEq/l (22-31); CHLORIDE 97 mEq/L (97-110); CREATININE 0.8 mg/dL (0.7-1.3); GLOMERULAR FILTRATION RATE > 60; GLUCOSE 95 mg/dL (70-100); MAGNESIUM 2.1 mg/dL (1.6-2.3); POTASSIUM 5.1 mEq/L (3.5-5.2); SODIUM 130 mEq/L (134-144)
[2016-06-20] MEDS: DOCUSATE SODIUM 100 MG CAP PO PRN (07:40)
[2016-06-20] MEDS: CARVEDILOL 6.25 MG TAB PO SCH ×2 (07:40→19:21)
[2016-06-20] MEDS: FUROSEMIDE 40 MG TAB PO SCH (07:41)
[2016-06-20] MEDS: MEXILETINE HCL 150 MG CAP PO SCH ×2 (07:41→21:19)
[2016-06-20] MEDS: DABIGATRAN ETEXILATE MESYL 150 MG CAP PO SCH ×2 (07:41→21:19)
[2016-06-20] MEDS: SOTALOL HCL 80 MG TAB PO SCH ×2 (09:32→22:32)
[2016-06-20] MEDS: SPIRONOLACTONE 25 MG TAB PO SCH ×2 (11:06→22:33)
--- NOTE | 2016-06-20 11:46 | SOAPPROG ---
JACINDA Progress Note Assessment/Plan: Assessment: 85 y/o man with CAD s/p CABG x 4V in 1993 with chronic ischemic systolic CHF with LVEF 35% and malignant VT s/p VT ablations, AICD on chronic PO Mexitilene and Sotolol now with metastatic liver cancer and recurrent slow VT at 120bpm. Last cath 04/01 showed 2 of 4 bypass grafts open (patent JAY to LAD and SVG to OM) and echo 06/04 showed LVEF 35% with mild AI and MR with moderate to severe TR with estimated PAS 50mmHg. He is short of breath at rest here and has RUQ pain. Denies palpitations last 36hrs or CP or PND. I discussed honestly with pt and his I am not sure we can stop the VT from recurring even with normal to high normal potassium levels. I think his life expectancy is 1-3 months with his in total medical issues. They understood our conversation and appreciated the honest assessment. PLAN: 1)Lasix 40mg IV x one as currently about 5lbs above dry weight and short of breath at rest. 2)change Coreg to 18.75mg PO BID with no noon dose. 3)Palliative care consult Tuesday AM and potentially home Tuesday afternoon or Tuesday with home hospice care involved. 4)await Dr. العلي's opinion's on prognosis too. Time with pt and 45 minutes. 06/20/16 11:40 Subjective: short of breath at rest. Has RUQ pain. Denies CP, PND or lightheadedness. Objective: Vital Signs Temp Pulse Resp BP Pulse Ox 36.4 C 70 19 97/47 L 99 06/20/16 08:00 06/20/16 08:00 06/20/16 08:00 06/20/16 08:00 06/20/16 08:00 Laboratory Results 06/19/16 03:59 06/20/16 04:19 06/19/16 06/20/16 06/21/16 05:59 05:59 05:59 Intake Total 500 920 300 Output Total 75 780 175 Balance 425 140 125 PT 18.0 SEC (12.0-15.0) H 06/19/16 03:59 INR 1.49 (0.83-1.16) H 06/19/16 03:59 Physical Exam - Physical Exam General Appearance: alert EENT: PERRL/EOMI Neck: non-tender Respiratory: crackles (Right base>>> left base.) Cardiac/Chest: regular rate, rhythm, gallop, JVD, systolic murmur Peripheral Pulses: 1+: femoral (R), femoral (L), dorsalis-pedis (R), dorsalis- pedis (L), 2+: carotid (R), carotid (L) Abdomen: normal bowel sounds, organomegaly Skin: warm/dry Extremities: pedal edema (1+ bilateral pretibial edema.) Neuro/Psych: alert ICD10 Worksheet Patient Problems: Problems Problem Status Onset Anemia Acute Hyponatremia Acute Palpitations Acute Abdominal pain, epigastric Acute Afib Acute CHF (congestive heart failure) Acute Chest pain Acute Coronary artery disease Acute Hepatoma Acute Hyperkalemia Acute Ischemic cardiomyopathy Acute Palpitations Acute Urinary tract infection Acute Ventricular tachycardia Acute Ventricular tachycardia by electrocardiogram Acute
[2016-06-20] MEDS ORDERED: FUROSEMIDE 40 MG/4 ML VIAL IVP ONE (11:47)
[2016-06-20] MEDS: PANTOPRAZOLE SODIUM 40 MG TAB PO SCH (12:14)
[2016-06-20] MEDS: LOSARTAN POTASSIUM 25 MG TAB PO SCH (13:00)
[2016-06-20] MEDS: MULTIVITAMINS 1 EACH TAB PO SCH (13:00)
--- NOTE | 2016-06-20 14:20 | HOSPPROG ---
Hospitalist Progress Note Assessment/Plan: #VT: due to underlying ischemic heart disease and malignancy. Optimized on Sotalol, Mexiletine and Coreg. -Appreciate Dr. Conley consultation. Increased Coreg to 18.5mg. K and Mg at goal. Will keep K closer to 5 #Atrial fibrillation: Pradaxa, Coreg #Mildly decompensated systolic HF: give IV lasix today, cont Aldactone #CAD: statin, BB #Compensated ischemic cardiomyopathy: EF 35%: cont Coreg, Lasix, aldactone #HCC with recent intrahepatic bleed: H/H stable. Possible embolization. Sorenib is palliative chemo and likely cause more harm than benefit #Goals:Dr. Conley spoke with pt and today and broached hospice, stating he likely has 3 months to live given cardiac issues and malignancy. I attempted to sit with patient and to further discuss Hospice this afternoon, but family visiting and they would like to talk in morning before Palliative Care consult. Subjective: feels tired and SOB today Objective: Vital Signs Temp Pulse Resp BP Pulse Ox 36.6 C 71 20 97/45 L 98 06/20/16 12:04 06/20/16 12:04 06/20/16 12:04 06/20/16 13:00 06/20/16 12:04 Laboratory Results 06/19/16 03:59 06/20/16 04:19 06/19/16 06/20/16 06/21/16 05:59 05:59 05:59 Intake Total 500 920 300 Output Total 75 780 175 Balance 425 140 125 PT 18.0 SEC (12.0-15.0) H 06/19/16 03:59 INR 1.49 (0.83-1.16) H 06/19/16 03:59 - Physical Exam Constitutional: chronically ill appearing Eyes: PERRL Ears, Nose, Mouth, Throat: moist mucous membranes, hearing normal Cardiovascular: regular rate and rhythym, no murmur, rub, or gallop Respiratory: reduced air movement (dull at bases) Gastrointestinal: normoactive bowel sounds, soft, non-tender abdomen Genitourinary: no bladder fullness Skin: warm Musculoskeletal: full muscle strength Neurologic: AAOx3, sensation intact bilaterally, CN II-XII Intact Psychiatric: interacting appropriately ICD10 Worksheet Patient Problems: Problems Problem Status Onset Anemia Acute Hyponatremia Acute Palpitations Acute Abdominal pain, epigastric Acute Afib Acute CHF (congestive heart failure) Acute Chest pain Acute Coronary artery disease Acute Hepatoma Acute Hyperkalemia Acute Ischemic cardiomyopathy Acute Palpitations Acute Urinary tract infection Acute Ventricular tachycardia Acute Ventricular tachycardia by electrocardiogram Acute
--- NOTE | 2016-06-20 14:45 | SOAPPROG ---
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 D/W him and family about prognosis which without therapy probably on average about 3 mo. Therapy might extend that a little. Probably has metastatic disease outside the liver but small volume. He might benefit from bland embolization or Yettrium-90. We can see if Dr. Singh can talk to him before he is discharged. Only systemic therapy is sorafenib, which can have significant side effects and not curative. He is meeting with palliative care tomorrow. Subjective: No acute complaints. Pt's and daughter with him. Objective: Vital Signs Temp Pulse Resp BP Pulse Ox 36.6 C 71 20 97/45 L 98 06/20/16 12:04 06/20/16 12:04 06/20/16 12:04 06/20/16 13:00 06/20/16 12:04 Laboratory Results 06/19/16 03:59 06/20/16 04:19 06/19/16 06/20/16 06/21/16 05:59 05:59 05:59 Intake Total 500 920 300 Output Total 75 780 175 Balance 425 140 125 PT 18.0 SEC (12.0-15.0) H 06/19/16 03:59 INR 1.49 (0.83-1.16) H 06/19/16 03:59 CT Chest, With Contrast Impression: 1. Small volume acute thromboembolic disease in the left upper lobe. 2. Enlarged lymph nodes in the mediastinum and right cardiophrenic angle are mildly suspicious for metastatic disease. 3. Query metastatic pleural disease in the right hemithorax with increasing right pleural effusion. 4. Worsening right basilar atelectasis is likely related to inflammatory process incited by recent transarterial chemoembolization of large mass in right lobe of the liver. 5. Sclerotic lesion in the right 8th rib is indeterminate for metastatic disease. No other bone lesions. 6. Right heart dysfunction and features of previous coronary artery bypass grafting. Comment: The left upper lobe pulmonary embolism was communicated to Dr. Gutierrez via the answering service shortly after study completion. E:amm Dictated By: Dick Miranda MD Nuclear Medicine Whole Body Bone Scan Impression: 1. The sclerotic lesion associated with the right lateral eighth rib is radiotracer-avid, consistent with the site of metastatic disease. 2. Subtle asymmetric activity associated with the anterior portion of the left eighth rib may be related to some costochondral inflammation, with no metastatic lesion observed on CT correlative imaging. 3. No other suspicious activity to suggest osseous metastatic disease. Dictated By: Preston Meyer MD - Time Spent With Patient Time Spent With Patient: >35 min Physical Exam - Physical Exam General Appearance: no apparent distress ICD10 Worksheet Patient Problems: Problems Problem Status Onset Anemia Acute Hyponatremia Acute Palpitations Acute Abdominal pain, epigastric Acute Afib Acute CHF (congestive heart failure) Acute Chest pain Acute Coronary artery disease Acute Hepatoma Acute Hyperkalemia Acute Ischemic cardiomyopathy Acute Palpitations Acute Urinary tract infection Acute Ventricular tachycardia Acute Ventricular tachycardia by electrocardiogram Acute
[2016-06-20] MEDS: ACETAMINOPHEN 325 MG TAB PO PRN (18:22)
[2016-06-21 05:30] LABS: HEMATOCRIT 32.2 % (40.0-51.0); HEMOGLOBIN 10.6 g/dL (13.7-17.5); MEAN CELL HEMOGLOBIN 29.4 pg (27.9-34.1); MEAN CELL HEMOGLOBIN CONCENTR. 32.9 g/dL (32.4-36.7); MEAN CELL VOLUME 89.4 fL (81.5-99.8); RED BLOOD CELL COUNT 3.6 10^6/uL (4.40-6.38); RED CELL DISTRIBUTION WIDTH 14.3 % (11.5-15.2)
[2016-06-21 05:39] LABS: ALANINE AMINOTRANSFERASE 126 IU/L (21-72); ALBUMIN 2.7 g/dL (3.5-5.0); ALKALINE PHOSPHATASE 299 IU/L (38-126); ANION GAP 10 mEq/L (8-16); ASPARTATE AMINOTRANSFERASE 98 IU/L (17-59); BILIRUBIN,TOTAL 1.9 mg/dL (0.1-1.4); CALCIUM 8.3 mg/dL (8.5-10.4); CARBON DIOXIDE 29 mEq/l (22-31); CHLORIDE 93 mEq/L (97-110); CREATININE 0.9 mg/dL (0.7-1.3); GLOMERULAR FILTRATION RATE > 60; GLUCOSE 80 mg/dL (70-100); POTASSIUM 4.5 mEq/L (3.5-5.2); SODIUM 132 mEq/L (134-144); TOTAL PROTEIN 6.5 g/dL (6.3-8.2)
[2016-06-21] MEDS: ACETAMINOPHEN 325 MG TAB PO PRN (07:35)
[2016-06-21] MEDS: DABIGATRAN ETEXILATE MESYL 150 MG CAP PO SCH (07:36)
[2016-06-21] MEDS: MEXILETINE HCL 150 MG CAP PO SCH (07:36)
[2016-06-21] MEDS: SOTALOL HCL 80 MG TAB PO SCH (07:37)
[2016-06-21] MEDS: CARVEDILOL 6.25 MG TAB PO SCH (07:38)
[2016-06-21] MEDS: SPIRONOLACTONE 25 MG TAB PO SCH (07:38)
[2016-06-21] MEDS ORDERED: FUROSEMIDE 80 MG TAB PO SCH (09:00)
[2016-06-21] MEDS: MULTIVITAMINS 1 EACH TAB PO SCH (11:05)
[2016-06-21] MEDS: LOSARTAN POTASSIUM 25 MG TAB PO SCH (11:05)
[2016-06-21] MEDS: PANTOPRAZOLE SODIUM 40 MG TAB PO SCH (11:06)
--- NOTE | 2016-06-21 11:38 | HOSPPROG ---
Hospitalist Progress Note Assessment/Plan: #VT: due to underlying ischemic heart disease and malignancy. Optimized on Sotalol, Mexiletine and Coreg. -Appreciate Dr. Conley consultation. Increased Coreg to 18.5mg. K and Mg at goal. Will keep K closer to 5 #Atrial fibrillation: Pradaxa, Coreg #Mildly decompensated systolic HF: give IV lasix today, cont Aldactone #CAD: statin, BB #Compensated ischemic cardiomyopathy: EF 35%: cont Coreg, Lasix, aldactone #HCC with recent intrahepatic bleed: H/H stable. Possible embolization. Sorenib is palliative chemo and likely cause more harm than benefit #Left upper lobe PE: incidental finding on recent CT. Patient opted to be on Pradaxa despite recent intrahepatic bleed #Goals: patient and family aware of poor prognosis; <6 months to live. Palliative Care team evaluated today and patient agreeable to hospice. [facility] to evaluate tomorrow Subjective: feels tired Objective: Vital Signs Temp Pulse Resp BP Pulse Ox 36.4 C 99 16 86/46 L 96 06/21/16 08:00 06/21/16 11:12 06/21/16 11:12 06/21/16 11:12 06/21/16 11:12 Laboratory Results 06/21/16 04:02 06/21/16 04:02 06/20/16 06/21/16 06/22/16 05:59 05:59 05:59 Intake Total 300 240 Output Total 650 75 Balance -350 165 PT 18.0 SEC (12.0-15.0) H 06/19/16 03:59 INR 1.49 (0.83-1.16) H 06/19/16 03:59 - Physical Exam Constitutional: chronically ill appearing Eyes: PERRL Ears, Nose, Mouth, Throat: moist mucous membranes, hearing normal Cardiovascular: regular rate and rhythym Respiratory: reduced air movement Skin: warm Musculoskeletal: full muscle strength Neurologic: AAOx3 ICD10 Worksheet Patient Problems: Problems Problem Status Onset Abdominal pain, epigastric Acute Afib Acute Anemia Acute CHF (congestive heart failure) Acute Chest pain Acute Coronary artery disease Acute Hepatoma Acute Hyperkalemia Acute Hyponatremia Acute Ischemic cardiomyopathy Acute Palliative care encounter Acute Palpitations Acute Palpitations Acute Urinary tract infection Acute Ventricular tachycardia Acute Ventricular tachycardia by electrocardiogram Acute
--- NOTE | 2016-06-21 12:03 | PDIAF ---
- Diagnosis Code Status: Do Not Resuscitate - Medication Management Discharge Medications: Medications to Continue on Transfer Multivitamins [Multivitamin (*)] 1 each PO DAILY@12 07/09/14 [Last Taken ] Sotalol HCl [Betapace 80 MG (*)] 120 mg PO BID 07/09/14 [Last Taken 06/18/16] Magnesium Hydroxide [Milk of Magnesia (*)] 30 ml PO DAILY PRN #0 udcup 07/19/14 [Last Taken 04/29/15] Docusate Sodium [Colace 100 MG (*)] 100 mg PO BID PRN 03/20/15 [Last Taken 03/12 09:00] Omeprazole [Prilosec 20 mg] 20 mg PO DAILY@12 03/20/15 [Last Taken 06/18/16] Mexiletine HCl [Mexiletine HCl 150 mg (*)] 150 mg PO BID #60 cap 03/27/15 [Last Taken 06/18/16] Losartan Potassium [Cozaar 25 mg (*)] 12.5 mg PO DAILY@12 03/12/16 [Last Taken 06/18/16] Acetaminophen [Tylenol ES 500 mg (*)] 1,000 mg PO TID PRN 06/10/16 [Last Taken Unknown] Bismuth Subsalicylate [Pepto-Bismol oral liquid (*)] 15 ml PO Q3 PRN 06/10/16 [ Last Taken 06/18/16] Carvedilol [Coreg] 6.25 mg PO DAILY@12 06/10/16 [Last Taken 06/18/16] Carvedilol [Coreg] 12.5 mg PO BID 06/10/16 [Last Taken 06/18/16] Simethicone [GAS-X] 80 - 160 mg PO QID PRN 06/10/16 [Last Taken Unknown] Acetaminophen [Tylenol 325mg (*)] 650 mg PO Q4HRS PRN #0 tab 06/18/16 [Last Taken Unknown] Dabigatran Etexilate Mesyl [Pradaxa 150 MG (*)] 150 mg PO BID #60 cap 06/18/16 [ Last Taken 06/18/16] Furosemide [Lasix 40 MG (*)] 80 mg PO DAILY #60 tab 06/18/16 [Last Taken ] Spironolactone [Aldactone 25 MG (*)] 25 mg PO BID #30 tab 06/18/16 [Last Taken 06/18/16] Herbals/Supplements -Info Only 1 ea PO DAILY 06/19/16 [Last Taken Unknown] Calcium Carbonate [Tums 500MG (*)] 1,000 mg PO Q4 PRN #0 tab.chew 06/20/16 [ Last Taken Unknown] Discharge Medications: Refer to the Discharge Home Medication list for PRN reason. - Orders Services needed: Registered Nurse, Certified Plasterer Spot, Master Roof Service Technician - Follow Up Care Current Providers and Referrals: Gabriella Arnett MD [Primary Care Provider] - As per Instructions
[2016-06-21] MEDS: BISMUTH SUBSALICYLATE 524 MG/30 ML UDL PO PRN (12:37)
[2016-06-21 12:55] VITALS: BP 83/45; PULSE 84; RESP 18; TEMP 97.9; O2SAT 97
--- NOTE | 2016-06-21 15:58 | PDPCPN ---
Palliative Care Progress Note Assessment/Plan: Referring provider: Dr Saravia Reason for consult: Complex medical decision making Symptom control HPI: Jerson Beasley is an 85 yo male with PMH CAD s/p CABG, PE, EF 35% with AICD, and HCC with bone mets admitted to the hospital with palpitations. Recent discharge for bleeding s/p liver embolization and new dx of PE. During last admission work up for vtach and palpitations negative for acute cause likely related to known CHF and HCC. Medically optimized on medications. Cardiology and oncology involved. Palliative care consulted for complex medical decision making. Met with Jerson, Izzy, and his daughter at the bedside today. Jerson explained he hates being in the hospital and understands his prognosis is poor likely a couple of months. He states what is most important to him is being around his family at home and finishing working on his projects. 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 He is feeling generally ok except when he is having heart palpitations and then feels SOB and weak. These episodes seem to last about 2 hours and occur every couple of days. He is really not interested in pursueing further medical interventions for his HCC as he prefers to be at home with the time he has left remaining. His family would like to speak with IR to learn more information but are supportive of any decision Jerson makes. We discussed options of care at home including hospice care based on his wish for no further life prolonging treatments and to be at home and allow for natural course of disease. They are interested in meeting with [facility] as they have used them for bereavement support after 2 of their sons . Assessment: Physical: - Pain: none - tylenol PRN - Dyspnea: during vtach episodes - morphine in low doses can help with dyspnea - oxygen as needed - continue cardiac meds to help with v tach - constipation - at risk if using opiates - bowel regimen with senna and colace Emotional/psychological: a lot of support from family. Advanced Care Planning: Is patient decisional?: Yes Code Status: DNR POA: Izzy is MDPOA. Plan: Patient would like to meet with [facility]. He is also interested in hearing from IR. Subjective: I'm having some trouble breathing Objective: Social History: to [place] for 63 years. From [place]. 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 Medication list reviewed ROS: General: fatigue, weakness, weight loss ENT: negative Resp: dyspnea GI: negative : negative MS: negative Skin: negative Neuro: negative Psych: negative Functional assessment: PPS: 50% Functional status: needs assistance with ADls Vital Signs Temp Pulse Resp BP Pulse Ox 36.6 C 84 18 83/45 L 97 06/21/16 12:00 06/21/16 12:00 06/21/16 12:00 06/21/16 12:00 06/21/16 12:00 Laboratory Results 06/21/16 04:02 06/21/16 04:02 06/20/16 06/21/16 06/22/16 05:59 05:59 05:59 Intake Total 300 240 Output Total 650 75 Balance -350 165 PT 18.0 SEC (12.0-15.0) H 06/19/16 03:59 INR 1.49 (0.83-1.16) H 06/19/16 03:59 Physical Exam - Physical Exam General Appearance: alert, no apparent distress Respiratory: No respiratory distress, No accessory muscle use Skin: normal color, warm/dry Extremities: No pedal edema Neuro/Psych: alert, oriented x 3 ICD10 Worksheet Patient Problems: Problems Problem Status Onset Abdominal pain, epigastric Acute Afib Acute Anemia Acute CHF (congestive heart failure) Acute Chest pain Acute Coronary artery disease Acute Hepatoma Acute Hyperkalemia Acute Hyponatremia Acute Ischemic cardiomyopathy Acute Palliative care encounter Acute Palpitations Acute Palpitations Acute Urinary tract infection Acute Ventricular tachycardia Acute Ventricular tachycardia by electrocardiogram Acute - ICD10 Problem Qualifiers (1) Palliative care encounter
--- NOTE | 2016-06-21 17:07 | GDS ---
DISCHARGE DIAGNOSES: 1. Coronary artery disease, status post coronary artery bypass grafting. 2. Ischemic cardiomyopathy, ejection fraction 35% with automatic implantable cardioverter-defibrillator. 3. Slow ventricular tachycardia. 4. Atrial fibrillation. 5. Recent diagnosis of hepatocellular carcinoma, complicated by bleeding liver mass requiring Interventional Radiology embolization. 6. Incidental left upper lobe pulmonary embolism diagnosed at last hospitalization. 7. Benign hypertension. 8. Hyperlipidemia. 9. BPH. 10. Abdominal aortic aneurysm. HPI: Patient is an 85-year-old male with history of CAD status post CABG, ischemic cardiomyopathy with an AICD, ventricular tachycardia, who was recently hospitalized and diagnosed with hepatocellular carcinoma. This was complicated by a bleeding liver mass requiring IR embolization. He was recently admitted for this new bleeding liver mass. At that time, he had an episode of VT and a newly discovered left upper lobe pulmonary embolism. He was started on Pradaxa for systemic anticoagulation, and had good rate control with Coreg and sotalol. He was discharged on the afternoon of 06/18 feeling fine. When he went home, he took a nap, awoke, ate dinner, and then felt sustained palpitation for an hour. He denied chest pain or pressure, just felt generalized weakness and fatigue. He called his computer compositor, who recommended he come back to the emergency room. HOSPITAL COURSE BY PROBLEM: 1. Slow ventricular tachycardia: Suspect this is multifactorial given underlying ischemic heart disease and new malignancy. Patient's pacer was interrogated in the emergency room and demonstrated 40 seconds of VT. At this point, he is optimized on sotalol, mexiletine, and Coreg. He was evaluated by Dr. Conley with Cardiology. He is not a candidate for ablation given other comorbidities, including newly diagnosed malignancy and recent liver bleed. Patient is to continue these medications. Potassium to be kept closer to 5. 2. Atrial fibrillation: Continue Coreg and Pradaxa. 3. Mildly decompensated heart failure: Patient was diuresed with IV Lasix here. He is to continue home Lasix and Aldactone. 4. CAD: Continue statin and beta-vincent. 5. HCC with recent intrahepatic bleed: H and H were stable here. Patient is being followed by Oncology, who suggested possible IR embolization. Patient and family would like to speak with Dr. Singh, who helped with his prior embolization. She is not here until Tuesday. I provided family with the number to call her on Tuesday. 6. Left upper lobe pulmonary embolism: This is an incidental finding on CT recently. Patient did opt to be treated with Pradaxa despite recent intrahepatic bleed. H and H remained stable here. GOALS: I had several extensive conversations with the patient and family regarding Hospice, along with Dr. Conley, and the Palliative Care team here. Patient is well aware that he has less than 6 months to live. I stressed the importance of quality and comfort, and for him to really consider any intervention or new medication at this time as there are side effects with any of the above. [facility] will evaluate him at home today. MEDICATIONS: New medications: Coreg 6.25 mg b.i.d., potassium 20 mEq daily. Time spent on discharge greater than 90 minutes coordinating with Cardiology, Palliative Care, and counseling family and patient on Hospice and medications. /[id number]/MODL MTDD
== END 2016-06-21 14:19 | disposition hospice, home (50) | DRG 308 ==
LOC: F2W 23:53 → OBSVTOIN 06-20 14:17
PROVIDERS: ADMIT Internal Medicine; ATTEND Internal Medicine
DX: I47.2 Ventricular tachycardia (principal); I26.99 Other pulmonary embolism without acute cor pulmonale; I50.23 Acute on chronic systolic (congestive) heart failure; C22.0 Liver cell carcinoma; I25.5 Ischemic cardiomyopathy; I25.10 Atherosclerotic heart disease of native coronary artery without angina pectoris; I27.2 Other secondary pulmonary hypertension; I95.89 Other hypotension; E78.5 Hyperlipidemia, unspecified; I10 Essential (primary) hypertension; N40.0 Benign prostatic hyperplasia without lower urinary tract symptoms; I48.91 Unspecified atrial fibrillation; I71.4 Abdominal aortic aneurysm, without rupture; Z95.1 Presence of aortocoronary bypass graft; Z95.810 Presence of automatic (implantable) cardiac defibrillator
CPT/HCPCS: 97110-GP; 97116-GP; 97161-GP; G0378; G8978-GP-CJ; G8979-GP-CI